=== PATIENT | female | born 1955 | race Caucasian/White ===

== ENCOUNTER → 2018-02-18 15:24 | Outpatient (CLI) | payer OTHER, SELFPAY ==
--- NOTE | 2018-02-18 15:30 | DI.RAD.S_ITS ---
PROCEDURE: XR HIP W PEL IF DONE LT MIN 4V INDICATIONS: Sprain of ligaments of lumbar spine, initial encounter TECHNIQUE: AP pelvis with lateral view(s) of both hip(s). COMPARISON: [facility], CR, XR LUMBAR SPINE 2-3V, 09/22/2017, 9:48. [facility], CR, XR HIP W PEL IF DONE LT MIN 4V, 09/22/2017, 9:57. FINDINGS: Bones: No fractures or dislocations. Pelvic ring appears intact. No suspicious bony lesions. There is mild superior joint space narrowing seen of both hips, with associated remodeling changes with subchondral sclerosis and osteophyte formation. Age-appropriate lower lumbar spine degenerative changes are noted. Soft tissues: The visualized bowel gas pattern is normal. No suspicious soft tissue calcifications. IMPRESSION: Mild degenerative change is seen of both hips by plain film. Dictated by: Marshall Blunt M.D. on 02/18/2018 at 15:50 Approved by: Marshall Blunt M.D. on 02/18/2018 at 15:51
== END ==
PROVIDERS: PCP Physical Medicine & Rehabilitation; Visit Provider Physical Medicine & Rehabilitation
DX: S33.5XXA Sprain of ligaments of lumbar spine, initial encounter (principal); M16.0 Bilateral primary osteoarthritis of hip
CPT/HCPCS: 73522

== ENCOUNTER → 2018-03-03 19:35 | Outpatient (CLI) | payer OTHER, SELFPAY ==
--- NOTE | 2018-03-03 19:36 | DI.MRI.S_ITS ---
PROCEDURE: MR PELVIS WO CON INDICATIONS: PELVIS PAIN POST GROUND LEVEL FALL TECHNIQUE: Noncontrast coronal and axial T1 spin echo and STIR through the bony pelvis. COMPARISON: [facility], CR, XR HIP W PEL IF DONE FLORA 3TO4V, 02/18/2018, 15:10. FINDINGS: Image quality: Excellent. Bones: Bone marrow of the pelvic ring, sacrum, and proximal femurs demonstrate normal overall signal. No definite bone contusions or fractures. There is mild periarticular bone marrow edema along the pubic symphysis, with a slight predominance inferiorly on the left. No discrete fracture line identified. No joint effusions. The visualized lower lumbar spine demonstrates mild degenerative disc disease at the lumbosacral junction. Tendons: The gluteus medius and minimus tendons appear intact, without associated muscle atrophy. The nearby proximal iliotibial band also appears intact. The iliopsoas tendon appears intact, without adjacent bursal fluid collections or evidence for impingement syndrome. The origin of the hamstring tendon is intact at the ischial tuberosity, as well as the associated sacrotuberous ligament. The straight and reflected heads of the rectus femoris muscle origin appear intact, as well as the conjoint tendon. Soft tissues: Visualized muscles demonstrate normal bulk and internal signal. No joint effusions. No free pelvic fluid. Bladder wall thickness is normal. There are 3 or 4 small fibroids within the left aspect of the uterus noted with incomplete evaluation. Visualized bowel loops are normal in caliber. IMPRESSION: 1. No fractures or bone contusions. 2. Mild periarticular bone marrow edema along the pubic symphysis is nonspecific and may reflect sequelae of a mild symphyseal sprain or pubic symphysitis. No discrete fracture identified. 3. Small uterine fibroids noted. Dictated by: Henok Caldwell M.D. on 03/04/2018 at 9:14 Approved by: Henok Caldwell M.D. on 03/04/2018 at 9:21
== END ==
PROVIDERS: PCP Physical Medicine & Rehabilitation; Visit Provider Physical Medicine & Rehabilitation
DX: R10.2 Pelvic and perineal pain (principal); D25.9 Leiomyoma of uterus, unspecified
CPT/HCPCS: 72195

== ENCOUNTER 2018-07-27 15:15 | Outpatient (RCR) | payer OTHER, SELFPAY ==
--- NOTE | 2017-09-30 10:50 | PT.OIE ---
Current Diagnoses Strain of muscle, fascia and tendon at neck level, initial encounter (09/29/17) Sprain of ligaments of lumbar spine, initial encounter (09/29/17) Provider Visit Care Team Role Provider Type Mee Licona MD Attending Provider Physician Primary Care Provider Specialty: Physical Medicine and Rehab Address: [address] [place] [address], [id number] Email: Physical Therapy Initial Evaluation PT-OP-A Visit Information Start: 09/30/17 09:57 Freq: Status: Active Protocol: Document 09/30/17 09:57 [facility] (Rec: 09/30/17 10:00 [facility] [email or web address]) Out-Patient Physical Therapy Visit Information Visit Information Visit Type Initial Evaluation Visit Start Time 04:00 Visit Stop Time 05:00 Total Visit Minutes 60 Visit Number 1 Number of DISABILITY AIDE Visits 0 Evaluation Information Evaluation Date 09/29/17 PT-OP-B Current Condition Start: 09/30/17 10:00 Freq: Status: Active Protocol: Document 09/30/17 10:00 [facility] (Rec: 09/30/17 10:13 [facility] [email or web address]) Current Condition History of Current Condition Onset Date 07/06/17 Current Complaints c/o sharp left sided pubic pain that occurs with sit- stand activities History of Current Condition Per patient report 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 She began having neck and back discomfort and she sought out care for these issues. The pubic bone pain came on slowly and was not addressed in PT or chiropractic. With PT, massage and child adolescent care her neck and back pain have diminished however her pubic bone symptoms are worsening and now she notes her left side of the pubic bone region aches all the time when sitting and is a sharp pain when she goes to stand. She also notes pain in the left buttock region. Breanne initially thought she had a bladder infection because of the pain in the pubic region but tests for this are negative. Prior Treatments and Tests Xrays are negative for any fractures Treatment Goals Patient/Caregiver Goals Serge's goals include eliminating her pain in the left buttock and pubic bone and that she is able to sit and perform sit to stand activities without pain. Prior Functional Status Baseline Function- ADL's Independent Baseline Function- Mobility Independent Current Functional Impairments (Reported) Functional Limitations- Other pain with sitting and pain with sit-stand activities PT-OP-C Subjective Start: 09/30/17 10:00 Freq: Status: Active Protocol: Document 09/30/17 10:00 [facility] (Rec: 09/30/17 10:13 [facility] [id number]) OP-PT Subjective Patient Comments Patient Comments Breanne describes pain in the left pubic bone as 6-8/10. It is brought on by sitting and sit-stand activities. Patient Reported Progress Worse OP-PT Pain Assessment Pain Assessment Grid Paper Pain Assessment Grid Completed Yes Location Left Groin Pain Location Details left pubic bone Intensity 8 Scale Used Numeric (1 - 10) Description Aching Sharp With Movement Frequency Intermittent Other Pain Aggravating Factors sitting and sit-stand PT-OP-J Posture/Palpation/Skin Start: 09/30/17 10:13 Freq: Status: Active Protocol: Document 09/30/17 10:14 [facility] (Rec: 09/30/17 10:48 [facility] [id number]) Posture Evaluation Position Standing Evaluation View Posterior Pelvis Posture (L) Iliac Crest Superior (R) PSIS Posterior (L) PSIS Inferior Weight Distribution Decreased Wt.Bear on (R) Comments Posture Comments Breanne is standing with weight on the left leg, if she shifts all her weight to the right pain is reproduced. Palpation Assessment Location Four Palpation Location left gluteals and piriformis Palpation Findings Soft Tissue Tightness Muscle Guarding Tenderness Three Palpation Location left sacral AWILDA and Left PSIS, right sacral base Palpation Findings Tenderness Palpation Details with palption there is a visable left torsion of the sacrum with greatest tenderness at the left AWILDA , left PSIS, and right sacral base. The right sacral base is more prominent than the left Two Palpation Location left adductos Palpation Findings Soft Tissue Tightness Spasm Muscle Guarding Tenderness Palpation Details tenderness of the left adductor at the attachment to the pubic bone and along the muscle belly. There is guarding along the muscle. No pain with AROM left hip or passive stretching of the left adductors in supine One Palpation Location pubic bone left side Palpation Findings Tenderness PT-OP-K Range of Motion Start: 09/30/17 10:13 Freq: Status: Active Protocol: Document 09/30/17 10:14 [facility] (Rec: 09/30/17 10:48 [facility] [id number]) Lumbar Spine Range of Motion Lumbar Spine Active Comments lumbar spine ROM is WFL in standing PT-OP-L Special Tests Start: 09/30/17 10:13 Freq: Status: Active Protocol: Document 09/30/17 10:14 [facility] (Rec: 09/30/17 10:48 [facility] [id number]) Special Tests Other Special Tests Special Tests standing march test is + for the left standing hip IR/ER test is + for left iliac outflare prone press up test is + for sacral torsion PT-OP-Q Treatments Start: 09/30/17 10:13 Freq: Status: Active Protocol: Document 09/30/17 10:14 [facility] (Rec: 09/30/17 10:48 [facility] [id number]) Therapeutic Exercises Supine Exercises 2 Supine Exercise Name piriformis stretch Reps/Minutes 1-2 reps each side holding 1-2 minutes each 1 Supine Exercise Name isometric ball squeeze Reps/Minutes 10 reps holding 5 seconds each Manual Therapy Treatment Soft Tissue Mobilization 1 Body Location left adductors Mobilization Type Myofascial Release Body Position Supine Comments MFR to the proximal attachment of the left adductors to the pubic ramus Joint Mobilizations 3 Joint SI joint Body Position right side Comments MET for sacral torsion 1 Joint SI joint Body Position Supine Comments MET for left iliac outflare Self-Care/Home Management Treatment Activities Self-Care/Home Management Activities the patient was educated on avoiding crossing her legs in sitting at this time. She was educated on SI alignment and to avoid single leg stance activities including dressing until her symptoms are resolved. PT-OP-T Assessment and Plan Start: 09/30/17 10:13 Freq: Status: Active Protocol: Document 09/30/17 10:14 [facility] (Rec: 09/30/17 10:48 [facility] [id number]) Physical Therapy Assessment Rehab Potential Rehabilitation Potential Excellent Evaluation Complexity Number of Personal Factors/Comorbidities 0 Number of Body Systems Impaired 1-2 Clinical Presentation at Evaluation Stable Impairments Impairments Activity Tolerance Pain Soft Tissue Mobility Other Impairments SI dysfunction Goals Four Impairment The patient lacks a home program for SI and pubic bone stabilization Short Term Goal (STG) Breanne will be given a home program for SI and pubic bone stabilization including pelvic floor training for the pubic bone and transverse abdominal training for the Si joint STG Duration 6 weeks Three Impairment Sacral torsion and out flare of the left innominant Short Term Goal (STG) correct sacral and SI alignment with manual therapy techniques and there is no tenderness to palpation at bony landmarks of the SI joint or along the sacrum STG Duration 6 weeks Two Impairment muscle guarding and spasm of the left adductor Short Term Goal (STG) With manual therapy techniques there is no longer spasm and tenderness to palpation of the left adductor STG Duration 4 weeks One Impairment pain at the left pubic bone with sitting and sit-stand Fdc Goal (LTG) Breanne reports no pain in sitting and is able to transfer from sit-stand without pain LTG Duration 8 weeks Assessment Summary Assessment Breanne presents to physical therapy with ongoing pain in the left pubic bone that has been worsening since her fall in June on her left hip and buttock. With examination today her it was found that her sacrum is in a left torsion and the ilium is outflared. This may be placing strain into the left pubic bone. She was tender to palpation at the left pubic bone but the joint did appear to be in alignment and her leg length was equal in supine. The adductor is very tight and guarded on the left but there was no pain reporduced with hip abduction. She has difficutly with hip ER in standing actively but all other movements are WFL. I worked on MFR for the left adductors as well as MET today for SI and sacral alignment and Breanne was educated on a bracing technique for the pubic bone to help with self alignment of her SI joint. Home education was given on avoiding single leg stance activities as well as crossing her legs until pain subsides. Physical Therapy Plan Frequency and Duration Frequency of Treatment 2x/Week Duration of Treatment 8 weeks Plan of Care Start Date 09/29/17 Plan of Care End Date 11/24/17 Therapeutic Interventions Therapeutic Interventions Home Exercise Program Joint Mobilizations Manual Therapy Neuromuscular Re-education Patient/Caregiver Education Self-Care/Home Management Soft Tissue Mobilization Therapeutic Exercises Modalities Cold Pack/Ice Massage Ultrasound Next Visit Focus/Plan Next Visit Plan recheck pelvic alignment next visit and progress SI and pubic bone stabilization exercises Provider Signature Date
--- NOTE | 2017-09-30 10:52 | PT.OPPOC ---
Current Diagnoses Strain of muscle, fascia and tendon at neck level, initial encounter (09/29/17) Sprain of ligaments of lumbar spine, initial encounter (09/29/17) Provider Visit Care Team Role Provider Type Mee Licona MD Attending Provider Physician Primary Care Provider Specialty: Physical Medicine and Rehab Address: [address] [place] [address], [id number] Email: Plan Of Care PT-OP-T Assessment and Plan Start: 09/30/17 10:13 Freq: Status: Active Protocol: Document 09/30/17 10:14 [facility] (Rec: 09/30/17 10:48 [facility] [email or web address]) Physical Therapy Assessment Rehab Potential Rehabilitation Potential Excellent Evaluation Complexity Number of Personal Factors/Comorbidities 0 Number of Body Systems Impaired 1-2 Clinical Presentation at Evaluation Stable Impairments Impairments Activity Tolerance Pain Soft Tissue Mobility Other Impairments SI dysfunction Goals Four Impairment The patient lacks a home program for SI and pubic bone stabilization Short Term Goal (STG) Breanne will be given a home program for SI and pubic bone stabilization including pelvic floor training for the pubic bone and transverse abdominal training for the Si joint STG Duration 6 weeks Three Impairment Sacral torsion and out flare of the left innominant Short Term Goal (STG) correct sacral and SI alignment with manual therapy techniques and there is no tenderness to palpation at bony landmarks of the SI joint or along the sacrum STG Duration 6 weeks Two Impairment muscle guarding and spasm of the left adductor Short Term Goal (STG) With manual therapy techniques there is no longer spasm and tenderness to palpation of the left adductor STG Duration 4 weeks One Impairment pain at the left pubic bone with sitting and sit-stand Manager [employer] Goal (LTG) Breanne reports no pain in sitting and is able to transfer from sit-stand without pain LTG Duration 8 weeks Assessment Summary Assessment Breanne presents to physical therapy with ongoing pain in the left pubic bone that has been worsening since her fall in June on her left hip and buttock. With examination today her it was found that her sacrum is in a left torsion and the ilium is outflared. This may be placing strain into the left pubic bone. She was tender to palpation at the left pubic bone but the joint did appear to be in alignment and her leg length was equal in supine. The adductor is very tight and guarded on the left but there was no pain reporduced with hip abduction. She has difficutly with hip ER in standing actively but all other movements are WFL. I worked on MFR for the left adductors as well as MET today for SI and sacral alignment and Breanne was educated on a bracing technique for the pubic bone to help with self alignment of her SI joint. Home education was given on avoiding single leg stance activities as well as crossing her legs until pain subsides. Physical Therapy Plan Frequency and Duration Frequency of Treatment 2x/Week Duration of Treatment 8 weeks Plan of Care Start Date 09/29/17 Plan of Care End Date 11/24/17 Therapeutic Interventions Therapeutic Interventions Home Exercise Program Joint Mobilizations Manual Therapy Neuromuscular Re-education Patient/Caregiver Education Self-Care/Home Management Soft Tissue Mobilization Therapeutic Exercises Modalities Cold Pack/Ice Massage Ultrasound Next Visit Focus/Plan Next Visit Plan recheck pelvic alignment next visit and progress SI and pubic bone stabilization exercises Plan of Care Dates Plan of Care Start Date 09/29/17 Plan of Care End Date 11/24/17 Please Sign and Return: I have reviewed this Plan of Care and certify that the skilled therapy services above are required to meet the patient???s needs. Physician Signature Date Printed Name and Credentials
--- NOTE | 2017-10-01 16:57 | PT.OTN ---
Current Diagnoses Strain of muscle, fascia and tendon at neck level, initial encounter (10/01/17) Sprain of ligaments of lumbar spine, initial encounter (10/01/17) Physical Therapy Treatment Note PT-OP-A Visit Information Start: 09/30/17 09:57 Freq: Status: Active Protocol: Document 09/30/17 09:57 [facility] (Rec: 09/30/17 10:00 [facility] [id number]) Out-Patient Physical Therapy Visit Information Visit Information Visit Type Initial Evaluation Visit Start Time 04:00 Visit Stop Time 05:00 Total Visit Minutes 60 Visit Number 1 Number of MANUFACTURED BUILDINGS SUPERVISOR Visits 0 Evaluation Information Evaluation Date 09/29/17 PT-OP-B Current Condition Start: 09/30/17 10:00 Freq: Status: Active Protocol: Document 09/30/17 10:00 [facility] (Rec: 09/30/17 10:13 [facility] [id number]) Current Condition History of Current Condition Onset Date 07/06/17 Current Complaints c/o sharp left sided pubic pain that occurs with sit- stand activities History of Current Condition Per patient report 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 She began having neck and back discomfort and she sought out care for these issues. The pubic bone pain came on slowly and was not addressed in PT or chiropractic. With PT, massage and child care teacher her neck and back pain have diminished however her pubic bone symptoms are worsening and now she notes her left side of the pubic bone region aches all the time when sitting and is a sharp pain when she goes to stand. She also notes pain in the left buttock region. Beranne initially thought she had a bladder infection because of the pain in the pubic region but tests for this are negative. Prior Treatments and Tests Xrays are negative for any fractures Treatment Goals Patient/Caregiver Goals Serge's goals include eliminating her pain in the left buttock and pubic bone and that she is able to sit and perform sit to stand activities without pain. Prior Functional Status Baseline Function- ADL's Independent Baseline Function- Mobility Independent Current Functional Impairments (Reported) Functional Limitations- Other pain with sitting and pain with sit-stand activities PT-OP-C Subjective Start: 09/30/17 10:00 Freq: Status: Active Protocol: Document 10/01/17 16:43 [facility] (Rec: 10/01/17 16:56 [facility] [id number]) OP-PT Subjective Patient Comments Patient Comments Breanne reports that her symptoms are much improved and she hasn't had the sharp pain with transitions or sit-stand as bad Patient Reported Progress Improving PT-OP-J Posture/Palpation/Skin Start: 09/30/17 10:13 Freq: Status: Active Protocol: Document 09/30/17 10:14 [facility] (Rec: 09/30/17 10:48 [facility] [email or web address]) Posture Evaluation Position Standing Evaluation View Posterior Pelvis Posture (L) Iliac Crest Superior (R) PSIS Posterior (L) PSIS Inferior Weight Distribution Decreased Wt.Bear on (R) Comments Posture Comments Breanne is standing with weight on the left leg, if she shifts all her weight to the right pain is reproduced. Palpation Assessment Location Four Palpation Location left gluteals and piriformis Palpation Findings Soft Tissue Tightness Muscle Guarding Tenderness Three Palpation Location left sacral AWILDA and Left PSIS, right sacral base Palpation Findings Tenderness Palpation Details with palption there is a visable left torsion of the sacrum with greatest tenderness at the left AWILDA , left PSIS, and right sacral base. The right sacral base is more prominent than the left Two Palpation Location left adductos Palpation Findings Soft Tissue Tightness Spasm Muscle Guarding Tenderness Palpation Details tenderness of the left adductor at the attachment to the pubic bone and along the muscle belly. There is guarding along the muscle. No pain with AROM left hip or passive stretching of the left adductors in supine One Palpation Location pubic bone left side Palpation Findings Tenderness PT-OP-K Range of Motion Start: 09/30/17 10:13 Freq: Status: Active Protocol: Document 09/30/17 10:14 [facility] (Rec: 09/30/17 10:48 [facility] [id number]) Lumbar Spine Range of Motion Lumbar Spine Active Comments lumbar spine ROM is WFL in standing PT-OP-L Special Tests Start: 09/30/17 10:13 Freq: Status: Active Protocol: Document 09/30/17 10:14 [facility] (Rec: 09/30/17 10:48 [facility] [email or web address]) Special Tests Other Special Tests Special Tests standing march test is + for the left standing hip IR/ER test is + for left iliac outflare prone press up test is + for sacral torsion PT-OP-Q Treatments Start: 09/30/17 10:13 Freq: Status: Active Protocol: Document 10/01/17 16:43 [facility] (Rec: 10/01/17 16:56 [facility] [id number]) Therapeutic Exercises Supine Exercises 2 Supine Exercise Name piriformis stretch Reps/Minutes 1-2 reps each side holding 1-2 minutes each 1 Supine Exercise Name isometric ball squeeze Reps/Minutes 10 reps holding 5 seconds each Other Exercises 1 Other Exercise Name quadraped cat cow and sidebends Reps/Minutes 10 reps each Comments for home exercise program Manual Therapy Treatment Soft Tissue Mobilization 2 Body Location left piriformis Mobilization Type Myofascial Release Intensity/Depth Moderate Body Position Prone Comments MFR along the sacral border and into the muscle belly of the piriformis 1 Body Location left adductors Mobilization Type Myofascial Release Body Position Supine Comments MFR to the proximal attachment of the left adductors to the pubic ramus Joint Mobilizations 1 Joint SI joint Body Position Supine Comments MET for left iliac outflare PT-OP-T Assessment and Plan Start: 09/30/17 10:13 Freq: Status: Active Protocol: Document 10/01/17 16:43 [facility] (Rec: 10/01/17 16:56 [facility] [email or web address]) Physical Therapy Assessment Assessment Summary Assessment Breanne is doing better from last visit. There is still tightness at the adductors but this is reduced overall and she noted that MFR over the adductors was not as tender today. In prone she is slightly rotated to the right still but her basia landmarks on the sacral base are equal. She is spin tank tender to palpation at the L PSIS Physical Therapy Plan Next Visit Focus/Plan Next Visit Plan add in pelvic floor stabilization next visit and prone opp leg extension
--- NOTE | 2017-10-07 09:52 | PT.OTN ---
Current Diagnoses Strain of muscle, fascia and tendon at neck level, initial encounter (10/06/17) Sprain of ligaments of lumbar spine, initial encounter (10/06/17) Physical Therapy Treatment Note PT-OP-A Visit Information Start: 09/30/17 09:57 Freq: Status: Active Protocol: Document 10/06/17 16:45 [facility] (Rec: 10/07/17 09:52 [facility] [email or web address]) Out-Patient Physical Therapy Visit Information Visit Information Visit Type Treatment Note Visit Start Time 14:30 Visit Stop Time 15:15 Total Visit Minutes 45 Visit Number 3 Number of INSURANCE RATER Visits 0 PT-OP-B Current Condition Start: 09/30/17 10:00 Freq: Status: Active Protocol: Document 09/30/17 10:00 [facility] (Rec: 09/30/17 10:13 [facility] [email or web address]) Current Condition History of Current Condition Onset Date 07/06/17 Current Complaints c/o sharp left sided pubic pain that occurs with sit- stand activities History of Current Condition Per patient report 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 She began having neck and back discomfort and she sought out care for these issues. The pubic bone pain came on slowly and was not addressed in PT or chiropractic. With PT, massage and director medicare sales her neck and back pain have diminished however her pubic bone symptoms are worsening and now she notes her left side of the pubic bone region aches all the time when sitting and is a sharp pain when she goes to stand. She also notes pain in the left buttock region. Breanne initially thought she had a bladder infection because of the pain in the pubic region but tests for this are negative. Prior Treatments and Tests Xrays are negative for any fractures Treatment Goals Patient/Caregiver Goals Serge's goals include eliminating her pain in the left buttock and pubic bone and that she is able to sit and perform sit to stand activities without pain. Prior Functional Status Baseline Function- ADL's Independent Baseline Function- Mobility Independent Current Functional Impairments (Reported) Functional Limitations- Other pain with sitting and pain with sit-stand activities PT-OP-C Subjective Start: 09/30/17 10:00 Freq: Status: Active Protocol: Document 10/06/17 17:38 [facility] (Rec: 10/06/17 17:42 [facility] [email or web address]) OP-PT Subjective Patient Comments Patient Comments breanne notes her pain isn't as sharp but within a few days of treatment she was experiencing symptoms again Patient Reported Progress Improving PT-OP-J Posture/Palpation/Skin Start: 09/30/17 10:13 Freq: Status: Active Protocol: Document 09/30/17 10:14 [facility] (Rec: 09/30/17 10:48 [facility] [email or web address]) Posture Evaluation Position Standing Evaluation View Posterior Pelvis Posture (L) Iliac Crest Superior (R) PSIS Posterior (L) PSIS Inferior Weight Distribution Decreased Wt.Bear on (R) Comments Posture Comments Breanne is standing with weight on the left leg, if she shifts all her weight to the right pain is reproduced. Palpation Assessment Location Four Palpation Location left gluteals and piriformis Palpation Findings Soft Tissue Tightness Muscle Guarding Tenderness Three Palpation Location left sacral AWILDA and Left PSIS, right sacral base Palpation Findings Tenderness Palpation Details with palption there is a visable left torsion of the sacrum with greatest tenderness at the left AWILDA , left PSIS, and right sacral base. The right sacral base is more prominent than the left Two Palpation Location left adductos Palpation Findings Soft Tissue Tightness Spasm Muscle Guarding Tenderness Palpation Details tenderness of the left adductor at the attachment to the pubic bone and along the muscle belly. There is guarding along the muscle. No pain with AROM left hip or passive stretching of the left adductors in supine One Palpation Location pubic bone left side Palpation Findings Tenderness PT-OP-K Range of Motion Start: 09/30/17 10:13 Freq: Status: Active Protocol: Document 09/30/17 10:14 [facility] (Rec: 09/30/17 10:48 [facility] [email or web address]) Lumbar Spine Range of Motion Lumbar Spine Active Comments lumbar spine ROM is WFL in standing PT-OP-L Special Tests Start: 09/30/17 10:13 Freq: Status: Active Protocol: Document 09/30/17 10:14 [facility] (Rec: 09/30/17 10:48 [facility] [email or web address]) Special Tests Other Special Tests Special Tests standing july test is + for the left standing hip IR/ER test is + for left iliac outflare prone press up test is + for sacral torsion PT-OP-Q Treatments Start: 09/30/17 10:13 Freq: Status: Active Protocol: Document 10/06/17 17:38 [facility] (Rec: 10/06/17 17:42 [facility] [email or web address]) Therapeutic Exercises Supine Exercises 5 Supine Exercise Name pelvic floor isolation 10 seconds on 10 seconds off Reps/Minutes 10 reps 4 Supine Exercise Name Sit-stand with TA and pelvic floor engagement Comments no pain if she engages her pelvic floor and TA 3 Supine Exercise Name TA stabilization with marches Reps/Minutes 10-20 2 Supine Exercise Name piriformis stretch Reps/Minutes 1-2 reps each side holding 1-2 minutes each 1 Supine Exercise Name isometric ball squeeze Reps/Minutes 10 reps holding 5 seconds each Manual Therapy Treatment Soft Tissue Mobilization 2 Body Location left piriformis Mobilization Type Myofascial Release Intensity/Depth Moderate Body Position Prone Comments MFR along the sacral border and into the muscle belly of the piriformis Joint Mobilizations 3 Joint SI joint Body Position right side Comments MET for sacral torsion PT-OP-T Assessment and Plan Start: 09/30/17 10:13 Freq: Status: Active Protocol: Document 10/06/17 16:45 [facility] (Rec: 10/07/17 09:52 [facility] [email or web address]) Physical Therapy Assessment Assessment Summary Assessment Decreased sharp pain in the pubic bone. L ASLR test is positive with unlocking of the Si joint. Treatment today included TA stabilization and education on pelvic floor and TA activation prior to standing. With TA and pelvic floor activation prior to standing Breanne did not experience any pain with sit to stand. She was also given a temporaty SI belt and this also helped with sit to stand Physical Therapy Plan Frequency and Duration Frequency of Treatment 2x/Week Duration of Treatment 8 weeks Plan of Care Start Date 09/29/17 Plan of Care End Date 11/24/17 Therapeutic Interventions Therapeutic Interventions Home Exercise Program Joint Mobilizations Manual Therapy Neuromuscular Re-education Patient/Caregiver Education Self-Care/Home Management Soft Tissue Mobilization Therapeutic Exercises Next Visit Focus/Plan Next Visit Plan review special tests and look at TA and pelvic floor activation
--- NOTE | 2017-10-13 18:08 | PT.OTN ---
Current Diagnoses Strain of muscle, fascia and tendon at neck level, initial encounter (10/13/17) Sprain of ligaments of lumbar spine, initial encounter (10/13/17) Physical Therapy Treatment Note PT-OP-A Visit Information Start: 09/30/17 09:57 Freq: Status: Active Protocol: Document 10/13/17 15:34 [facility] (Rec: 10/13/17 15:36 [facility] [email or web address]) Out-Patient Physical Therapy Visit Information Visit Information Visit Type Treatment Note Visit Start Time 14:30 Visit Stop Time 15:15 Total Visit Minutes 45 Visit Number 4 Evaluation Information Evaluation Date 09/29/17 PT-OP-B Current Condition Start: 09/30/17 10:00 Freq: Status: Active Protocol: Document 09/30/17 10:00 [facility] (Rec: 09/30/17 10:13 [facility] [email or web address]) Current Condition History of Current Condition Onset Date 07/06/17 Current Complaints c/o sharp left sided pubic pain that occurs with sit- stand activities History of Current Condition Per patient report 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 She began having neck and back discomfort and she sought out care for these issues. The pubic bone pain came on slowly and was not addressed in PT or chiropractic. With PT, massage and patient care secretary her neck and back pain have diminished however her pubic bone symptoms are worsening and now she notes her left side of the pubic bone region aches all the time when sitting and is a sharp pain when she goes to stand. She also notes pain in the left buttock region. Breanne initially thought she had a bladder infection because of the pain in the pubic region but tests for this are negative. Prior Treatments and Tests Xrays are negative for any fractures Treatment Goals Patient/Caregiver Goals Serge's goals include eliminating her pain in the left buttock and pubic bone and that she is able to sit and perform sit to stand activities without pain. Prior Functional Status Baseline Function- ADL's Independent Baseline Function- Mobility Independent Current Functional Impairments (Reported) Functional Limitations- Other pain with sitting and pain with sit-stand activities PT-OP-C Subjective Start: 09/30/17 10:00 Freq: Status: Active Protocol: Document 10/13/17 15:34 [facility] (Rec: 10/13/17 15:36 [facility] [email or web address]) OP-PT Subjective Patient Comments Patient Comments Breanne reports she has no sharp pain now but a dull ache in the pelvic floor region on the left. PT-OP-J Posture/Palpation/Skin Start: 09/30/17 10:13 Freq: Status: Active Protocol: Document 09/30/17 10:14 [facility] (Rec: 09/30/17 10:48 [facility] [email or web address]) Posture Evaluation Position Standing Evaluation View Posterior Pelvis Posture (L) Iliac Crest Superior (R) PSIS Posterior (L) PSIS Inferior Weight Distribution Decreased Wt.Bear on (R) Comments Posture Comments Breanne is standing with weight on the left leg, if she shifts all her weight to the right pain is reproduced. Palpation Assessment Location Four Palpation Location left gluteals and piriformis Palpation Findings Soft Tissue Tightness Muscle Guarding Tenderness Three Palpation Location left sacral AWILDA and Left PSIS, right sacral base Palpation Findings Tenderness Palpation Details with palption there is a visable left torsion of the sacrum with greatest tenderness at the left AWILDA , left PSIS, and right sacral base. The right sacral base is more prominent than the left Two Palpation Location left adductos Palpation Findings Soft Tissue Tightness Spasm Muscle Guarding Tenderness Palpation Details tenderness of the left adductor at the attachment to the pubic bone and along the muscle belly. There is guarding along the muscle. No pain with AROM left hip or passive stretching of the left adductors in supine One Palpation Location pubic bone left side Palpation Findings Tenderness PT-OP-K Range of Motion Start: 09/30/17 10:13 Freq: Status: Active Protocol: Document 09/30/17 10:14 [facility] (Rec: 09/30/17 10:48 [facility] [email or web address]) Lumbar Spine Range of Motion Lumbar Spine Active Comments lumbar spine ROM is WFL in standing PT-OP-L Special Tests Start: 09/30/17 10:13 Freq: Status: Active Protocol: Document 09/30/17 10:14 [facility] (Rec: 09/30/17 10:48 [facility] [email or web address]) Special Tests Other Special Tests Special Tests standing july test is + for the left standing hip IR/ER test is + for left iliac outflare prone press up test is + for sacral torsion PT-OP-Q Treatments Start: 09/30/17 10:13 Freq: Status: Active Protocol: Document 10/13/17 16:01 [facility] (Rec: 10/13/17 18:06 [facility] [email or web address]) Therapeutic Exercises Supine Exercises 6 Supine Exercise Name happy baby Reps/Minutes hold 1-2 min 3 Supine Exercise Name TA stabilization with marches Reps/Minutes 10-20 2 Supine Exercise Name piriformis stretch Reps/Minutes 1-2 reps each side holding 1-2 minutes each 1 Supine Exercise Name isometric ball squeeze Reps/Minutes 10 reps holding 5 seconds each Manual Therapy Treatment Soft Tissue Mobilization 2 Body Location left obturator internus Mobilization Type Myofascial Release Intensity/Depth Moderate Body Position Supine PT-OP-R Modalities Start: 10/13/17 18:06 Freq: Status: Active Protocol: Document 10/13/17 18:06 [facility] (Rec: 10/13/17 18:07 [facility] [email or web address]) Ultrasound Therapy Treatment Left Patient Position Supine Coupling Medium Ultrasound Gel Frequency Setting (mHz) 1 Mode Setting Continuous Intensity Setting (w/cm2) 1.5 Patient Tolerance Good Comment Treatment Comment left obuturator internus in supine PT-OP-T Assessment and Plan Start: 09/30/17 10:13 Freq: Status: Active Protocol: Document 10/13/17 16:01 [facility] (Rec: 10/13/17 18:06 [facility] [email or web address]) Physical Therapy Assessment Assessment Summary Assessment no complaints of sharp pain now and instead a dull ache in the left pelvic floor region Physical Therapy Plan Frequency and Duration Frequency of Treatment 2x/Week Duration of Treatment 8 weeks Plan of Care Start Date 09/29/17 Plan of Care End Date 11/24/17 Therapeutic Interventions Therapeutic Interventions Home Exercise Program Joint Mobilizations Manual Therapy Neuromuscular Re-education Patient/Caregiver Education Self-Care/Home Management Soft Tissue Mobilization Therapeutic Exercises Next Visit Focus/Plan Next Visit Plan reassess muscle guarding of the pelvic floor Please Sign and Return: I have reviewed this Plan of Care and certify that the skilled therapy services above are required to meet the patient???s needs. Physician Signature Date Printed Name and Credentials Clinical Instructor Signature Printed Name and Credentials
--- NOTE | 2017-11-01 22:10 | PT.OTN ---
Current Diagnoses Strain of muscle, fascia and tendon at neck level, initial encounter (10/29/17) Sprain of ligaments of lumbar spine, initial encounter (10/29/17) Physical Therapy Treatment Note PT-OP-A Visit Information Start: 09/30/17 09:57 Freq: Status: Active Protocol: Document 10/29/17 02:30 [facility] (Rec: 11/01/17 21:56 [facility] [email or web address]) Out-Patient Physical Therapy Visit Information Visit Information Visit Type Treatment Note Visit Start Time 14:30 Visit Stop Time 15:15 Total Visit Minutes 45 Visit Number 5 PT-OP-B Current Condition Start: 09/30/17 10:00 Freq: Status: Active Protocol: Document 09/30/17 10:00 [facility] (Rec: 09/30/17 10:13 [facility] [email or web address]) Current Condition History of Current Condition Onset Date 07/06/17 Current Complaints c/o sharp left sided pubic pain that occurs with sit- stand activities History of Current Condition Per patient report 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 She began having neck and back discomfort and she sought out care for these issues. The pubic bone pain came on slowly and was not addressed in PT or chiropractic. With PT, massage and foster care worker her neck and back pain have diminished however her pubic bone symptoms are worsening and now she notes her left side of the pubic bone region aches all the time when sitting and is a sharp pain when she goes to stand. She also notes pain in the left buttock region. Breanne initially thought she had a bladder infection because of the pain in the pubic region but tests for this are negative. Prior Treatments and Tests Xrays are negative for any fractures Treatment Goals Patient/Caregiver Goals Serge's goals include eliminating her pain in the left buttock and pubic bone and that she is able to sit and perform sit to stand activities without pain. Prior Functional Status Baseline Function- ADL's Independent Baseline Function- Mobility Independent Current Functional Impairments (Reported) Functional Limitations- Other pain with sitting and pain with sit-stand activities PT-OP-C Subjective Start: 09/30/17 10:00 Freq: Status: Active Protocol: Document 10/29/17 02:30 [facility] (Rec: 11/01/17 21:56 [facility] [email or web address]) OP-PT Subjective Patient Comments Patient Comments Breanne reports she can tell she didn't do PT for 2 weeks and is sore again in her adductors. The sharp pain is gone but she still has achey pain. She has been doing testing this past week so she has been sitting more PT-OP-J Posture/Palpation/Skin Start: 09/30/17 10:13 Freq: Status: Active Protocol: Document 09/30/17 10:14 [facility] (Rec: 09/30/17 10:48 [facility] [email or web address]) Posture Evaluation Position Standing Evaluation View Posterior Pelvis Posture (L) Iliac Crest Superior (R) PSIS Posterior (L) PSIS Inferior Weight Distribution Decreased Wt.Bear on (R) Comments Posture Comments Breanne is standing with weight on the left leg, if she shifts all her weight to the right pain is reproduced. Palpation Assessment Location Four Palpation Location left gluteals and piriformis Palpation Findings Soft Tissue Tightness Muscle Guarding Tenderness Three Palpation Location left sacral AWILDA and Left PSIS, right sacral base Palpation Findings Tenderness Palpation Details with palption there is a visable left torsion of the sacrum with greatest tenderness at the left AWILDA , left PSIS, and right sacral base. The right sacral base is more prominent than the left Two Palpation Location left adductos Palpation Findings Soft Tissue Tightness Spasm Muscle Guarding Tenderness Palpation Details tenderness of the left adductor at the attachment to the pubic bone and along the muscle belly. There is guarding along the muscle. No pain with AROM left hip or passive stretching of the left adductors in supine One Palpation Location pubic bone left side Palpation Findings Tenderness PT-OP-K Range of Motion Start: 09/30/17 10:13 Freq: Status: Active Protocol: Document 09/30/17 10:14 [facility] (Rec: 09/30/17 10:48 [facility] [email or web address]) Lumbar Spine Range of Motion Lumbar Spine Active Comments lumbar spine ROM is WFL in standing PT-OP-L Special Tests Start: 09/30/17 10:13 Freq: Status: Active Protocol: Document 09/30/17 10:14 [facility] (Rec: 09/30/17 10:48 [facility] [email or web address]) Special Tests Other Special Tests Special Tests standing march test is + for the left standing hip IR/ER test is + for left iliac outflare prone press up test is + for sacral torsion PT-OP-Q Treatments Start: 09/30/17 10:13 Freq: Status: Active Protocol: Document 10/29/17 02:30 [facility] (Rec: 11/01/17 21:56 [facility] [email or web address]) Therapeutic Exercises Supine Exercises 6 Supine Exercise Name happy baby Reps/Minutes hold 1-2 min 5 Supine Exercise Name pelvic floor isolation 10 seconds on 10 seconds off Reps/Minutes 10 reps 3 Supine Exercise Name TA stabilization with marches Reps/Minutes 10-20 2 Supine Exercise Name piriformis stretch Reps/Minutes 1-2 reps each side holding 1-2 minutes each Manual Therapy Treatment Soft Tissue Mobilization 3 Body Location external pelvic floor release Body Position Hooklying 1 Body Location left adductor release Body Position Supine Joint Mobilizations 2 Joint left pubic upslip 3 Joint SI joint Body Position right side Comments MET for sacral torsion PT-OP-R Modalities Start: 10/13/17 18:06 Freq: Status: Active Protocol: Document 10/29/17 02:30 [facility] (Rec: 11/01/17 21:56 [facility] [email or web address]) Ultrasound Therapy Treatment Left Patient Position Supine Coupling Medium Ultrasound Gel Frequency Setting (mHz) 1 Mode Setting Continuous Intensity Setting (w/cm2) 1.5 Comments left adductor proximal attachment PT-OP-T Assessment and Plan Start: 09/30/17 10:13 Freq: Status: Active Protocol: Document 10/29/17 02:30 [facility] (Rec: 11/01/17 21:56 [facility] [email or web address]) Physical Therapy Assessment Assessment Summary Assessment tenderness in the posterior pelvic floor noted today and wondering if pelvic floor spasm could be the lingering pain Markay is experiencing. Decreased adductor tightness following treatment. Physical Therapy Plan Frequency and Duration Frequency of Treatment 2x/Week Duration of Treatment 8 weeks Plan of Care Start Date 09/29/17 Plan of Care End Date 11/24/17 Therapeutic Interventions Therapeutic Interventions Home Exercise Program Joint Mobilizations Manual Therapy Neuromuscular Re-education Patient/Caregiver Education Self-Care/Home Management Soft Tissue Mobilization Therapeutic Exercises Modalities Ultrasound Next Visit Focus/Plan Next Visit Plan consider pelvic floor EMG biofeedback for relaxed awareness of the pelvic floor. Add quadraped TA stabilization Please Sign and Return: I have reviewed this Plan of Care and certify that the skilled therapy services above are required to meet the patient?s needs. Physician Signature Date Printed Name and Credentials Clinical Instructor Signature Printed Name and Credentials
--- NOTE | 2017-11-11 09:26 | PT.OTN ---
Current Diagnoses Strain of muscle, fascia and tendon at neck level, initial encounter (11/10/17) Sprain of ligaments of lumbar spine, initial encounter (11/10/17) Physical Therapy Treatment Note PT-OP-A Visit Information Start: 09/30/17 09:57 Freq: Status: Active Protocol: Document 11/10/17 13:45 [facility] (Rec: 11/11/17 09:26 [facility] [email or web address]) Out-Patient Physical Therapy Visit Information Visit Information Visit Type Treatment Note Visit Start Time 13:45 Visit Stop Time 14:30 Total Visit Minutes 45 Visit Number 6 Number of COST ESTIMATING MANAGER Visits 0 PT-OP-B Current Condition Start: 09/30/17 10:00 Freq: Status: Active Protocol: Document 09/30/17 10:00 [facility] (Rec: 09/30/17 10:13 [facility] [email or web address]) Current Condition History of Current Condition Onset Date 07/06/17 Current Complaints c/o sharp left sided pubic pain that occurs with sit- stand activities History of Current Condition Per patient report 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 She began having neck and back discomfort and she sought out care for these issues. The pubic bone pain came on slowly and was not addressed in PT or chiropractic. With PT, massage and health care facilities inspector her neck and back pain have diminished however her pubic bone symptoms are worsening and now she notes her left side of the pubic bone region aches all the time when sitting and is a sharp pain when she goes to stand. She also notes pain in the left buttock region. Breanne initially thought she had a bladder infection because of the pain in the pubic region but tests for this are negative. Prior Treatments and Tests Xrays are negative for any fractures Treatment Goals Patient/Caregiver Goals Serge's goals include eliminating her pain in the left buttock and pubic bone and that she is able to sit and perform sit to stand activities without pain. Prior Functional Status Baseline Function- ADL's Independent Baseline Function- Mobility Independent Current Functional Impairments (Reported) Functional Limitations- Other pain with sitting and pain with sit-stand activities PT-OP-C Subjective Start: 09/30/17 10:00 Freq: Status: Active Protocol: Document 11/10/17 13:45 [facility] (Rec: 11/11/17 09:26 [facility] [email or web address]) OP-PT Subjective Patient Comments Patient Comments Breanne reports she does well after PT for a few days but with two weeks inbetween treatments she becomes sore again. Not the sharp pain but dull and achey. PT-OP-J Posture/Palpation/Skin Start: 09/30/17 10:13 Freq: Status: Active Protocol: Document 09/30/17 10:14 [facility] (Rec: 09/30/17 10:48 [facility] [email or web address]) Posture Evaluation Position Standing Evaluation View Posterior Pelvis Posture (L) Iliac Crest Superior (R) PSIS Posterior (L) PSIS Inferior Weight Distribution Decreased Wt.Bear on (R) Comments Posture Comments Breanne is standing with weight on the left leg, if she shifts all her weight to the right pain is reproduced. Palpation Assessment Location Four Palpation Location left gluteals and piriformis Palpation Findings Soft Tissue Tightness Muscle Guarding Tenderness Three Palpation Location left sacral AWILDA and Left PSIS, right sacral base Palpation Findings Tenderness Palpation Details with palption there is a visable left torsion of the sacrum with greatest tenderness at the left AWILDA , left PSIS, and right sacral base. The right sacral base is more prominent than the left Two Palpation Location left adductos Palpation Findings Soft Tissue Tightness Spasm Muscle Guarding Tenderness Palpation Details tenderness of the left adductor at the attachment to the pubic bone and along the muscle belly. There is guarding along the muscle. No pain with AROM left hip or passive stretching of the left adductors in supine One Palpation Location pubic bone left side Palpation Findings Tenderness PT-OP-K Range of Motion Start: 09/30/17 10:13 Freq: Status: Active Protocol: Document 09/30/17 10:14 [facility] (Rec: 09/30/17 10:48 [facility] [email or web address]) Lumbar Spine Range of Motion Lumbar Spine Active Comments lumbar spine ROM is WFL in standing PT-OP-L Special Tests Start: 09/30/17 10:13 Freq: Status: Active Protocol: Document 09/30/17 10:14 [facility] (Rec: 09/30/17 10:48 [facility] [email or web address]) Special Tests Other Special Tests Special Tests standing march test is + for the left standing hip IR/ER test is + for left iliac outflare prone press up test is + for sacral torsion PT-OP-Q Treatments Start: 09/30/17 10:13 Freq: Status: Active Protocol: Document 11/10/17 13:45 [facility] (Rec: 11/11/17 09:26 [facility] [email or web address]) Manual Therapy Treatment Soft Tissue Mobilization 3 Body Location external pelvic floor release Body Position Hooklying 2 Body Location left obturator internus Mobilization Type Myofascial Release Intensity/Depth Moderate Body Position Supine Comments prone, supine and sidelying 1 Body Location left adductor release Body Position Supine PT-OP-R Modalities Start: 10/13/17 18:06 Freq: Status: Active Protocol: Document 11/10/17 13:45 [facility] (Rec: 11/11/17 09:26 [facility] [email or web address]) Ultrasound Therapy Treatment Left Patient Position Supine Coupling Medium Ultrasound Gel Frequency Setting (mHz) 1 Mode Setting Continuous Intensity Setting (w/cm2) 1.5 Comments left adductor proximal attachment PT-OP-T Assessment and Plan Start: 09/30/17 10:13 Freq: Status: Active Protocol: Document 11/10/17 13:45 [facility] (Rec: 11/11/17 09:26 [facility] [email or web address]) Physical Therapy Assessment Assessment Summary Assessment symptoms seem to be more pelvic floor related now than adductor related. Worked on obturator internus release, pelvic floor contract relax and stretches for the pelvic floor. Breanne may benefit from EMG biofeedback for relaxed awareness of the pelvic floor Physical Therapy Plan Frequency and Duration Frequency of Treatment 2x/Week Duration of Treatment 8 weeks Plan of Care Start Date 09/29/17 Plan of Care End Date 11/24/17 Therapeutic Interventions Therapeutic Interventions Home Exercise Program Joint Mobilizations Manual Therapy Neuromuscular Re-education Patient/Caregiver Education Self-Care/Home Management Soft Tissue Mobilization Therapeutic Exercises Modalities Ultrasound Next Visit Focus/Plan Next Visit Plan reassess leg length next visit and continue to progress strength of the inner core
--- NOTE | 2017-12-01 18:20 | PT.OTN ---
Current Diagnoses Strain of muscle, fascia and tendon at neck level, initial encounter (12/01/17) Sprain of ligaments of lumbar spine, initial encounter (12/01/17) Physical Therapy Treatment Note PT-OP-A Visit Information Start: 09/30/17 09:57 Freq: Status: Active Protocol: Document 12/01/17 18:16 [facility] (Rec: 12/01/17 18:20 [facility] [email or web address]) Out-Patient Physical Therapy Visit Information Visit Information Visit Type Treatment Note Visit Start Time 15:25 Visit Stop Time 16:00 Total Visit Minutes 35 Visit Number 7 Number of POLICY SERVICES REPRESENTATIVE Visits 0 PT-OP-B Current Condition Start: 09/30/17 10:00 Freq: Status: Active Protocol: Document 09/30/17 10:00 [facility] (Rec: 09/30/17 10:13 [facility] [email or web address]) Current Condition History of Current Condition Onset Date 07/06/17 Current Complaints c/o sharp left sided pubic pain that occurs with sit- stand activities History of Current Condition Per patient report 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 She began having neck and back discomfort and she sought out care for these issues. The pubic bone pain came on slowly and was not addressed in PT or chiropractic. With PT, massage and post acute care nurse practitioner her neck and back pain have diminished however her pubic bone symptoms are worsening and now she notes her left side of the pubic bone region aches all the time when sitting and is a sharp pain when she goes to stand. She also notes pain in the left buttock region. Breanne initially thought she had a bladder infection because of the pain in the pubic region but tests for this are negative. Prior Treatments and Tests Xrays are negative for any fractures Treatment Goals Patient/Caregiver Goals Serge's goals include eliminating her pain in the left buttock and pubic bone and that she is able to sit and perform sit to stand activities without pain. Prior Functional Status Baseline Function- ADL's Independent Baseline Function- Mobility Independent Current Functional Impairments (Reported) Functional Limitations- Other pain with sitting and pain with sit-stand activities PT-OP-C Subjective Start: 09/30/17 10:00 Freq: Status: Active Protocol: Document 12/01/17 18:16 [facility] (Rec: 12/01/17 18:20 [facility] [email or web address]) OP-PT Subjective Patient Comments Patient Comments overall good improvement and Breanne notes she doesn't feel she needs the SI belt any more PT-OP-J Posture/Palpation/Skin Start: 09/30/17 10:13 Freq: Status: Active Protocol: Document 09/30/17 10:14 [facility] (Rec: 09/30/17 10:48 [facility] [email or web address]) Posture Evaluation Position Standing Evaluation View Posterior Pelvis Posture (L) Iliac Crest Superior (R) PSIS Posterior (L) PSIS Inferior Weight Distribution Decreased Wt.Bear on (R) Comments Posture Comments Breanne is standing with weight on the left leg, if she shifts all her weight to the right pain is reproduced. Palpation Assessment Location Four Palpation Location left gluteals and piriformis Palpation Findings Soft Tissue Tightness Muscle Guarding Tenderness Three Palpation Location left sacral AWILDA and Left PSIS, right sacral base Palpation Findings Tenderness Palpation Details with palption there is a visable left torsion of the sacrum with greatest tenderness at the left AWILDA , left PSIS, and right sacral base. The right sacral base is more prominent than the left Two Palpation Location left adductos Palpation Findings Soft Tissue Tightness Spasm Muscle Guarding Tenderness Palpation Details tenderness of the left adductor at the attachment to the pubic bone and along the muscle belly. There is guarding along the muscle. No pain with AROM left hip or passive stretching of the left adductors in supine One Palpation Location pubic bone left side Palpation Findings Tenderness PT-OP-K Range of Motion Start: 09/30/17 10:13 Freq: Status: Active Protocol: Document 09/30/17 10:14 [facility] (Rec: 09/30/17 10:48 [facility] [email or web address]) Lumbar Spine Range of Motion Lumbar Spine Active Comments lumbar spine ROM is WFL in standing PT-OP-L Special Tests Start: 09/30/17 10:13 Freq: Status: Active Protocol: Document 09/30/17 10:14 [facility] (Rec: 09/30/17 10:48 [facility] [email or web address]) Special Tests Other Special Tests Special Tests standing march test is + for the left standing hip IR/ER test is + for left iliac outflare prone press up test is + for sacral torsion PT-OP-Q Treatments Start: 09/30/17 10:13 Freq: Status: Active Protocol: Document 12/01/17 18:16 [facility] (Rec: 12/01/17 18:20 [facility] [email or web address]) Manual Therapy Treatment Soft Tissue Mobilization 3 Body Location external pelvic floor release Body Position Hooklying 1 Body Location left adductor release Body Position Supine PT-OP-R Modalities Start: 10/13/17 18:06 Freq: Status: Active Protocol: Document 11/10/17 13:45 [facility] (Rec: 11/11/17 09:26 [facility] [email or web address]) Ultrasound Therapy Treatment Left Patient Position Supine Coupling Medium Ultrasound Gel Frequency Setting (mHz) 1 Mode Setting Continuous Intensity Setting (w/cm2) 1.5 Comments left adductor proximal attachment PT-OP-T Assessment and Plan Start: 09/30/17 10:13 Freq: Status: Active Protocol: Document 12/01/17 18:16 [facility] (Rec: 12/01/17 18:20 [facility] [email or web address]) Physical Therapy Assessment Assessment Summary Assessment overall good progress, pain is pretty much gone but there is some residual tenderness at the pubic bone to palpation and left adductor residual guarding. Physical Therapy Plan Frequency and Duration Frequency of Treatment 2x/Week Duration of Treatment 8 weeks Plan of Care Start Date 10/13/17 Plan of Care End Date 12/24/17 Therapeutic Interventions Therapeutic Interventions Home Exercise Program Joint Mobilizations Manual Therapy Neuromuscular Re-education Patient/Caregiver Education Self-Care/Home Management Soft Tissue Mobilization Therapeutic Exercises Modalities Ultrasound Next Visit Focus/Plan Next Visit Plan adductor release next few visits prior to DC, emphasize home exercise program and stretching
--- NOTE | 2017-12-03 18:48 | PT.OTN ---
Current Diagnoses Strain of muscle, fascia and tendon at neck level, initial encounter (12/03/17) Sprain of ligaments of lumbar spine, initial encounter (12/03/17) Physical Therapy Treatment Note PT-OP-A Visit Information Start: 09/30/17 09:57 Freq: Status: Active Protocol: Document 12/03/17 15:15 [facility] (Rec: 12/03/17 18:47 [facility] [email or web address]) Out-Patient Physical Therapy Visit Information Visit Information Visit Type Treatment Note Visit Start Time 15:20 Visit Stop Time 16:05 Total Visit Minutes 45 Visit Number 8 Number of SKIVER UPPERS OR LININGS Visits 0 PT-OP-B Current Condition Start: 09/30/17 10:00 Freq: Status: Active Protocol: Document 09/30/17 10:00 [facility] (Rec: 09/30/17 10:13 [facility] [email or web address]) Current Condition History of Current Condition Onset Date 07/06/17 Current Complaints c/o sharp left sided pubic pain that occurs with sit- stand activities History of Current Condition Per patient report 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 She began having neck and back discomfort and she sought out care for these issues. The pubic bone pain came on slowly and was not addressed in PT or chiropractic. With PT, massage and pet care worker her neck and back pain have diminished however her pubic bone symptoms are worsening and now she notes her left side of the pubic bone region aches all the time when sitting and is a sharp pain when she goes to stand. She also notes pain in the left buttock region. Breanne initially thought she had a bladder infection because of the pain in the pubic region but tests for this are negative. Prior Treatments and Tests Xrays are negative for any fractures Treatment Goals Patient/Caregiver Goals Serge's goals include eliminating her pain in the left buttock and pubic bone and that she is able to sit and perform sit to stand activities without pain. Prior Functional Status Baseline Function- ADL's Independent Baseline Function- Mobility Independent Current Functional Impairments (Reported) Functional Limitations- Other pain with sitting and pain with sit-stand activities PT-OP-C Subjective Start: 09/30/17 10:00 Freq: Status: Active Protocol: Document 12/03/17 15:15 [facility] (Rec: 12/03/17 18:47 [facility] [email or web address]) OP-PT Subjective Patient Comments Patient Comments only complaints of adductor tightness but was sore following STM last visit PT-OP-J Posture/Palpation/Skin Start: 09/30/17 10:13 Freq: Status: Active Protocol: Document 09/30/17 10:14 [facility] (Rec: 09/30/17 10:48 [facility] [email or web address]) Posture Evaluation Position Standing Evaluation View Posterior Pelvis Posture (L) Iliac Crest Superior (R) PSIS Posterior (L) PSIS Inferior Weight Distribution Decreased Wt.Bear on (R) Comments Posture Comments Markay is standing with weight on the left leg, if she shifts all her weight to the right pain is reproduced. Palpation Assessment Location Four Palpation Location left gluteals and piriformis Palpation Findings Soft Tissue Tightness Muscle Guarding Tenderness Three Palpation Location left sacral AWILDA and Left PSIS, right sacral base Palpation Findings Tenderness Palpation Details with palption there is a visable left torsion of the sacrum with greatest tenderness at the left AWILDA , left PSIS, and right sacral base. The right sacral base is more prominent than the left Two Palpation Location left adductos Palpation Findings Soft Tissue Tightness Spasm Muscle Guarding Tenderness Palpation Details tenderness of the left adductor at the attachment to the pubic bone and along the muscle belly. There is guarding along the muscle. No pain with AROM left hip or passive stretching of the left adductors in supine One Palpation Location pubic bone left side Palpation Findings Tenderness PT-OP-K Range of Motion Start: 09/30/17 10:13 Freq: Status: Active Protocol: Document 09/30/17 10:14 [facility] (Rec: 09/30/17 10:48 [facility] [email or web address]) Lumbar Spine Range of Motion Lumbar Spine Active Comments lumbar spine ROM is WFL in standing PT-OP-L Special Tests Start: 09/30/17 10:13 Freq: Status: Active Protocol: Document 09/30/17 10:14 [facility] (Rec: 09/30/17 10:48 [facility] [email or web address]) Special Tests Other Special Tests Special Tests standing march test is + for the left standing hip IR/ER test is + for left iliac outflare prone press up test is + for sacral torsion PT-OP-Q Treatments Start: 09/30/17 10:13 Freq: Status: Active Protocol: Document 12/03/17 15:15 [facility] (Rec: 12/03/17 18:47 [facility] [email or web address]) Manual Therapy Treatment Soft Tissue Mobilization 1 Body Location left adductor release Body Position Supine Comments manual adductor stretching PT-OP-R Modalities Start: 10/13/17 18:06 Freq: Status: Active Protocol: Document 12/03/17 13:45 [facility] (Rec: 12/03/17 18:48 [facility] [email or web address]) Ultrasound Therapy Treatment Left Patient Position Supine Coupling Medium Ultrasound Gel Frequency Setting (mHz) 1 Mode Setting Continuous Intensity Setting (w/cm2) 1.5 Comments left adductor proximal attachment PT-OP-T Assessment and Plan Start: 09/30/17 10:13 Freq: Status: Active Protocol: Document 12/03/17 15:15 [facility] (Rec: 12/03/17 18:47 [facility] [email or web address]) Physical Therapy Assessment Progress Towards Goals Progress Towards Goals Progressing Toward Goals Assessment Summary Assessment overall good progress, pain is pretty much gone but there is some residual tenderness at the pubic bone to palpation and left adductor residual guarding. Physical Therapy Plan Frequency and Duration Frequency of Treatment 2x/Week Duration of Treatment 8 weeks Plan of Care Start Date 10/13/17 Plan of Care End Date 12/24/17 Therapeutic Interventions Therapeutic Interventions Home Exercise Program Joint Mobilizations Manual Therapy Neuromuscular Re-education Patient/Caregiver Education Self-Care/Home Management Soft Tissue Mobilization Therapeutic Exercises Modalities Ultrasound Next Visit Focus/Plan Next Visit Plan adductor release next few visits prior to DC, emphasize home exercise program and stretching
--- NOTE | 2017-12-08 15:42 | PT.OTN ---
Current Diagnoses Strain of muscle, fascia and tendon at neck level, initial encounter (12/08/17) Sprain of ligaments of lumbar spine, initial encounter (12/08/17) Physical Therapy Treatment Note PT-OP-A Visit Information Start: 09/30/17 09:57 Freq: Status: Active Protocol: Document 12/08/17 15:35 [facility] (Rec: 12/08/17 15:42 [facility] [email or web address]) Out-Patient Physical Therapy Visit Information Visit Information Visit Type Treatment Note Visit Start Time 09:45 Visit Stop Time 10:30 Total Visit Minutes 45 Visit Number 9 Number of MINING TECHNICIAN Visits 0 PT-OP-B Current Condition Start: 09/30/17 10:00 Freq: Status: Active Protocol: Document 09/30/17 10:00 [facility] (Rec: 09/30/17 10:13 [facility] [email or web address]) Current Condition History of Current Condition Onset Date 07/06/17 Current Complaints c/o sharp left sided pubic pain that occurs with sit- stand activities History of Current Condition Per patient report 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 She began having neck and back discomfort and she sought out care for these issues. The pubic bone pain came on slowly and was not addressed in PT or chiropractic. With PT, massage and behavioral health care manager her neck and back pain have diminished however her pubic bone symptoms are worsening and now she notes her left side of the pubic bone region aches all the time when sitting and is a sharp pain when she goes to stand. She also notes pain in the left buttock region. Breanne initially thought she had a bladder infection because of the pain in the pubic region but tests for this are negative. Prior Treatments and Tests Xrays are negative for any fractures Treatment Goals Patient/Caregiver Goals Serge's goals include eliminating her pain in the left buttock and pubic bone and that she is able to sit and perform sit to stand activities without pain. Prior Functional Status Baseline Function- ADL's Independent Baseline Function- Mobility Independent Current Functional Impairments (Reported) Functional Limitations- Other pain with sitting and pain with sit-stand activities PT-OP-C Subjective Start: 09/30/17 10:00 Freq: Status: Active Protocol: Document 12/08/17 15:35 [facility] (Rec: 12/08/17 15:42 [facility] [email or web address]) OP-PT Subjective Patient Comments Patient Comments Breanne notes that she is very sore in both her adductor today as well as achey in her pelvic floor. She reports feeling like she took a step backward. PT-OP-J Posture/Palpation/Skin Start: 09/30/17 10:13 Freq: Status: Active Protocol: Document 09/30/17 10:14 [facility] (Rec: 09/30/17 10:48 [facility] [email or web address]) Posture Evaluation Position Standing Evaluation View Posterior Pelvis Posture (L) Iliac Crest Superior (R) PSIS Posterior (L) PSIS Inferior Weight Distribution Decreased Wt.Bear on (R) Comments Posture Comments Breanne is standing with weight on the left leg, if she shifts all her weight to the right pain is reproduced. Palpation Assessment Location Four Palpation Location left gluteals and piriformis Palpation Findings Soft Tissue Tightness Muscle Guarding Tenderness Three Palpation Location left sacral AWILDA and Left PSIS, right sacral base Palpation Findings Tenderness Palpation Details with palption there is a visable left torsion of the sacrum with greatest tenderness at the left AWILDA , left PSIS, and right sacral base. The right sacral base is more prominent than the left Two Palpation Location left adductos Palpation Findings Soft Tissue Tightness Spasm Muscle Guarding Tenderness Palpation Details tenderness of the left adductor at the attachment to the pubic bone and along the muscle belly. There is guarding along the muscle. No pain with AROM left hip or passive stretching of the left adductors in supine One Palpation Location pubic bone left side Palpation Findings Tenderness PT-OP-K Range of Motion Start: 09/30/17 10:13 Freq: Status: Active Protocol: Document 09/30/17 10:14 [facility] (Rec: 09/30/17 10:48 [facility] [email or web address]) Lumbar Spine Range of Motion Lumbar Spine Active Comments lumbar spine ROM is WFL in standing PT-OP-L Special Tests Start: 09/30/17 10:13 Freq: Status: Active Protocol: Document 09/30/17 10:14 [facility] (Rec: 09/30/17 10:48 [facility] [email or web address]) Special Tests Other Special Tests Special Tests standing march test is + for the left standing hip IR/ER test is + for left iliac outflare prone press up test is + for sacral torsion PT-OP-Q Treatments Start: 09/30/17 10:13 Freq: Status: Active Protocol: Document 12/08/17 15:35 [facility] (Rec: 12/08/17 15:42 [facility] [email or web address]) Therapeutic Exercises Supine Exercises 6 Supine Exercise Name happy baby Reps/Minutes hold 1-2 min Manual Therapy Treatment Soft Tissue Mobilization 3 Body Location external pelvic floor release Body Position Hooklying 2 Body Location left obturator internus Mobilization Type Myofascial Release Intensity/Depth Moderate Body Position Supine Comments prone, supine and sidelying PT-OP-R Modalities Start: 10/13/17 18:06 Freq: Status: Active Protocol: Document 12/08/17 15:35 [facility] (Rec: 12/08/17 15:42 [facility] [email or web address]) Ultrasound Therapy Treatment left external medial border ischial tuberoisty Treatment Duration (minutes) 8 Patient Position Supine Coupling Medium Ultrasound Gel Applicator Size (cm2) 5 Frequency Setting (mHz) 1 Mode Setting Continuous Duty Cycle 100% Intensity Setting (w/cm2) 1.5 PT-OP-T Assessment and Plan Start: 09/30/17 10:13 Freq: Status: Active Protocol: Document 12/08/17 15:35 [facility] (Rec: 12/08/17 15:42 [facility] [email or web address]) Physical Therapy Assessment Assessment Summary Assessment I advised Ronda to go back to using her SI belt. Alignment was good today but unlocking still occurs with ASLR. We reviewed her stabilization exercises, happy baby for relaxation of the pelvic floor as she is tight here and sore. Physical Therapy Plan Frequency and Duration Frequency of Treatment 2x/Week Duration of Treatment 8 weeks Plan of Care Start Date 10/13/17 Plan of Care End Date 12/24/17 Therapeutic Interventions Therapeutic Interventions Home Exercise Program Joint Mobilizations Manual Therapy Neuromuscular Re-education Patient/Caregiver Education Self-Care/Home Management Soft Tissue Mobilization Therapeutic Exercises Modalities Ultrasound Next Visit Focus/Plan Next Note Type Treatment Note Next Visit Plan adductor release next few visits prior to DC, emphasize home exercise program and stretching
--- NOTE | 2017-12-16 11:23 | PT.OTN ---
Current Diagnoses Strain of muscle, fascia and tendon at neck level, initial encounter (12/15/17) Sprain of ligaments of lumbar spine, initial encounter (12/15/17) Physical Therapy Treatment Note PT-OP-A Visit Information Start: 09/30/17 09:57 Freq: Status: Active Protocol: Document 12/15/17 14:30 [facility] (Rec: 12/16/17 11:23 [facility] [email or web address]) Out-Patient Physical Therapy Visit Information Visit Information Visit Type Treatment Note Visit Start Time 14:30 Visit Stop Time 15:15 Total Visit Minutes 45 Visit Number 10 Number of CLEAT MAKER Visits 0 PT-OP-B Current Condition Start: 09/30/17 10:00 Freq: Status: Active Protocol: Document 09/30/17 10:00 [facility] (Rec: 09/30/17 10:13 [facility] [email or web address]) Current Condition History of Current Condition Onset Date 07/06/17 Current Complaints c/o sharp left sided pubic pain that occurs with sit- stand activities History of Current Condition Per patient report 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 She began having neck and back discomfort and she sought out care for these issues. The pubic bone pain came on slowly and was not addressed in PT or chiropractic. With PT, massage and personal carer her neck and back pain have diminished however her pubic bone symptoms are worsening and now she notes her left side of the pubic bone region aches all the time when sitting and is a sharp pain when she goes to stand. She also notes pain in the left buttock region. Breanne initially thought she had a bladder infection because of the pain in the pubic region but tests for this are negative. Prior Treatments and Tests Xrays are negative for any fractures Treatment Goals Patient/Caregiver Goals Serge's goals include eliminating her pain in the left buttock and pubic bone and that she is able to sit and perform sit to stand activities without pain. Prior Functional Status Baseline Function- ADL's Independent Baseline Function- Mobility Independent Current Functional Impairments (Reported) Functional Limitations- Other pain with sitting and pain with sit-stand activities PT-OP-C Subjective Start: 09/30/17 10:00 Freq: Status: Active Protocol: Document 12/15/17 14:30 [facility] (Rec: 12/16/17 11:23 [facility] [email or web address]) OP-PT Subjective Patient Comments Patient Comments no complaints of sharp pain at the pubic bone but c/o acheyness in the pelvic floor that was present with her all week on the boat trip PT-OP-J Posture/Palpation/Skin Start: 09/30/17 10:13 Freq: Status: Active Protocol: Document 09/30/17 10:14 [facility] (Rec: 09/30/17 10:48 [facility] [email or web address]) Posture Evaluation Position Standing Evaluation View Posterior Pelvis Posture (L) Iliac Crest Superior (R) PSIS Posterior (L) PSIS Inferior Weight Distribution Decreased Wt.Bear on (R) Comments Posture Comments Markay is standing with weight on the left leg, if she shifts all her weight to the right pain is reproduced. Palpation Assessment Location Four Palpation Location left gluteals and piriformis Palpation Findings Soft Tissue Tightness Muscle Guarding Tenderness Three Palpation Location left sacral AWILDA and Left PSIS, right sacral base Palpation Findings Tenderness Palpation Details with palption there is a visable left torsion of the sacrum with greatest tenderness at the left AWILDA , left PSIS, and right sacral base. The right sacral base is more prominent than the left Two Palpation Location left adductos Palpation Findings Soft Tissue Tightness Spasm Muscle Guarding Tenderness Palpation Details tenderness of the left adductor at the attachment to the pubic bone and along the muscle belly. There is guarding along the muscle. No pain with AROM left hip or passive stretching of the left adductors in supine One Palpation Location pubic bone left side Palpation Findings Tenderness PT-OP-K Range of Motion Start: 09/30/17 10:13 Freq: Status: Active Protocol: Document 09/30/17 10:14 [facility] (Rec: 09/30/17 10:48 [facility] [email or web address]) Lumbar Spine Range of Motion Lumbar Spine Active Comments lumbar spine ROM is WFL in standing PT-OP-L Special Tests Start: 09/30/17 10:13 Freq: Status: Active Protocol: Document 09/30/17 10:14 [facility] (Rec: 09/30/17 10:48 [facility] [email or web address]) Special Tests Other Special Tests Special Tests standing march test is + for the left standing hip IR/ER test is + for left iliac outflare prone press up test is + for sacral torsion PT-OP-Q Treatments Start: 09/30/17 10:13 Freq: Status: Active Protocol: Document 12/15/17 14:30 [facility] (Rec: 12/16/17 11:23 [facility] [email or web address]) Therapeutic Exercises Supine Exercises 6 Supine Exercise Name happy baby Reps/Minutes hold 1-2 min 3 Supine Exercise Name TA stabilization with marches Reps/Minutes 10-20 2 Supine Exercise Name piriformis stretch Reps/Minutes 1-2 reps each side holding 1-2 minutes each 1 Supine Exercise Name alannah pose with pelvic floor relaxation Manual Therapy Treatment Soft Tissue Mobilization 3 Body Location posterior gluteal realease Body Position Sidelying 2 Body Location left obturator internus Mobilization Type Myofascial Release Intensity/Depth Moderate Body Position Supine Comments prone, supine and sidelying PT-OP-R Modalities Start: 10/13/17 18:06 Freq: Status: Active Protocol: Document 12/08/17 15:35 [facility] (Rec: 12/08/17 15:42 [facility] [email or web address]) Ultrasound Therapy Treatment left external medial border ischial tuberoisty Treatment Duration (minutes) 8 Patient Position Supine Coupling Medium Ultrasound Gel Applicator Size (cm2) 5 Frequency Setting (mHz) 1 Mode Setting Continuous Duty Cycle 100% Intensity Setting (w/cm2) 1.5 PT-OP-T Assessment and Plan Start: 09/30/17 10:13 Freq: Status: Active Protocol: Document 12/15/17 14:30 [facility] (Rec: 12/16/17 11:23 [facility] [email or web address]) Physical Therapy Assessment Assessment Summary Assessment improving TA stability with marches and ASLR test was improved today as well. Physical Therapy Plan Frequency and Duration Frequency of Treatment 2x/Week Duration of Treatment 8 weeks Plan of Care Start Date 10/13/17 Plan of Care End Date 12/24/17 Therapeutic Interventions Therapeutic Interventions Home Exercise Program Joint Mobilizations Manual Therapy Neuromuscular Re-education Patient/Caregiver Education Self-Care/Home Management Soft Tissue Mobilization Therapeutic Exercises Modalities Ultrasound Next Visit Focus/Plan Next Note Type Treatment Note Next Visit Plan Breanne will work on her stretches for a week and then check back in next week. She will go back to wearing her SI belt
--- NOTE | 2017-12-17 16:47 | PT.OTRE ---
Current Diagnoses Strain of muscle, fascia and tendon at neck level, initial encounter (12/17/17) Sprain of ligaments of lumbar spine, initial encounter (12/17/17) Provider Visit Care Team Role Provider Type Mee Licona MD Attending Provider Physician Primary Care Provider Specialty: Physical Medicine and Rehab Address: [address] [place] [address], [id number] Email: Physical Therapy Re-Evaluation PT-OP-A Visit Information Start: 09/30/17 09:57 Freq: Status: Active Protocol: Document 12/17/17 16:35 [facility] (Rec: 12/17/17 16:42 [facility] [email or web address]) Out-Patient Physical Therapy Visit Information Visit Information Visit Type Treatment Note Visit Start Time 09:45 Visit Stop Time 10:30 Total Visit Minutes 45 Visit Number 11 Number of KINESIOTHERAPIST Visits 0 PT-OP-B Current Condition Start: 09/30/17 10:00 Freq: Status: Active Protocol: Document 09/30/17 10:00 [facility] (Rec: 09/30/17 10:13 [facility] [email or web address]) Current Condition History of Current Condition Onset Date 07/06/17 Current Complaints c/o sharp left sided pubic pain that occurs with sit- stand activities History of Current Condition Per patient report 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 She began having neck and back discomfort and she sought out care for these issues. The pubic bone pain came on slowly and was not addressed in PT or chiropractic. With PT, massage and progressive care nurse her neck and back pain have diminished however her pubic bone symptoms are worsening and now she notes her left side of the pubic bone region aches all the time when sitting and is a sharp pain when she goes to stand. She also notes pain in the left buttock region. Breanne initially thought she had a bladder infection because of the pain in the pubic region but tests for this are negative. Prior Treatments and Tests Xrays are negative for any fractures Treatment Goals Patient/Caregiver Goals Serge's goals include eliminating her pain in the left buttock and pubic bone and that she is able to sit and perform sit to stand activities without pain. Prior Functional Status Baseline Function- ADL's Independent Baseline Function- Mobility Independent Current Functional Impairments (Reported) Functional Limitations- Other pain with sitting and pain with sit-stand activities PT-OP-C Subjective Start: 09/30/17 10:00 Freq: Status: Active Protocol: Document 12/17/17 16:35 [facility] (Rec: 12/17/17 16:42 [facility] [email or web address]) OP-PT Subjective Patient Comments Patient Comments Breanne reports she is doing better but still feeling the pelvic floor achyness. She denies the sharp pain in the pubic bone region. Her stretches are better overall now. PT-OP-J Posture/Palpation/Skin Start: 09/30/17 10:13 Freq: Status: Active Protocol: Document 09/30/17 10:14 [facility] (Rec: 09/30/17 10:48 [facility] [email or web address]) Posture Evaluation Position Standing Evaluation View Posterior Pelvis Posture (L) Iliac Crest Superior (R) PSIS Posterior (L) PSIS Inferior Weight Distribution Decreased Wt.Bear on (R) Comments Posture Comments Breanne is standing with weight on the left leg, if she shifts all her weight to the right pain is reproduced. Palpation Assessment Location Four Palpation Location left gluteals and piriformis Palpation Findings Soft Tissue Tightness Muscle Guarding Tenderness Three Palpation Location left sacral AWILDA and Left PSIS, right sacral base Palpation Findings Tenderness Palpation Details with palption there is a visable left torsion of the sacrum with greatest tenderness at the left AWILDA , left PSIS, and right sacral base. The right sacral base is more prominent than the left Two Palpation Location left adductos Palpation Findings Soft Tissue Tightness Spasm Muscle Guarding Tenderness Palpation Details tenderness of the left adductor at the attachment to the pubic bone and along the muscle belly. There is guarding along the muscle. No pain with AROM left hip or passive stretching of the left adductors in supine One Palpation Location pubic bone left side Palpation Findings Tenderness PT-OP-K Range of Motion Start: 09/30/17 10:13 Freq: Status: Active Protocol: Document 09/30/17 10:14 [facility] (Rec: 09/30/17 10:48 [facility] [email or web address]) Lumbar Spine Range of Motion Lumbar Spine Active Comments lumbar spine ROM is WFL in standing PT-OP-L Special Tests Start: 09/30/17 10:13 Freq: Status: Active Protocol: Document 12/17/17 16:42 [facility] (Rec: 12/17/17 16:46 [facility] [email or web address]) Special Tests Other Special Tests Special Tests standing march test is negative standing hip IR/ER test is negative prone press up is negative PT-OP-Q Treatments Start: 09/30/17 10:13 Freq: Status: Active Protocol: Document 12/17/17 16:35 [facility] (Rec: 12/17/17 16:42 [facility] [email or web address]) Manual Therapy Treatment Soft Tissue Mobilization 3 Body Location posterior gluteal realease Body Position Sidelying 2 Body Location left obturator internus Mobilization Type Myofascial Release Intensity/Depth Moderate Body Position Supine Comments prone, supine and sidelying 1 Body Location left adductor release Body Position Supine Comments manual adductor stretching PT-OP-R Modalities Start: 10/13/17 18:06 Freq: Status: Active Protocol: Document 12/08/17 15:35 [facility] (Rec: 12/08/17 15:42 [facility] [email or web address]) Ultrasound Therapy Treatment left external medial border ischial tuberoisty Treatment Duration (minutes) 8 Patient Position Supine Coupling Medium Ultrasound Gel Applicator Size (cm2) 5 Frequency Setting (mHz) 1 Mode Setting Continuous Duty Cycle 100% Intensity Setting (w/cm2) 1.5 PT-OP-T Assessment and Plan Start: 09/30/17 10:13 Freq: Status: Active Protocol: Document 12/17/17 16:35 [facility] (Rec: 12/17/17 16:42 [facility] [email or web address]) Physical Therapy Assessment Progress Towards Goals Progress Towards Goals Progressing Toward Goals Progress Comments sharp pubic pain is no longer present. Breanne does c/o pelvic floor tightness, acheyness. We have been addressing this with MFR and pelvic floor stretches. Assessment Summary Assessment Breanne has made good overall progress with physical therapy . Her sharp pain in the pubic bone is no longer a issue for her but she is left with residual acheyness in the pelvic floor musculature. Her force closure of the SI joint has improved. At this point Dano will work independently over the next few weeks and see how she does. My plan is to discharge her to a independent home program if she continues to progress on her own. Physical Therapy Plan Frequency and Duration Frequency of Treatment 2x/Week Duration of Treatment 8 weeks Plan of Care Start Date 10/13/17 Plan of Care End Date 12/24/17 Therapeutic Interventions Therapeutic Interventions Home Exercise Program Joint Mobilizations Manual Therapy Neuromuscular Re-education Patient/Caregiver Education Self-Care/Home Management Soft Tissue Mobilization Therapeutic Exercises Modalities Ultrasound Next Visit Focus/Plan Next Visit Plan hold PT at this time as pt works on her own over the next few weeks. Reschedule only if needed.
--- NOTE | 2017-12-24 12:47 | PT.OTN ---
Current Diagnoses Strain of muscle, fascia and tendon at neck level, initial encounter (12/24/17) Sprain of ligaments of lumbar spine, initial encounter (12/24/17) Physical Therapy Treatment Note PT-OP-A Visit Information Start: 09/30/17 09:57 Freq: Status: Active Protocol: Document 12/24/17 12:35 [facility] (Rec: 12/24/17 12:47 [facility] [email or web address]) Out-Patient Physical Therapy Visit Information Visit Information Visit Type Treatment Note Visit Start Time 09:45 Visit Stop Time 10:30 Total Visit Minutes 45 Visit Number 12 Number of BLOCKER POLISHING Visits 0 PT-OP-B Current Condition Start: 09/30/17 10:00 Freq: Status: Active Protocol: Document 09/30/17 10:00 [facility] (Rec: 09/30/17 10:13 [facility] [email or web address]) Current Condition History of Current Condition Onset Date 07/06/17 Current Complaints c/o sharp left sided pubic pain that occurs with sit- stand activities History of Current Condition Per patient report 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 She began having neck and back discomfort and she sought out care for these issues. The pubic bone pain came on slowly and was not addressed in PT or chiropractic. With PT, massage and healthcare or medical her neck and back pain have diminished however her pubic bone symptoms are worsening and now she notes her left side of the pubic bone region aches all the time when sitting and is a sharp pain when she goes to stand. She also notes pain in the left buttock region. Breanne initially thought she had a bladder infection because of the pain in the pubic region but tests for this are negative. Prior Treatments and Tests Xrays are negative for any fractures Treatment Goals Patient/Caregiver Goals Serge's goals include eliminating her pain in the left buttock and pubic bone and that she is able to sit and perform sit to stand activities without pain. Prior Functional Status Baseline Function- ADL's Independent Baseline Function- Mobility Independent Current Functional Impairments (Reported) Functional Limitations- Other pain with sitting and pain with sit-stand activities PT-OP-C Subjective Start: 09/30/17 10:00 Freq: Status: Active Protocol: Document 12/24/17 12:35 [facility] (Rec: 12/24/17 12:47 [facility] [email or web address]) OP-PT Subjective Patient Comments Patient Comments Breanne reports she has had the sharp pain again the past few days in the pubic bone with sit-stand activities. She has had her grandchildren this past month and she is wondering if the extra activity may have aggravated her symptoms. PT-OP-J Posture/Palpation/Skin Start: 09/30/17 10:13 Freq: Status: Active Protocol: Document 09/30/17 10:14 [facility] (Rec: 09/30/17 10:48 [facility] [email or web address]) Posture Evaluation Position Standing Evaluation View Posterior Pelvis Posture (L) Iliac Crest Superior (R) PSIS Posterior (L) PSIS Inferior Weight Distribution Decreased Wt.Bear on (R) Comments Posture Comments Breanne is standing with weight on the left leg, if she shifts all her weight to the right pain is reproduced. Palpation Assessment Location Four Palpation Location left gluteals and piriformis Palpation Findings Soft Tissue Tightness Muscle Guarding Tenderness Three Palpation Location left sacral AWILDA and Left PSIS, right sacral base Palpation Findings Tenderness Palpation Details with palption there is a visable left torsion of the sacrum with greatest tenderness at the left AWILDA , left PSIS, and right sacral base. The right sacral base is more prominent than the left Two Palpation Location left adductos Palpation Findings Soft Tissue Tightness Spasm Muscle Guarding Tenderness Palpation Details tenderness of the left adductor at the attachment to the pubic bone and along the muscle belly. There is guarding along the muscle. No pain with AROM left hip or passive stretching of the left adductors in supine One Palpation Location pubic bone left side Palpation Findings Tenderness PT-OP-K Range of Motion Start: 09/30/17 10:13 Freq: Status: Active Protocol: Document 09/30/17 10:14 [facility] (Rec: 09/30/17 10:48 [facility] [email or web address]) Lumbar Spine Range of Motion Lumbar Spine Active Comments lumbar spine ROM is WFL in standing PT-OP-L Special Tests Start: 09/30/17 10:13 Freq: Status: Active Protocol: Document 12/17/17 16:42 [facility] (Rec: 12/17/17 16:46 [facility] [email or web address]) Special Tests Other Special Tests Special Tests standing march test is negative standing hip IR/ER test is negative prone press up is negative PT-OP-Q Treatments Start: 09/30/17 10:13 Freq: Status: Active Protocol: Document 12/24/17 12:35 [facility] (Rec: 12/24/17 12:47 [facility] [email or web address]) Manual Therapy Treatment Soft Tissue Mobilization 3 Body Location posterior gluteal realease Body Position Sidelying 2 Body Location left obturator internus Mobilization Type Myofascial Release Intensity/Depth Moderate Body Position Supine Comments prone, supine and sidelying Joint Mobilizations 2 Joint right pubic upslip MET Body Position Supine Self-Care/Home Management Treatment Education Patient Education Home Exercise Program Joint Protection PT-OP-R Modalities Start: 10/13/17 18:06 Freq: Status: Active Protocol: Document 12/08/17 15:35 [facility] (Rec: 12/08/17 15:42 [facility] [email or web address]) Ultrasound Therapy Treatment left external medial border ischial tuberoisty Treatment Duration (minutes) 8 Patient Position Supine Coupling Medium Ultrasound Gel Applicator Size (cm2) 5 Frequency Setting (mHz) 1 Mode Setting Continuous Duty Cycle 100% Intensity Setting (w/cm2) 1.5 PT-OP-T Assessment and Plan Start: 09/30/17 10:13 Freq: Status: Active Protocol: Document 12/24/17 12:35 [facility] (Rec: 12/24/17 12:47 [facility] [email or web address]) Physical Therapy Assessment Assessment Summary Assessment Breanne presented with a pubic upshift again today. She did correct with manual therapy techniques. I encouraged continued work on TA stabilization for home as well as stretches for the pelvic floor. Breanne was also given a dilator today to self stretch her pelvic floor. I also encouraged her to wear her SI belt Physical Therapy Plan Frequency and Duration Frequency of Treatment 2x/Week Duration of Treatment 8 weeks Plan of Care Start Date 10/13/17 Plan of Care End Date 12/24/17 Therapeutic Interventions Therapeutic Interventions Home Exercise Program Joint Mobilizations Manual Therapy Neuromuscular Re-education Patient/Caregiver Education Self-Care/Home Management Soft Tissue Mobilization Therapeutic Exercises Modalities Ultrasound Next Visit Focus/Plan Next Visit Plan continue treating Breanne as needed
--- NOTE | 2017-12-29 17:52 | PT.OTN ---
Current Diagnoses Strain of muscle, fascia and tendon at neck level, initial encounter (12/29/17) Sprain of ligaments of lumbar spine, initial encounter (12/29/17) Physical Therapy Treatment Note PT-OP-A Visit Information Start: 09/30/17 09:57 Freq: Status: Active Protocol: Document 12/24/17 12:35 [facility] (Rec: 12/24/17 12:47 [facility] [email or web address]) Out-Patient Physical Therapy Visit Information Visit Information Visit Type Treatment Note Visit Start Time 09:45 Visit Stop Time 10:30 Total Visit Minutes 45 Visit Number 12 Number of SILVER BRAZER Visits 0 PT-OP-B Current Condition Start: 09/30/17 10:00 Freq: Status: Active Protocol: Document 09/30/17 10:00 [facility] (Rec: 09/30/17 10:13 [facility] [email or web address]) Current Condition History of Current Condition Onset Date 07/06/17 Current Complaints c/o sharp left sided pubic pain that occurs with sit- stand activities History of Current Condition Per patient report 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 She began having neck and back discomfort and she sought out care for these issues. The pubic bone pain came on slowly and was not addressed in PT or chiropractic. With PT, massage and manager career her neck and back pain have diminished however her pubic bone symptoms are worsening and now she notes her left side of the pubic bone region aches all the time when sitting and is a sharp pain when she goes to stand. She also notes pain in the left buttock region. Breanne initially thought she had a bladder infection because of the pain in the pubic region but tests for this are negative. Prior Treatments and Tests Xrays are negative for any fractures Treatment Goals Patient/Caregiver Goals Serge's goals include eliminating her pain in the left buttock and pubic bone and that she is able to sit and perform sit to stand activities without pain. Prior Functional Status Baseline Function- ADL's Independent Baseline Function- Mobility Independent Current Functional Impairments (Reported) Functional Limitations- Other pain with sitting and pain with sit-stand activities PT-OP-C Subjective Start: 09/30/17 10:00 Freq: Status: Active Protocol: Document 12/29/17 17:35 [facility] (Rec: 12/29/17 17:52 [facility] [email or web address]) OP-PT Subjective Patient Comments Patient Comments Breanne states she tried to go without her SI belt on thursday and gardened and her pubic bone pain increased. She does feel that manual release of the pelvic floor may have helped her when she used the dilator, she also notes it was the right side of her pelvic floor that was tight PT-OP-J Posture/Palpation/Skin Start: 09/30/17 10:13 Freq: Status: Active Protocol: Document 09/30/17 10:14 [facility] (Rec: 09/30/17 10:48 [facility] [email or web address]) Posture Evaluation Position Standing Evaluation View Posterior Pelvis Posture (L) Iliac Crest Superior (R) PSIS Posterior (L) PSIS Inferior Weight Distribution Decreased Wt.Bear on (R) Comments Posture Comments Breanne is standing with weight on the left leg, if she shifts all her weight to the right pain is reproduced. Palpation Assessment Location Four Palpation Location left gluteals and piriformis Palpation Findings Soft Tissue Tightness Muscle Guarding Tenderness Three Palpation Location left sacral AWILDA and Left PSIS, right sacral base Palpation Findings Tenderness Palpation Details with palption there is a visable left torsion of the sacrum with greatest tenderness at the left AWILDA , left PSIS, and right sacral base. The right sacral base is more prominent than the left Two Palpation Location left adductos Palpation Findings Soft Tissue Tightness Spasm Muscle Guarding Tenderness Palpation Details tenderness of the left adductor at the attachment to the pubic bone and along the muscle belly. There is guarding along the muscle. No pain with AROM left hip or passive stretching of the left adductors in supine One Palpation Location pubic bone left side Palpation Findings Tenderness PT-OP-K Range of Motion Start: 09/30/17 10:13 Freq: Status: Active Protocol: Document 09/30/17 10:14 [facility] (Rec: 09/30/17 10:48 [facility] [email or web address]) Lumbar Spine Range of Motion Lumbar Spine Active Comments lumbar spine ROM is WFL in standing PT-OP-L Special Tests Start: 09/30/17 10:13 Freq: Status: Active Protocol: Document 12/17/17 16:42 [facility] (Rec: 12/17/17 16:46 [facility] [email or web address]) Special Tests Other Special Tests Special Tests standing march test is negative standing hip IR/ER test is negative prone press up is negative PT-OP-Q Treatments Start: 09/30/17 10:13 Freq: Status: Active Protocol: Document 12/29/17 17:35 [facility] (Rec: 12/29/17 17:52 [facility] [email or web address]) Manual Therapy Treatment Soft Tissue Mobilization 4 Body Location pelvic diaphragm MFR technique 3 Body Location posterior gluteal release Body Position Prone Joint Mobilizations 3 Joint sacral mobilizations into counter nutation PT-OP-R Modalities Start: 10/13/17 18:06 Freq: Status: Active Protocol: Document 12/08/17 15:35 [facility] (Rec: 12/08/17 15:42 [facility] [email or web address]) Ultrasound Therapy Treatment left external medial border ischial tuberoisty Treatment Duration (minutes) 8 Patient Position Supine Coupling Medium Ultrasound Gel Applicator Size (cm2) 5 Frequency Setting (mHz) 1 Mode Setting Continuous Duty Cycle 100% Intensity Setting (w/cm2) 1.5 PT-OP-T Assessment and Plan Start: 09/30/17 10:13 Freq: Status: Active Protocol: Document 12/29/17 17:35 [facility] (Rec: 12/29/17 17:52 [facility] [email or web address]) Physical Therapy Assessment Assessment Summary Assessment head still operator at the left SI joint and sacrospinous ligament. Breanne may benefit from prolotherapy for improved stabilization of the SI joint Physical Therapy Plan Frequency and Duration Frequency of Treatment 2x/Week Duration of Treatment 8 weeks Plan of Care Start Date 10/13/17 Plan of Care End Date 12/24/17 Next Visit Focus/Plan Next Visit Plan continue treating Breanne as needed
--- NOTE | 2018-03-09 17:27 | PT.OTRE ---
Current Diagnoses Strain of muscle, fascia and tendon at neck level, initial encounter (03/04/18) Sprain of ligaments of lumbar spine, initial encounter (03/04/18) Provider Visit Care Team Role Provider Type Mee Licona MD Attending Provider Physician Primary Care Provider Specialty: Physical Medicine and Rehab Address: [address] [place] [address], [id number] Email: Physical Therapy Re-Evaluation PT-OP-A Visit Information Start: 09/30/17 09:57 Freq: Status: Active Protocol: Document 03/04/18 15:15 [facility] (Rec: 03/09/18 14:29 [facility] [email or web address]) Out-Patient Physical Therapy Visit Information Visit Information Visit Type Re-Evaluation Visit Start Time 15:15 Visit Stop Time 16:00 Total Visit Minutes 45 Visit Number 13 Number of SSIS ARCHITECT Visits 0 Evaluation Information Evaluation Date 09/29/17 PT-OP-B Current Condition Start: 09/30/17 10:00 Freq: Status: Active Protocol: Document 09/30/17 10:00 [facility] (Rec: 09/30/17 10:13 [facility] [email or web address]) Current Condition History of Current Condition Onset Date 07/06/17 Current Complaints c/o sharp left sided pubic pain that occurs with sit- stand activities History of Current Condition Per patient report 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 She began having neck and back discomfort and she sought out care for these issues. The pubic bone pain came on slowly and was not addressed in PT or chiropractic. 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 She also notes pain in the left buttock region. Breanne initially thought she had a bladder infection because of the pain in the pubic region but tests for this are negative. Prior Treatments and Tests Xrays are negative for any fractures Treatment Goals Patient/Caregiver Goals Serge's goals include eliminating her pain in the left buttock and pubic bone and that she is able to sit and perform sit to stand activities without pain. Prior Functional Status Baseline Function- ADL's Independent Baseline Function- Mobility Independent Current Functional Impairments (Reported) Functional Limitations- Other pain with sitting and pain with sit-stand activities PT-OP-C Subjective Start: 09/30/17 10:00 Freq: Status: Active Protocol: Document 03/04/18 15:15 [facility] (Rec: 03/09/18 14:29 [facility] [email or web address]) OP-PT Subjective Patient Comments Patient Comments Breanne reports that symptoms have worsened and that now when she stands up and turns to the right she expereinces sharp pubic pain symptoms. Sit to stand is still often pain ful as well PT-OP-J Posture/Palpation/Skin Start: 09/30/17 10:13 Freq: Status: Active Protocol: Document 03/04/18 15:15 [facility] (Rec: 03/09/18 14:29 [facility] [email or web address]) Palpation Assessment Location Two Palpation Location left adductos Palpation Findings Soft Tissue Tightness Spasm Muscle Guarding Tenderness Palpation Details tenderness of the left adductor at the attachment to the pubic bone and along the muscle belly. There is guarding along the muscle. No pain with AROM left hip or passive stretching of the left adductors in supine One Palpation Location pubic bone left side Palpation Findings Tenderness PT-OP-K Range of Motion Start: 09/30/17 10:13 Freq: Status: Active Protocol: Document 09/30/17 10:14 [facility] (Rec: 09/30/17 10:48 [facility] [email or web address]) Lumbar Spine Range of Motion Lumbar Spine Active Comments lumbar spine ROM is WFL in standing PT-OP-L Special Tests Start: 09/30/17 10:13 Freq: Status: Active Protocol: Document 03/09/18 14:29 [facility] (Rec: 03/09/18 14:30 [facility] [email or web address]) Special Tests Other Special Tests Special Tests + ASLR left for the left side, left pubic upslip, left out flare PT-OP-Q Treatments Start: 09/30/17 10:13 Freq: Status: Active Protocol: Document 12/29/17 17:35 [facility] (Rec: 12/29/17 17:52 [facility] [email or web address]) Manual Therapy Treatment Soft Tissue Mobilization 4 Body Location pelvic diaphragm MFR technique 3 Body Location posterior gluteal release Body Position Prone Joint Mobilizations 3 Joint sacral mobilizations into counter nutation PT-OP-R Modalities Start: 10/13/17 18:06 Freq: Status: Active Protocol: Document 12/08/17 15:35 [facility] (Rec: 12/08/17 15:42 [facility] [email or web address]) Ultrasound Therapy Treatment left external medial border ischial tuberoisty Treatment Duration (minutes) 8 Patient Position Supine Coupling Medium Ultrasound Gel Applicator Size (cm2) 5 Frequency Setting (mHz) 1 Mode Setting Continuous Duty Cycle 100% Intensity Setting (w/cm2) 1.5 PT-OP-T Assessment and Plan Start: 09/30/17 10:13 Freq: Status: Active Protocol: Document 03/04/18 15:15 [facility] (Rec: 03/09/18 14:29 [facility] [email or web address]) Physical Therapy Assessment Assessment Summary Assessment Breanne returns to PT today after not being seen since December. She reports continued symptoms and at times symptoms are worse. She reports when she stands up and turns to the right she will often get a sharp pain through her pubic bone. She also reports feeling as if her pubic bone shifts out of place causing pain and once it shifts back in again her pain is gone. With reevaluation today she is tender to palpation over the pubic symphysis and has a + ASLR test demonstrating instability at the SI joint. I am wondering if when she fell on her left sacral region she strained her sacrotuberous ligament causing instability of the left illium and into the pubic bone. It is when she is standing on her left left and shifting to the right she gets pain or with sit- stand. She is also guarded in her pelvic floor muscles and becomes sore in the pelvic floor if I have her work on pelvic floor exercises to stabilize the pubic bone. I did a trial with a Boa SI belt today as I feel she needs additional stabilization at this time. She may also be a good candidate for Prolotherapy to help improve stabilization of the SI joint and pubic symphysis. Continued PT for SI stabilization would be beneficial. Physical Therapy Plan Frequency and Duration Frequency of Treatment 1x/Week Duration of Treatment 8 weeks Plan of Care Start Date 03/04/18 Plan of Care End Date 04/29/18 Therapeutic Interventions Therapeutic Interventions Home Exercise Program Joint Mobilizations Manual Therapy Neuromuscular Re-education Patient/Caregiver Education Self-Care/Home Management Soft Tissue Mobilization Therapeutic Exercises Modalities Ultrasound Next Visit Focus/Plan Next Visit Plan work on SI joint stabilization and pelvic floor contract relax
--- NOTE | 2018-03-16 17:14 | PT.OTN ---
Current Diagnoses Strain of muscle, fascia and tendon at neck level, initial encounter (03/11/18) Sprain of ligaments of lumbar spine, initial encounter (03/11/18) Physical Therapy Treatment Note PT-OP-A Visit Information Start: 09/30/17 09:57 Freq: Status: Active Protocol: Document 03/11/18 16:00 [facility] (Rec: 03/16/18 17:14 [facility] [email or web address]) Out-Patient Physical Therapy Visit Information Visit Information Visit Type Treatment Note Visit Start Time 16:00 Visit Stop Time 16:45 Total Visit Minutes 45 Visit Number 14 Number of RESEARCH AND DEVELOPMENT SPECIALIST Visits 0 PT-OP-B Current Condition Start: 09/30/17 10:00 Freq: Status: Active Protocol: Document 09/30/17 10:00 [facility] (Rec: 09/30/17 10:13 [facility] [email or web address]) Current Condition History of Current Condition Onset Date 07/06/17 Current Complaints c/o sharp left sided pubic pain that occurs with sit- stand activities History of Current Condition Per patient report 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 She began having neck and back discomfort and she sought out care for these issues. The pubic bone pain came on slowly and was not addressed in PT or chiropractic. With PT, massage and acute care certified nursing assistant her neck and back pain have diminished however her pubic bone symptoms are worsening and now she notes her left side of the pubic bone region aches all the time when sitting and is a sharp pain when she goes to stand. She also notes pain in the left buttock region. Breanne initially thought she had a bladder infection because of the pain in the pubic region but tests for this are negative. Prior Treatments and Tests Xrays are negative for any fractures Treatment Goals Patient/Caregiver Goals Serge's goals include eliminating her pain in the left buttock and pubic bone and that she is able to sit and perform sit to stand activities without pain. Prior Functional Status Baseline Function- ADL's Independent Baseline Function- Mobility Independent Current Functional Impairments (Reported) Functional Limitations- Other pain with sitting and pain with sit-stand activities PT-OP-C Subjective Start: 09/30/17 10:00 Freq: Status: Active Protocol: Document 03/11/18 16:00 [facility] (Rec: 03/16/18 17:14 [facility] [email or web address]) OP-PT Subjective Patient Comments Patient Comments Breanne reports she tried the SI belt but it made her feel worse. She has been trying to keep symmetrical with standing and tighten her pelvic floor and abdominal wall when changing positions. Her pelvic floor gets sore after a contraction though PT-OP-J Posture/Palpation/Skin Start: 09/30/17 10:13 Freq: Status: Active Protocol: Document 03/04/18 15:15 [facility] (Rec: 03/09/18 14:29 [facility] [email or web address]) Palpation Assessment Location Two Palpation Location left adductos Palpation Findings Soft Tissue Tightness Spasm Muscle Guarding Tenderness Palpation Details tenderness of the left adductor at the attachment to the pubic bone and along the muscle belly. There is guarding along the muscle. No pain with AROM left hip or passive stretching of the left adductors in supine One Palpation Location pubic bone left side Palpation Findings Tenderness PT-OP-K Range of Motion Start: 09/30/17 10:13 Freq: Status: Active Protocol: Document 09/30/17 10:14 [facility] (Rec: 09/30/17 10:48 [facility] [email or web address]) Lumbar Spine Range of Motion Lumbar Spine Active Comments lumbar spine ROM is WFL in standing PT-OP-L Special Tests Start: 09/30/17 10:13 Freq: Status: Active Protocol: Document 03/09/18 14:29 [facility] (Rec: 03/09/18 14:30 [facility] [email or web address]) Special Tests Other Special Tests Special Tests + ASLR left for the left side, left pubic upslip, left out flare PT-OP-Q Treatments Start: 09/30/17 10:13 Freq: Status: Active Protocol: Document 03/11/18 16:00 [facility] (Rec: 03/16/18 17:14 [facility] [email or web address]) Therapeutic Exercises Supine Exercises 5 Supine Exercise Name adductor squeeze with ball Manual Therapy Treatment Soft Tissue Mobilization 4 Body Location pelvic diaphragm MFR technique 3 Body Location posterior gluteal release Body Position Prone 1 Body Location left adductor release Body Position Supine Comments manual adductor stretching PT-OP-R Modalities Start: 10/13/17 18:06 Freq: Status: Active Protocol: Document 12/08/17 15:35 [facility] (Rec: 12/08/17 15:42 [facility] [email or web address]) Ultrasound Therapy Treatment left external medial border ischial tuberoisty Treatment Duration (minutes) 8 Patient Position Supine Coupling Medium Ultrasound Gel Applicator Size (cm2) 5 Frequency Setting (mHz) 1 Mode Setting Continuous Duty Cycle 100% Intensity Setting (w/cm2) 1.5 PT-OP-T Assessment and Plan Start: 09/30/17 10:13 Freq: Status: Active Protocol: Document 03/11/18 16:00 [facility] (Rec: 03/16/18 17:14 [facility] [email or web address]) Physical Therapy Assessment Assessment Summary Assessment still sore when attempting a pelvic floor contraction, trial of returning to TA stabilization next visit Physical Therapy Plan Frequency and Duration Frequency of Treatment 1x/Week Duration of Treatment 8 weeks Plan of Care Start Date 03/04/18 Plan of Care End Date 04/29/18 Next Visit Focus/Plan Next Note Type Treatment Note Next Visit Plan work on SI joint stabilization and pelvic floor contract relax
--- NOTE | 2018-03-30 15:49 | PT.OTN ---
Current Diagnoses Strain of muscle, fascia and tendon at neck level, initial encounter (03/30/18) Sprain of ligaments of lumbar spine, initial encounter (03/30/18) Physical Therapy Treatment Note PT-OP-A Visit Information Start: 09/30/17 09:57 Freq: Status: Active Protocol: Document 03/30/18 15:37 [facility] (Rec: 03/30/18 15:49 [facility] [email or web address]) Out-Patient Physical Therapy Visit Information Visit Information Visit Type Treatment Note Visit Start Time 14:30 Visit Stop Time 15:15 Total Visit Minutes 45 Visit Number 15 Evaluation Information Evaluation Date 09/29/17 PT-OP-B Current Condition Start: 09/30/17 10:00 Freq: Status: Active Protocol: Document 09/30/17 10:00 [facility] (Rec: 09/30/17 10:13 [facility] [email or web address]) Current Condition History of Current Condition Onset Date 07/06/17 Current Complaints c/o sharp left sided pubic pain that occurs with sit- stand activities History of Current Condition Per patient report 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 She began having neck and back discomfort and she sought out care for these issues. The pubic bone pain came on slowly and was not addressed in PT or chiropractic. With PT, massage and insurance healthcare consultant her neck and back pain have diminished however her pubic bone symptoms are worsening and now she notes her left side of the pubic bone region aches all the time when sitting and is a sharp pain when she goes to stand. She also notes pain in the left buttock region. Breanne initially thought she had a bladder infection because of the pain in the pubic region but tests for this are negative. Prior Treatments and Tests Xrays are negative for any fractures Treatment Goals Patient/Caregiver Goals Serge's goals include eliminating her pain in the left buttock and pubic bone and that she is able to sit and perform sit to stand activities without pain. Prior Functional Status Baseline Function- ADL's Independent Baseline Function- Mobility Independent Current Functional Impairments (Reported) Functional Limitations- Other pain with sitting and pain with sit-stand activities PT-OP-C Subjective Start: 09/30/17 10:00 Freq: Status: Active Protocol: Document 03/30/18 15:37 [facility] (Rec: 03/30/18 15:49 [facility] [email or web address]) OP-PT Subjective Patient Comments Patient Comments Breanne reports her sharp pain has been reduced as she has been very intentional about not doing any single leg stance activities. She does feel a global wide spread pain at times with weightbearing but it is not as sharp. PT-OP-J Posture/Palpation/Skin Start: 09/30/17 10:13 Freq: Status: Active Protocol: Document 03/04/18 15:15 [facility] (Rec: 03/09/18 14:29 [facility] [email or web address]) Palpation Assessment Location Two Palpation Location left adductos Palpation Findings Soft Tissue Tightness Spasm Muscle Guarding Tenderness Palpation Details tenderness of the left adductor at the attachment to the pubic bone and along the muscle belly. There is guarding along the muscle. No pain with AROM left hip or passive stretching of the left adductors in supine One Palpation Location pubic bone left side Palpation Findings Tenderness PT-OP-K Range of Motion Start: 09/30/17 10:13 Freq: Status: Active Protocol: Document 09/30/17 10:14 [facility] (Rec: 09/30/17 10:48 [facility] [email or web address]) Lumbar Spine Range of Motion Lumbar Spine Active Comments lumbar spine ROM is WFL in standing PT-OP-L Special Tests Start: 09/30/17 10:13 Freq: Status: Active Protocol: Document 03/09/18 14:29 [facility] (Rec: 03/09/18 14:30 [facility] [email or web address]) Special Tests Other Special Tests Special Tests + ASLR left for the left side, left pubic upslip, left out flare PT-OP-Q Treatments Start: 09/30/17 10:13 Freq: Status: Active Protocol: Document 03/30/18 15:37 [facility] (Rec: 03/30/18 15:49 [facility] [email or web address]) Therapeutic Exercises Supine Exercises 5 Supine Exercise Name adductor squeeze with ball Sitting Exercises 1 Sitting Exercise Name seated sidebend stretching for QL Manual Therapy Treatment Soft Tissue Mobilization 5 Body Location right quadratus lumborum release 3 Body Location posterior gluteal release Body Position Prone 2 Body Location left obturator internus Mobilization Type Myofascial Release Intensity/Depth Moderate Body Position Supine Comments prone, supine and sidelying 1 Body Location left adductor release Body Position Supine Comments manual adductor stretching Joint Mobilizations 2 Joint right pubic upslip MET Body Position Supine PT-OP-R Modalities Start: 10/13/17 18:06 Freq: Status: Active Protocol: Document 12/08/17 15:35 [facility] (Rec: 12/08/17 15:42 [facility] [email or web address]) Ultrasound Therapy Treatment left external medial border ischial tuberoisty Treatment Duration (minutes) 8 Patient Position Supine Coupling Medium Ultrasound Gel Applicator Size (cm2) 5 Frequency Setting (mHz) 1 Mode Setting Continuous Duty Cycle 100% Intensity Setting (w/cm2) 1.5 PT-OP-T Assessment and Plan Start: 09/30/17 10:13 Freq: Status: Active Protocol: Document 03/30/18 15:37 [facility] (Rec: 03/30/18 15:49 [facility] [email or web address]) Physical Therapy Assessment Assessment Summary Assessment Still very tender to palpation at the pubic bone. breanne is able to facilitate her pelvic floor now, it can still be painful but the pain goes away following a contraction. I did talk to her about trying core compression shorts to see if this would help her pelvic stability Physical Therapy Plan Frequency and Duration Frequency of Treatment 1x/Week Duration of Treatment 8 weeks Plan of Care Start Date 03/04/18 Plan of Care End Date 04/29/18 Therapeutic Interventions Therapeutic Interventions Home Exercise Program Joint Mobilizations Manual Therapy Neuromuscular Re-education Patient/Caregiver Education Self-Care/Home Management Soft Tissue Mobilization Therapeutic Exercises Modalities Ultrasound Next Visit Focus/Plan Next Note Type Treatment Note Next Visit Plan continue to work on muscular release and aligning the pelvis, focusing more on stabilization as Breanne can tolerate
--- NOTE | 2018-04-06 17:49 | PT.OTN ---
Current Diagnoses Strain of muscle, fascia and tendon at neck level, initial encounter (04/06/18) Sprain of ligaments of lumbar spine, initial encounter (04/06/18) Physical Therapy Treatment Note PT-OP-A Visit Information Start: 09/30/17 09:57 Freq: Status: Active Protocol: Document 04/06/18 17:44 [facility] (Rec: 04/06/18 17:49 [facility] [email or web address]) Out-Patient Physical Therapy Visit Information Visit Information Visit Type Treatment Note Visit Start Time 15:15 Visit Stop Time 16:00 Total Visit Minutes 45 Visit Number 16 PT-OP-B Current Condition Start: 09/30/17 10:00 Freq: Status: Active Protocol: Document 09/30/17 10:00 [facility] (Rec: 09/30/17 10:13 [facility] [email or web address]) Current Condition History of Current Condition Onset Date 07/06/17 Current Complaints c/o sharp left sided pubic pain that occurs with sit- stand activities History of Current Condition Per patient report 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 She began having neck and back discomfort and she sought out care for these issues. The pubic bone pain came on slowly and was not addressed in PT or chiropractic. With PT, massage and inspector health care facilities her neck and back pain have diminished however her pubic bone symptoms are worsening and now she notes her left side of the pubic bone region aches all the time when sitting and is a sharp pain when she goes to stand. She also notes pain in the left buttock region. Breanne initially thought she had a bladder infection because of the pain in the pubic region but tests for this are negative. Prior Treatments and Tests Xrays are negative for any fractures Treatment Goals Patient/Caregiver Goals Serge's goals include eliminating her pain in the left buttock and pubic bone and that she is able to sit and perform sit to stand activities without pain. Prior Functional Status Baseline Function- ADL's Independent Baseline Function- Mobility Independent Current Functional Impairments (Reported) Functional Limitations- Other pain with sitting and pain with sit-stand activities PT-OP-C Subjective Start: 09/30/17 10:00 Freq: Status: Active Protocol: Document 04/06/18 17:44 [facility] (Rec: 04/06/18 17:49 [facility] [email or web address]) OP-PT Subjective Patient Comments Patient Comments Breanne reports she is better in some ways with decreased sharp joint pain but then she has diffuse pain in her pelvic floor area with sitting. She is awaiting her MD visit with the specialist 05/05/18 PT-OP-J Posture/Palpation/Skin Start: 09/30/17 10:13 Freq: Status: Active Protocol: Document 03/04/18 15:15 [facility] (Rec: 03/09/18 14:29 [facility] [email or web address]) Palpation Assessment Location Two Palpation Location left adductos Palpation Findings Soft Tissue Tightness Spasm Muscle Guarding Tenderness Palpation Details tenderness of the left adductor at the attachment to the pubic bone and along the muscle belly. There is guarding along the muscle. No pain with AROM left hip or passive stretching of the left adductors in supine One Palpation Location pubic bone left side Palpation Findings Tenderness PT-OP-K Range of Motion Start: 09/30/17 10:13 Freq: Status: Active Protocol: Document 09/30/17 10:14 [facility] (Rec: 09/30/17 10:48 [facility] [email or web address]) Lumbar Spine Range of Motion Lumbar Spine Active Comments lumbar spine ROM is WFL in standing PT-OP-L Special Tests Start: 09/30/17 10:13 Freq: Status: Active Protocol: Document 03/09/18 14:29 [facility] (Rec: 03/09/18 14:30 [facility] [email or web address]) Special Tests Other Special Tests Special Tests + ASLR left for the left side, left pubic upslip, left out flare PT-OP-Q Treatments Start: 09/30/17 10:13 Freq: Status: Active Protocol: Document 04/06/18 17:44 [facility] (Rec: 04/06/18 17:49 [facility] [email or web address]) Manual Therapy Treatment Soft Tissue Mobilization 4 Body Location pelvic diaphragm MFR technique 3 Body Location posterior gluteal release Body Position Prone 2 Body Location left obturator internus Mobilization Type Myofascial Release Intensity/Depth Moderate Body Position Supine Comments prone, supine and sidelying 1 Body Location left adductor release Body Position Supine Comments manual adductor stretching Joint Mobilizations 2 Joint right pubic upslip MET Body Position Supine PT-OP-R Modalities Start: 10/13/17 18:06 Freq: Status: Active Protocol: Document 12/08/17 15:35 [facility] (Rec: 12/08/17 15:42 [facility] [email or web address]) Ultrasound Therapy Treatment left external medial border ischial tuberoisty Treatment Duration (minutes) 8 Patient Position Supine Coupling Medium Ultrasound Gel Applicator Size (cm2) 5 Frequency Setting (mHz) 1 Mode Setting Continuous Duty Cycle 100% Intensity Setting (w/cm2) 1.5 PT-OP-T Assessment and Plan Start: 09/30/17 10:13 Freq: Status: Active Protocol: Document 04/06/18 17:44 [facility] (Rec: 04/06/18 17:49 [facility] [email or web address]) Physical Therapy Assessment Assessment Summary Assessment It is difficult to work on pelvic floor stabilization as Breanne tends to get guarding pain from this area after a few contractions. I am working on releasing the pelvic floor to enable Breanne to stabilize here. I did recommend compression shorts as these may give her some increased stabilty and I still feel prolotherapy may be very helpful for her. Physical Therapy Plan Frequency and Duration Frequency of Treatment 2x/Week Duration of Treatment 8 Plan of Care Start Date 03/04/18 Plan of Care End Date 04/29/18 Therapeutic Interventions Therapeutic Interventions Home Exercise Program Joint Mobilizations Manual Therapy Neuromuscular Re-education Patient/Caregiver Education Self-Care/Home Management Soft Tissue Mobilization Therapeutic Exercises Modalities Ultrasound Next Visit Focus/Plan Next Note Type Treatment Note Next Visit Plan continue to work on muscular release and aligning the pelvis, focusing more on stabilization as Breanne can tolerate
--- NOTE | 2018-04-08 16:42 | PT.OTN ---
Current Diagnoses Strain of muscle, fascia and tendon at neck level, initial encounter (04/08/18) Sprain of ligaments of lumbar spine, initial encounter (04/08/18) Physical Therapy Treatment Note PT-OP-A Visit Information Start: 09/30/17 09:57 Freq: Status: Active Protocol: Document 04/08/18 16:31 [facility] (Rec: 04/08/18 16:42 [facility] [email or web address]) Out-Patient Physical Therapy Visit Information Visit Information Visit Type Treatment Note Visit Start Time 15:15 Visit Stop Time 16:00 Total Visit Minutes 45 Visit Number 17 Number of EXPORT COORDINATOR Visits 0 PT-OP-B Current Condition Start: 09/30/17 10:00 Freq: Status: Active Protocol: Document 09/30/17 10:00 [facility] (Rec: 09/30/17 10:13 [facility] [email or web address]) Current Condition History of Current Condition Onset Date 07/06/17 Current Complaints c/o sharp left sided pubic pain that occurs with sit- stand activities History of Current Condition Per patient report 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 She began having neck and back discomfort and she sought out care for these issues. The pubic bone pain came on slowly and was not addressed in PT or chiropractic. With PT, massage and child care development specialist her neck and back pain have diminished however her pubic bone symptoms are worsening and now she notes her left side of the pubic bone region aches all the time when sitting and is a sharp pain when she goes to stand. She also notes pain in the left buttock region. Breanne initially thought she had a bladder infection because of the pain in the pubic region but tests for this are negative. Prior Treatments and Tests Xrays are negative for any fractures Treatment Goals Patient/Caregiver Goals Serge's goals include eliminating her pain in the left buttock and pubic bone and that she is able to sit and perform sit to stand activities without pain. Prior Functional Status Baseline Function- ADL's Independent Baseline Function- Mobility Independent Current Functional Impairments (Reported) Functional Limitations- Other pain with sitting and pain with sit-stand activities PT-OP-C Subjective Start: 09/30/17 10:00 Freq: Status: Active Protocol: Document 04/08/18 16:31 [facility] (Rec: 04/08/18 16:42 [facility] [email or web address]) OP-PT Subjective Patient Comments Patient Comments Breanne reports sharp pain is reduced and she has acheyness in her pelvic floor muscles. She was sore there following last visit. She did purchase core shorts and she feels this is really helping stabilize her. PT-OP-J Posture/Palpation/Skin Start: 09/30/17 10:13 Freq: Status: Active Protocol: Document 03/04/18 15:15 [facility] (Rec: 03/09/18 14:29 [facility] [email or web address]) Palpation Assessment Location Two Palpation Location left adductos Palpation Findings Soft Tissue Tightness Spasm Muscle Guarding Tenderness Palpation Details tenderness of the left adductor at the attachment to the pubic bone and along the muscle belly. There is guarding along the muscle. No pain with AROM left hip or passive stretching of the left adductors in supine One Palpation Location pubic bone left side Palpation Findings Tenderness PT-OP-K Range of Motion Start: 09/30/17 10:13 Freq: Status: Active Protocol: Document 09/30/17 10:14 [facility] (Rec: 09/30/17 10:48 [facility] [email or web address]) Lumbar Spine Range of Motion Lumbar Spine Active Comments lumbar spine ROM is WFL in standing PT-OP-L Special Tests Start: 09/30/17 10:13 Freq: Status: Active Protocol: Document 03/09/18 14:29 [facility] (Rec: 03/09/18 14:30 [facility] [email or web address]) Special Tests Other Special Tests Special Tests + ASLR left for the left side, left pubic upslip, left out flare PT-OP-Q Treatments Start: 09/30/17 10:13 Freq: Status: Active Protocol: Document 04/08/18 16:31 [facility] (Rec: 04/08/18 16:42 [facility] [email or web address]) Therapeutic Exercises Supine Exercises 3 Supine Exercise Name TA isolation 2 Supine Exercise Name TA with heel slides 1 Supine Exercise Name TA with marches Other Exercises 3 Other Exercise Name iliopsoas stretch with leg off ball and in half kneeling position 2 Other Exercise Name TA with opp arm and opp leg lifts 1 Other Exercise Name quadraped TA facilitation with breath work PT-OP-R Modalities Start: 10/13/17 18:06 Freq: Status: Active Protocol: Document 12/08/17 15:35 [facility] (Rec: 12/08/17 15:42 [facility] [email or web address]) Ultrasound Therapy Treatment left external medial border ischial tuberoisty Treatment Duration (minutes) 8 Patient Position Supine Coupling Medium Ultrasound Gel Applicator Size (cm2) 5 Frequency Setting (mHz) 1 Mode Setting Continuous Duty Cycle 100% Intensity Setting (w/cm2) 1.5 PT-OP-T Assessment and Plan Start: 09/30/17 10:13 Freq: Status: Active Protocol: Document 04/08/18 16:31 [facility] (Rec: 04/08/18 16:42 [facility] [email or web address]) Physical Therapy Assessment Assessment Summary Assessment We worked today on stretching the pelvic floor in between stabilization exercise and this really helped Breanne with the spasm she was getting in her pelvic floor. She will try doing this at home too. Physical Therapy Plan Frequency and Duration Frequency of Treatment 2x/Week Duration of Treatment 8 Plan of Care Start Date 03/04/18 Plan of Care End Date 04/29/18 Therapeutic Interventions Therapeutic Interventions Home Exercise Program Joint Mobilizations Manual Therapy Neuromuscular Re-education Patient/Caregiver Education Self-Care/Home Management Soft Tissue Mobilization Therapeutic Exercises Modalities Ultrasound Next Visit Focus/Plan Next Note Type Treatment Note Next Visit Plan Check in with how Breanne did with increasing her stabilization exercises and continue to progress stabilization of the SI joint as she can tolerate
--- NOTE | 2018-04-20 17:32 | PT.OTN ---
Current Diagnoses Strain of muscle, fascia and tendon at neck level, initial encounter (04/20/18) Sprain of ligaments of lumbar spine, initial encounter (04/20/18) Physical Therapy Treatment Note PT-OP-A Visit Information Start: 09/30/17 09:57 Freq: Status: Active Protocol: Document 04/20/18 17:27 [facility] (Rec: 04/20/18 17:32 [facility] [email or web address]) Out-Patient Physical Therapy Visit Information Visit Information Visit Type Treatment Note Visit Start Time 14:00 Visit Stop Time 14:45 Total Visit Minutes 45 Visit Number 18 Number of PRODUCTION RECOVERY OPERATOR Visits 0 PT-OP-B Current Condition Start: 09/30/17 10:00 Freq: Status: Active Protocol: Document 09/30/17 10:00 [facility] (Rec: 09/30/17 10:13 [facility] [email or web address]) Current Condition History of Current Condition Onset Date 07/06/17 Current Complaints c/o sharp left sided pubic pain that occurs with sit- stand activities History of Current Condition Per patient report 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 She began having neck and back discomfort and she sought out care for these issues. The pubic bone pain came on slowly and was not addressed in PT or chiropractic. With PT, massage and day care provider her neck and back pain have diminished however her pubic bone symptoms are worsening and now she notes her left side of the pubic bone region aches all the time when sitting and is a sharp pain when she goes to stand. She also notes pain in the left buttock region. Breanne initially thought she had a bladder infection because of the pain in the pubic region but tests for this are negative. Prior Treatments and Tests Xrays are negative for any fractures Treatment Goals Patient/Caregiver Goals Serge's goals include eliminating her pain in the left buttock and pubic bone and that she is able to sit and perform sit to stand activities without pain. Prior Functional Status Baseline Function- ADL's Independent Baseline Function- Mobility Independent Current Functional Impairments (Reported) Functional Limitations- Other pain with sitting and pain with sit-stand activities PT-OP-C Subjective Start: 09/30/17 10:00 Freq: Status: Active Protocol: Document 04/20/18 17:27 [facility] (Rec: 04/20/18 17:32 [facility] [email or web address]) OP-PT Subjective Patient Comments Patient Comments Breanne notes she has been experiencing a great deal of popping of her back. She did start with a new chiropractor and notes he was able to adjust her pelvis. PT-OP-J Posture/Palpation/Skin Start: 09/30/17 10:13 Freq: Status: Active Protocol: Document 03/04/18 15:15 [facility] (Rec: 03/09/18 14:29 [facility] [email or web address]) Palpation Assessment Location Two Palpation Location left adductos Palpation Findings Soft Tissue Tightness Spasm Muscle Guarding Tenderness Palpation Details tenderness of the left adductor at the attachment to the pubic bone and along the muscle belly. There is guarding along the muscle. No pain with AROM left hip or passive stretching of the left adductors in supine One Palpation Location pubic bone left side Palpation Findings Tenderness PT-OP-K Range of Motion Start: 09/30/17 10:13 Freq: Status: Active Protocol: Document 09/30/17 10:14 [facility] (Rec: 09/30/17 10:48 [facility] [email or web address]) Lumbar Spine Range of Motion Lumbar Spine Active Comments lumbar spine ROM is WFL in standing PT-OP-L Special Tests Start: 09/30/17 10:13 Freq: Status: Active Protocol: Document 03/09/18 14:29 [facility] (Rec: 03/09/18 14:30 [facility] [email or web address]) Special Tests Other Special Tests Special Tests + ASLR left for the left side, left pubic upslip, left out flare PT-OP-Q Treatments Start: 09/30/17 10:13 Freq: Status: Active Protocol: Document 04/20/18 17:27 [facility] (Rec: 04/20/18 17:32 [facility] [email or web address]) Therapeutic Exercises Supine Exercises 2 Supine Exercise Name TA with heel slides 1 Supine Exercise Name TA with marches Other Exercises 3 Other Exercise Name iliopsoas stretch with leg off ball and in half kneeling position 2 Other Exercise Name TA with opp arm and opp leg lifts 1 Other Exercise Name quadraped TA facilitation with breath work Manual Therapy Treatment Soft Tissue Mobilization 4 Body Location pelvic diaphragm MFR technique 1 Body Location left adductor release Body Position Supine Comments manual adductor stretching PT-OP-R Modalities Start: 10/13/17 18:06 Freq: Status: Active Protocol: Document 12/08/17 15:35 [facility] (Rec: 12/08/17 15:42 [facility] [email or web address]) Ultrasound Therapy Treatment left external medial border ischial tuberoisty Treatment Duration (minutes) 8 Patient Position Supine Coupling Medium Ultrasound Gel Applicator Size (cm2) 5 Frequency Setting (mHz) 1 Mode Setting Continuous Duty Cycle 100% Intensity Setting (w/cm2) 1.5 PT-OP-T Assessment and Plan Start: 09/30/17 10:13 Freq: Status: Active Protocol: Document 04/20/18 17:27 [facility] (Rec: 04/20/18 17:32 [facility] [email or web address]) Physical Therapy Assessment Assessment Summary Assessment again needed to do stretches inbetween abdominal and pelvic floor stabilization as the left side of the pelvic floor goes into spasm with contractions. I think prolotherapy may really help Breanne. SHe has her MD appointment with the specialist on May 06 Physical Therapy Plan Frequency and Duration Frequency of Treatment 2x/Week Duration of Treatment 8 Plan of Care Start Date 03/04/18 Plan of Care End Date 04/29/18 Therapeutic Interventions Therapeutic Interventions Home Exercise Program Joint Mobilizations Manual Therapy Neuromuscular Re-education Patient/Caregiver Education Self-Care/Home Management Soft Tissue Mobilization Therapeutic Exercises Modalities Ultrasound Next Visit Focus/Plan Next Note Type Treatment Note Next Visit Plan continue to progress stabilization exercises as tolerated
--- NOTE | 2018-04-28 12:00 | PT.OTN ---
Current Diagnoses Strain of muscle, fascia and tendon at neck level, initial encounter (04/20/18) Sprain of ligaments of lumbar spine, initial encounter (04/20/18) Physical Therapy Treatment Note PT-OP-A Visit Information Start: 09/30/17 09:57 Freq: Status: Active Protocol: Document 04/27/18 14:30 [facility] (Rec: 04/28/18 10:00 [facility] [email or web address]) Out-Patient Physical Therapy Visit Information Visit Information Visit Type Treatment Note Visit Start Time 14:30 Visit Stop Time 15:15 Total Visit Minutes 45 Visit Number 19 Number of WELL DRILL OPERATOR ROTARY DRILL Visits 0 PT-OP-B Current Condition Start: 09/30/17 10:00 Freq: Status: Active Protocol: Document 09/30/17 10:00 [facility] (Rec: 09/30/17 10:13 [facility] [email or web address]) Current Condition History of Current Condition Onset Date 07/06/17 Current Complaints c/o sharp left sided pubic pain that occurs with sit- stand activities History of Current Condition Per patient report 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 She began having neck and back discomfort and she sought out care for these issues. The pubic bone pain came on slowly and was not addressed in PT or chiropractic. With PT, massage and health and social care teacher her neck and back pain have diminished however her pubic bone symptoms are worsening and now she notes her left side of the pubic bone region aches all the time when sitting and is a sharp pain when she goes to stand. She also notes pain in the left buttock region. Breanne initially thought she had a bladder infection because of the pain in the pubic region but tests for this are negative. Prior Treatments and Tests Xrays are negative for any fractures Treatment Goals Patient/Caregiver Goals Serge's goals include eliminating her pain in the left buttock and pubic bone and that she is able to sit and perform sit to stand activities without pain. Prior Functional Status Baseline Function- ADL's Independent Baseline Function- Mobility Independent Current Functional Impairments (Reported) Functional Limitations- Other pain with sitting and pain with sit-stand activities PT-OP-C Subjective Start: 09/30/17 10:00 Freq: Status: Active Protocol: Document 04/27/18 14:30 [facility] (Rec: 04/28/18 10:00 [facility] [email or web address]) OP-PT Subjective Patient Comments Patient Comments very sore across the right illiac crest. Chiropractor says shei s very guarded here. Still feeling the pubic symphysis pain but duller. PT-OP-J Posture/Palpation/Skin Start: 09/30/17 10:13 Freq: Status: Active Protocol: Document 03/04/18 15:15 [facility] (Rec: 03/09/18 14:29 [facility] [email or web address]) Palpation Assessment Location Two Palpation Location left adductos Palpation Findings Soft Tissue Tightness Spasm Muscle Guarding Tenderness Palpation Details tenderness of the left adductor at the attachment to the pubic bone and along the muscle belly. There is guarding along the muscle. No pain with AROM left hip or passive stretching of the left adductors in supine One Palpation Location pubic bone left side Palpation Findings Tenderness PT-OP-K Range of Motion Start: 09/30/17 10:13 Freq: Status: Active Protocol: Document 09/30/17 10:14 [facility] (Rec: 09/30/17 10:48 [facility] [email or web address]) Lumbar Spine Range of Motion Lumbar Spine Active Comments lumbar spine ROM is WFL in standing PT-OP-L Special Tests Start: 09/30/17 10:13 Freq: Status: Active Protocol: Document 03/09/18 14:29 [facility] (Rec: 03/09/18 14:30 [facility] [email or web address]) Special Tests Other Special Tests Special Tests + ASLR left for the left side, left pubic upslip, left out flare PT-OP-Q Treatments Start: 09/30/17 10:13 Freq: Status: Active Protocol: Document 04/27/18 14:30 [facility] (Rec: 04/28/18 10:00 [facility] [email or web address]) Manual Therapy Treatment Soft Tissue Mobilization 3 Body Location posterior gluteal and QL release Body Position Prone Joint Mobilizations 3 Joint sacral counter nutation Comments prone MET PT-OP-R Modalities Start: 10/13/17 18:06 Freq: Status: Active Protocol: Document 04/27/18 15:15 [facility] (Rec: 04/28/18 12:00 [facility] [email or web address]) Ultrasound Therapy Treatment right quadratus lumborum Treatment Duration (minutes) 8 Patient Position Prone Coupling Medium Ultrasound Gel Applicator Size (cm2) 5 Mode Setting Continuous Duty Cycle 100% PT-OP-T Assessment and Plan Start: 09/30/17 10:13 Freq: Status: Active Protocol: Document 04/27/18 14:30 [facility] (Rec: 04/28/18 10:00 [facility] [email or web address]) Physical Therapy Assessment Assessment Summary Assessment Breanne is still dealing with instability in her SI joint. Therefore she gets muscle guarding and spasm. We are trying to work on stabilization but this gives her pelvic floor acheyness and spasm. I feel she is in need of further work up and a trial of prolotherapy for additional SI joint stabilization. She sees the specialist this week for further evaluation Physical Therapy Plan Frequency and Duration Frequency of Treatment 2x/Week Duration of Treatment 8 Plan of Care Start Date 03/04/18 Plan of Care End Date 04/29/18 Therapeutic Interventions Therapeutic Interventions Home Exercise Program Joint Mobilizations Manual Therapy Neuromuscular Re-education Patient/Caregiver Education Self-Care/Home Management Soft Tissue Mobilization Therapeutic Exercises Modalities Ultrasound Next Visit Focus/Plan Next Note Type Re-Evaluation Next Visit Plan re-evaluate Breanne after she returns from her MD visit. SHe does not have any further visits scheduled at this time.
--- NOTE | 2018-06-23 10:29 | PT.OTRE ---
Current Diagnoses Strain of muscle, fascia and tendon at neck level, initial encounter (06/22/18) Sprain of ligaments of lumbar spine, initial encounter (06/22/18) Provider Visit Care Team Role Provider Type Mee Licona MD Attending Provider Physician Primary Care Provider Specialty: Physical Medicine and Rehab Address: [address] [place] [address], [id number] Email: Physical Therapy Re-Evaluation PT-OP-A Visit Information Start: 09/30/17 09:57 Freq: Status: Active Protocol: Document 06/22/18 14:30 [facility] (Rec: 06/23/18 10:29 [facility] [email or web address]) Out-Patient Physical Therapy Visit Information Visit Information Visit Type Re-Evaluation Visit Start Time 14:30 Visit Stop Time 15:15 Total Visit Minutes 45 Visit Number 1 Evaluation Information Evaluation Date 09/29/17 PT-OP-B Current Condition Start: 09/30/17 10:00 Freq: Status: Active Protocol: Document 09/30/17 10:00 [facility] (Rec: 09/30/17 10:13 [facility] [email or web address]) Current Condition History of Current Condition Onset Date 07/06/17 Current Complaints c/o sharp left sided pubic pain that occurs with sit- stand activities History of Current Condition Per patient report 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 She began having neck and back discomfort and she sought out care for these issues. The pubic bone pain came on slowly and was not addressed in PT or chiropractic. With PT, massage and transitions rn care coordinator her neck and back pain have diminished however her pubic bone symptoms are worsening and now she notes her left side of the pubic bone region aches all the time when sitting and is a sharp pain when she goes to stand. She also notes pain in the left buttock region. Breanne initially thought she had a bladder infection because of the pain in the pubic region but tests for this are negative. Prior Treatments and Tests Xrays are negative for any fractures Treatment Goals Patient/Caregiver Goals Serge's goals include eliminating her pain in the left buttock and pubic bone and that she is able to sit and perform sit to stand activities without pain. Prior Functional Status Baseline Function- ADL's Independent Baseline Function- Mobility Independent Current Functional Impairments (Reported) Functional Limitations- Other pain with sitting and pain with sit-stand activities PT-OP-C Subjective Start: 09/30/17 10:00 Freq: Status: Active Protocol: Document 06/22/18 14:30 [facility] (Rec: 06/23/18 10:29 [facility] [email or web address]) OP-PT Subjective Patient Comments Patient Comments Breanen reports she was the specialist in [place] who recommended prolotherapy for her. She was in [place] the past 3 weeks and swam every day and she is feeling a little bit better. Her pain is intermittent if she moves wrong and she is noticing that she no longer has pain with pelvic floor facilitation. She would like to try PT again and see if she is able to stabilize on her own. OP-PT Pain Assessment Pain Assessment Grid Paper Pain Assessment Grid Completed Yes Location Left Groin Intensity 3 Pain Behaviors Pain Behaviors Guarding PT-OP-J Posture/Palpation/Skin Start: 09/30/17 10:13 Freq: Status: Active Protocol: Document 06/22/18 14:30 [facility] (Rec: 06/23/18 10:29 [facility] [email or web address]) Palpation Assessment Location Five Palpation Location right piriformis and gluteals Palpation Findings Soft Tissue Tightness Tenderness Four Palpation Location left gluteals and piriformis Palpation Findings Soft Tissue Tightness Three Palpation Location left sacral AWILDA and Left PSIS, right sacral base Palpation Findings Tenderness Palpation Details tenderness to palpation is decreased at this time and the sacrum is in good alignement today. Two Palpation Location left adductos Palpation Details some residual guarding still present One Palpation Location pubic bone left side Palpation Details tenderness to palpation PT-OP-K Range of Motion Start: 09/30/17 10:13 Freq: Status: Active Protocol: Document 09/30/17 10:14 [facility] (Rec: 09/30/17 10:48 [facility] [email or web address]) Lumbar Spine Range of Motion Lumbar Spine Active Comments lumbar spine ROM is WFL in standing PT-OP-L Special Tests Start: 09/30/17 10:13 Freq: Status: Active Protocol: Document 03/09/18 14:29 [facility] (Rec: 03/09/18 14:30 [facility] [email or web address]) Special Tests Other Special Tests Special Tests + ASLR left for the left side, left pubic upslip, left out flare PT-OP-Q Treatments Start: 09/30/17 10:13 Freq: Status: Active Protocol: Document 06/22/18 14:30 [facility] (Rec: 06/23/18 10:29 [facility] [email or web address]) Manual Therapy Treatment Soft Tissue Mobilization 5 Body Location right quadratus lumborum release 3 Body Location posterior gluteal and QL release Body Position Prone PT-OP-R Modalities Start: 10/13/17 18:06 Freq: Status: Active Protocol: Document 04/27/18 15:15 [facility] (Rec: 04/28/18 12:00 [facility] [email or web address]) Ultrasound Therapy Treatment right quadratus lumborum Treatment Duration (minutes) 8 Patient Position Prone Coupling Medium Ultrasound Gel Applicator Size (cm2) 5 Mode Setting Continuous Duty Cycle 100% PT-OP-T Assessment and Plan Start: 09/30/17 10:13 Freq: Status: Active Protocol: Document 06/22/18 14:30 [facility] (Rec: 06/23/18 10:29 [facility] [email or web address]) Physical Therapy Assessment Goals Five Impairment lacks higher level dynamic stabilzation program Short Term Goal (STG) Breanne is instructed in and is able to tolerate a higher level dynamic stabilization program for core stability. STG Duration 6 weeks Four Impairment The patient lacks a home program for SI and pubic bone stabilization Short Term Goal (STG) Breanne will be given a home program for SI and pubic bone stabilization including pelvic floor training for the pubic bone and transverse abdominal training for the SI STG Duration 6 weeks [facility] Goal (LTG) Goal MET: Breanne is working on a home program and is able to facilitate her pelvic floor now Three Impairment Sacral torsion and out flare of the left innominant Short Term Goal (STG) correct sacral and SI alignment with manual therapy techniques and there is no tenderness to palpation at bony landmarks of the SI joint or along the sacrum STG Duration 6 weeks Litigation Support Analyst Goal (LTG) GOAL MET Two Impairment muscle guarding and spasm of the left adductor Short Term Goal (STG) With manual therapy techniques there is no longer spasm and tenderness to palpation of the left adductor STG Duration 4 weeks One Impairment pain at the left pubic bone with sitting and sit-stand [facility]ci Goal (LTG) Breanne reports no pain in sitting and is able to transfer from sit-stand without pain LTG Duration 8 weeks Progress Towards Goals Progress Towards Goals Progressing Toward Goals Progress Comments Breanne is doing well with her home program and sacral pain is reduced on the left. She did have right sided gluteal and piriformis tightness today and still has tenderness over the pubic bone. Swimming daily may have been beneficial for her core and hip muscles the last 3 weeks. Assessment Summary Assessment Breanne returns to PT after working on her own for the past 6 weeks. She was in [place] for 3 weeks and swam for a hour every day. She reports her pain levels have been reduced to a 3/10 at this time. She states that she will still have the sharp pain in her pubic bone if she takes a wrong step but this is less frequent. She is also able to contract her pelvic floor at this time without pain. She did see a specialist Camila Shepherd MD at [facility] who talked to her about the possibility of prolotherapy. This may be beneficial for Breanne but at this point because she is doing better she is opting for continued PT and massage therapy. The plan will be to increase her stabilization exercises now that she is tolerating isolating her inner core without pain. She would benefit from continued PT Physical Therapy Plan Frequency and Duration Frequency of Treatment 2x/Week Duration of Treatment 8 Plan of Care Start Date 06/22/18 Plan of Care End Date 08/17/18 Therapeutic Interventions Therapeutic Interventions Home Exercise Program Joint Mobilizations Manual Therapy Neuromuscular Re-education Patient/Caregiver Education Self-Care/Home Management Soft Tissue Mobilization Therapeutic Exercises Modalities Ultrasound Next Visit Focus/Plan Next Note Type Treatment Note Next Visit Plan begin increasing stabilization exercises as tolerated
--- NOTE | 2018-07-13 16:42 | PT.OTN ---
Current Diagnoses Strain of muscle, fascia and tendon at neck level, initial encounter (07/13/18) Sprain of ligaments of lumbar spine, initial encounter (07/13/18) Physical Therapy Treatment Note PT-OP-A Visit Information Start: 09/30/17 09:57 Freq: Status: Active Protocol: Document 07/13/18 16:35 [facility] (Rec: 07/13/18 16:42 [facility] [email or web address]) Out-Patient Physical Therapy Visit Information Visit Information Visit Type Treatment Note Visit Start Time 15:15 Visit Stop Time 16:00 Total Visit Minutes 45 Visit Number 2 Number of [employer] FORCES ENGINEER SERGEANT Visits 0 PT-OP-B Current Condition Start: 09/30/17 10:00 Freq: Status: Active Protocol: Document 09/30/17 10:00 [facility] (Rec: 09/30/17 10:13 [facility] [email or web address]) Current Condition History of Current Condition Onset Date 07/06/17 Current Complaints c/o sharp left sided pubic pain that occurs with sit- stand activities History of Current Condition Per patient report 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 She began having neck and back discomfort and she sought out care for these issues. The pubic bone pain came on slowly and was not addressed in PT or chiropractic. With PT, massage and child care attendant her neck and back pain have diminished however her pubic bone symptoms are worsening and now she notes her left side of the pubic bone region aches all the time when sitting and is a sharp pain when she goes to stand. She also notes pain in the left buttock region. Breanne initially thought she had a bladder infection because of the pain in the pubic region but tests for this are negative. Prior Treatments and Tests Xrays are negative for any fractures Treatment Goals Patient/Caregiver Goals Serge's goals include eliminating her pain in the left buttock and pubic bone and that she is able to sit and perform sit to stand activities without pain. Prior Functional Status Baseline Function- ADL's Independent Baseline Function- Mobility Independent Current Functional Impairments (Reported) Functional Limitations- Other pain with sitting and pain with sit-stand activities PT-OP-C Subjective Start: 09/30/17 10:00 Freq: Status: Active Protocol: Document 07/13/18 16:35 [facility] (Rec: 07/13/18 16:42 [facility] [email or web address]) OP-PT Subjective Patient Comments Patient Comments Breanne reports she is not doing as well as she was in May. She is having some pelvic floor spasms again which make it difficult for her to do her core exercises. She is not getting the sharp pain in the pubic pain very often only intermittently. She is also starting acupunture tx. PT-OP-J Posture/Palpation/Skin Start: 09/30/17 10:13 Freq: Status: Active Protocol: Document 06/22/18 14:30 [facility] (Rec: 06/23/18 10:29 [facility] [email or web address]) Palpation Assessment Location Five Palpation Location right piriformis and gluteals Palpation Findings Soft Tissue Tightness Tenderness Four Palpation Location left gluteals and piriformis Palpation Findings Soft Tissue Tightness Three Palpation Location left sacral AWILDA and Left PSIS, right sacral base Palpation Findings Tenderness Palpation Details tenderness to palpation is decreased at this time and the sacrum is in good alignement today. Two Palpation Location left adductos Palpation Details some residual guarding still present One Palpation Location pubic bone left side Palpation Details tenderness to palpation PT-OP-K Range of Motion Start: 09/30/17 10:13 Freq: Status: Active Protocol: Document 09/30/17 10:14 [facility] (Rec: 09/30/17 10:48 [facility] [email or web address]) Lumbar Spine Range of Motion Lumbar Spine Active Comments lumbar spine ROM is WFL in standing PT-OP-L Special Tests Start: 09/30/17 10:13 Freq: Status: Active Protocol: Document 03/09/18 14:29 [facility] (Rec: 03/09/18 14:30 [facility] [email or web address]) Special Tests Other Special Tests Special Tests + ASLR left for the left side, left pubic upslip, left out flare PT-OP-Q Treatments Start: 09/30/17 10:13 Freq: Status: Active Protocol: Document 07/13/18 16:35 [facility] (Rec: 07/13/18 16:42 [facility] [email or web address]) Therapeutic Exercises Supine Exercises 5 Supine Exercise Name happy baby 4 Supine Exercise Name foam roll stretch 1 Supine Exercise Name TA with marches Comments with pelvic floor pain today so we stopped Prone Exercises 1 Prone Exercise Name opp arm and leg lifts Other Exercises 5 Other Exercise Name seated and supine sidebend stretch for the QL 4 Other Exercise Name quadraped cat cow, sidebends Manual Therapy Treatment Soft Tissue Mobilization 5 Body Location right quadratus lumborum release 3 Body Location posterior gluteal and QL release Body Position Prone 2 Body Location thoracic and lumbar paraspinals PT-OP-R Modalities Start: 10/13/17 18:06 Freq: Status: Active Protocol: Document 04/27/18 15:15 [facility] (Rec: 04/28/18 12:00 [facility] [email or web address]) Ultrasound Therapy Treatment right quadratus lumborum Treatment Duration (minutes) 8 Patient Position Prone Coupling Medium Ultrasound Gel Applicator Size (cm2) 5 Mode Setting Continuous Duty Cycle 100% PT-OP-T Assessment and Plan Start: 09/30/17 10:13 Freq: Status: Active Protocol: Document 07/13/18 16:35 [facility] (Rec: 07/13/18 16:42 [facility] [email or web address]) Physical Therapy Assessment Assessment Summary Assessment Breanne swam every day in [place] and this seemed to really help her. We discussed returning to swimming but also trying opposite arm and leg lift as a stabilization exercise Physical Therapy Plan Frequency and Duration Frequency of Treatment 2x/Week Duration of Treatment 8 Plan of Care Start Date 06/22/18 Plan of Care End Date 08/17/18 Therapeutic Interventions Therapeutic Interventions Home Exercise Program Joint Mobilizations Manual Therapy Neuromuscular Re-education Patient/Caregiver Education Self-Care/Home Management Soft Tissue Mobilization Therapeutic Exercises Modalities Ultrasound Next Visit Focus/Plan Next Note Type Treatment Note Next Visit Plan begin increasing stabilization exercises as tolerated
--- NOTE | 2018-07-18 14:52 | PT.OTN ---
Current Diagnoses Strain of muscle, fascia and tendon at neck level, initial encounter (07/15/18) Sprain of ligaments of lumbar spine, initial encounter (07/15/18) Physical Therapy Treatment Note PT-OP-A Visit Information Start: 09/30/17 09:57 Freq: Status: Active Protocol: Document 07/15/18 15:15 [facility] (Rec: 07/18/18 14:52 [facility] [email or web address]) Out-Patient Physical Therapy Visit Information Visit Information Visit Type Treatment Note Visit Start Time 15:15 Visit Stop Time 16:00 Total Visit Minutes 45 Visit Number 3 Number of DRY PAN CHARGER Visits 0 Evaluation Information Evaluation Date 09/29/17 PT-OP-B Current Condition Start: 09/30/17 10:00 Freq: Status: Active Protocol: Document 09/30/17 10:00 [facility] (Rec: 09/30/17 10:13 [facility] [email or web address]) Current Condition History of Current Condition Onset Date 07/06/17 Current Complaints c/o sharp left sided pubic pain that occurs with sit- stand activities History of Current Condition Per patient report 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 She began having neck and back discomfort and she sought out care for these issues. The pubic bone pain came on slowly and was not addressed in PT or chiropractic. With PT, massage and child care aide her neck and back pain have diminished however her pubic bone symptoms are worsening and now she notes her left side of the pubic bone region aches all the time when sitting and is a sharp pain when she goes to stand. She also notes pain in the left buttock region. Breanne initially thought she had a bladder infection because of the pain in the pubic region but tests for this are negative. Prior Treatments and Tests Xrays are negative for any fractures Treatment Goals Patient/Caregiver Goals Serge's goals include eliminating her pain in the left buttock and pubic bone and that she is able to sit and perform sit to stand activities without pain. Prior Functional Status Baseline Function- ADL's Independent Baseline Function- Mobility Independent Current Functional Impairments (Reported) Functional Limitations- Other pain with sitting and pain with sit-stand activities PT-OP-C Subjective Start: 09/30/17 10:00 Freq: Status: Active Protocol: Document 07/15/18 15:15 [facility] (Rec: 07/18/18 14:52 [facility] [email or web address]) OP-PT Subjective Patient Comments Patient Comments Breanne describes a dull pain in the pubic bone. She has been working on her exercises PT-OP-J Posture/Palpation/Skin Start: 09/30/17 10:13 Freq: Status: Active Protocol: Document 06/22/18 14:30 [facility] (Rec: 06/23/18 10:29 [facility] [email or web address]) Palpation Assessment Location Five Palpation Location right piriformis and gluteals Palpation Findings Soft Tissue Tightness Tenderness Four Palpation Location left gluteals and piriformis Palpation Findings Soft Tissue Tightness Three Palpation Location left sacral AWILDA and Left PSIS, right sacral base Palpation Findings Tenderness Palpation Details tenderness to palpation is decreased at this time and the sacrum is in good alignement today. Two Palpation Location left adductos Palpation Details some residual guarding still present One Palpation Location pubic bone left side Palpation Details tenderness to palpation PT-OP-K Range of Motion Start: 09/30/17 10:13 Freq: Status: Active Protocol: Document 09/30/17 10:14 [facility] (Rec: 09/30/17 10:48 [facility] [email or web address]) Lumbar Spine Range of Motion Lumbar Spine Active Comments lumbar spine ROM is WFL in standing PT-OP-L Special Tests Start: 09/30/17 10:13 Freq: Status: Active Protocol: Document 03/09/18 14:29 [facility] (Rec: 03/09/18 14:30 [facility] [email or web address]) Special Tests Other Special Tests Special Tests + ASLR left for the left side, left pubic upslip, left out flare PT-OP-Q Treatments Start: 09/30/17 10:13 Freq: Status: Active Protocol: Document 07/15/18 15:15 [facility] (Rec: 07/18/18 14:52 [facility] [email or web address]) Therapeutic Exercises Supine Exercises 5 Supine Exercise Name happy baby 3 Supine Exercise Name supine sidebend stretch Prone Exercises 1 Prone Exercise Name opp arm and leg lifts Other Exercises 4 Other Exercise Name quadraped cat cow, sidebends 2 Other Exercise Name TA with opp arm and opp leg lifts 1 Other Exercise Name quadraped TA facilitation with breath work Manual Therapy Treatment Soft Tissue Mobilization 5 Body Location right quadratus lumborum release 3 Body Location posterior gluteal and QL release Body Position Prone 2 Body Location thoracic and lumbar paraspinals PT-OP-R Modalities Start: 10/13/17 18:06 Freq: Status: Active Protocol: Document 04/27/18 15:15 [facility] (Rec: 04/28/18 12:00 [facility] [email or web address]) Ultrasound Therapy Treatment right quadratus lumborum Treatment Duration (minutes) 8 Patient Position Prone Coupling Medium Ultrasound Gel Applicator Size (cm2) 5 Mode Setting Continuous Duty Cycle 100% PT-OP-T Assessment and Plan Start: 09/30/17 10:13 Freq: Status: Active Protocol: Document 07/15/18 15:15 [facility] (Rec: 07/18/18 14:52 [facility] [email or web address]) Physical Therapy Assessment Assessment Summary Assessment Tolerating prone opp arm and legs, still tight in the right QL as compared to the left but equal leg length today Physical Therapy Plan Frequency and Duration Frequency of Treatment 2x/Week Duration of Treatment 8 Plan of Care Start Date 06/22/18 Plan of Care End Date 08/17/18 Therapeutic Interventions Therapeutic Interventions Home Exercise Program Joint Mobilizations Manual Therapy Neuromuscular Re-education Patient/Caregiver Education Self-Care/Home Management Soft Tissue Mobilization Therapeutic Exercises Modalities Ultrasound Next Visit Focus/Plan Next Note Type Treatment Note Next Visit Plan continue to work on increased SI stabilization as Markay can tolerate without pubic pain or pelvic floor spasm
--- NOTE | 2018-07-21 09:44 | PT.OTN ---
Current Diagnoses Strain of muscle, fascia and tendon at neck level, initial encounter (07/20/18) Sprain of ligaments of lumbar spine, initial encounter (07/20/18) Physical Therapy Treatment Note PT-OP-A Visit Information Start: 09/30/17 09:57 Freq: Status: Active Protocol: Document 07/20/18 15:15 [facility] (Rec: 07/21/18 09:44 [facility] [email or web address]) Out-Patient Physical Therapy Visit Information Visit Information Visit Type Treatment Note Visit Start Time 15:15 Visit Stop Time 16:00 Total Visit Minutes 45 Visit Number 4 Number of RETAIL MARKETING MANAGER Visits 0 Evaluation Information Evaluation Date 09/29/17 PT-OP-B Current Condition Start: 09/30/17 10:00 Freq: Status: Active Protocol: Document 09/30/17 10:00 [facility] (Rec: 09/30/17 10:13 [facility] [email or web address]) Current Condition History of Current Condition Onset Date 07/06/17 Current Complaints c/o sharp left sided pubic pain that occurs with sit- stand activities History of Current Condition Per patient report 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 She began having neck and back discomfort and she sought out care for these issues. The pubic bone pain came on slowly and was not addressed in PT or chiropractic. With PT, massage and day care provider her neck and back pain have diminished however her pubic bone symptoms are worsening and now she notes her left side of the pubic bone region aches all the time when sitting and is a sharp pain when she goes to stand. She also notes pain in the left buttock region. Breanne initially thought she had a bladder infection because of the pain in the pubic region but tests for this are negative. Prior Treatments and Tests Xrays are negative for any fractures Treatment Goals Patient/Caregiver Goals Serge's goals include eliminating her pain in the left buttock and pubic bone and that she is able to sit and perform sit to stand activities without pain. Prior Functional Status Baseline Function- ADL's Independent Baseline Function- Mobility Independent Current Functional Impairments (Reported) Functional Limitations- Other pain with sitting and pain with sit-stand activities PT-OP-C Subjective Start: 09/30/17 10:00 Freq: Status: Active Protocol: Document 07/20/18 15:15 [facility] (Rec: 07/21/18 09:44 [facility] [email or web address]) OP-PT Subjective Patient Comments Patient Comments Breanne reports sheh as been working on redoing her kitchen . SHe has been taking out ainsley and was trying hard to use a squat position to keep her pelvis stable. She was fine while squatting but later in the day yesterday started feeling pain in the left side of the pubic bone and describes feeling like she was broken She went to bed and woke up feeling a little better but has muscle spasms and guarding of the pelvic floor and pain when transfering from sit-stand and initially with walking PT-OP-J Posture/Palpation/Skin Start: 09/30/17 10:13 Freq: Status: Active Protocol: Document 06/22/18 14:30 [facility] (Rec: 06/23/18 10:29 [facility] [email or web address]) Palpation Assessment Location Five Palpation Location right piriformis and gluteals Palpation Findings Soft Tissue Tightness Tenderness Four Palpation Location left gluteals and piriformis Palpation Findings Soft Tissue Tightness Three Palpation Location left sacral AWILDA and Left PSIS, right sacral base Palpation Findings Tenderness Palpation Details tenderness to palpation is decreased at this time and the sacrum is in good alignement today. Two Palpation Location left adductos Palpation Details some residual guarding still present One Palpation Location pubic bone left side Palpation Details tenderness to palpation PT-OP-K Range of Motion Start: 09/30/17 10:13 Freq: Status: Active Protocol: Document 09/30/17 10:14 [facility] (Rec: 09/30/17 10:48 [facility] [email or web address]) Lumbar Spine Range of Motion Lumbar Spine Active Comments lumbar spine ROM is WFL in standing PT-OP-L Special Tests Start: 09/30/17 10:13 Freq: Status: Active Protocol: Document 03/09/18 14:29 [facility] (Rec: 03/09/18 14:30 [facility] [email or web address]) Special Tests Other Special Tests Special Tests + ASLR left for the left side, left pubic upslip, left out flare PT-OP-Q Treatments Start: 09/30/17 10:13 Freq: Status: Active Protocol: Document 07/20/18 15:15 [facility] (Rec: 07/21/18 09:44 [facility] [email or web address]) Therapeutic Exercises Supine Exercises 7 Supine Exercise Name bilateral adductor squeeze 5 Supine Exercise Name happy baby Manual Therapy Treatment Soft Tissue Mobilization 4 Body Location pelvic diaphragm MFR technique 3 Body Location posterior gluteal and QL release Body Position Prone 2 Body Location thoracic and lumbar paraspinals 1 Body Location B adductor release Body Position Supine Comments manual adductor stretching PT-OP-R Modalities Start: 10/13/17 18:06 Freq: Status: Active Protocol: Document 04/27/18 15:15 [facility] (Rec: 04/28/18 12:00 [facility] [email or web address]) Ultrasound Therapy Treatment right quadratus lumborum Treatment Duration (minutes) 8 Patient Position Prone Coupling Medium Ultrasound Gel Applicator Size (cm2) 5 Mode Setting Continuous Duty Cycle 100% PT-OP-T Assessment and Plan Start: 09/30/17 10:13 Freq: Status: Active Protocol: Document 07/20/18 15:15 [facility] (Rec: 07/21/18 09:44 [facility] [email or web address]) Physical Therapy Assessment Assessment Summary Assessment Pubic symphysis appears to be slightly seperated. Pain in the middle of the pubic symphysis. Equal leg length. I advised Breanne to wear her SI belt and or compression shorts. I still feel like her SI joint is compromised and she may benefit from prolotherapy. I did work on releasing all the muscle guarding today of adductors, pelvic floor, and QL region. She was still sore in her pubic bone following treatment today Physical Therapy Plan Frequency and Duration Frequency of Treatment 2x/Week Duration of Treatment 8 Plan of Care Start Date 06/22/18 Plan of Care End Date 08/17/18 Next Visit Focus/Plan Next Note Type Treatment Note Next Visit Plan Work on SI stabilization as Breanne is able to tolerate
--- NOTE | 2018-07-27 17:30 | PT.OTN ---
Current Diagnoses Strain of muscle, fascia and tendon at neck level, initial encounter (07/27/18) Sprain of ligaments of lumbar spine, initial encounter (07/27/18) Physical Therapy Treatment Note PT-OP-A Visit Information Start: 09/30/17 09:57 Freq: Status: Active Protocol: Document 07/27/18 17:22 [facility] (Rec: 07/27/18 17:30 [facility] [email or web address]) Out-Patient Physical Therapy Visit Information Visit Information Visit Type Treatment Note Visit Start Time 15:15 Visit Stop Time 16:00 Total Visit Minutes 45 Visit Number 5 Number of FITTING ROOM INSPECTOR Visits 0 Evaluation Information Evaluation Date 09/29/17 PT-OP-B Current Condition Start: 09/30/17 10:00 Freq: Status: Active Protocol: Document 09/30/17 10:00 [facility] (Rec: 09/30/17 10:13 [facility] [email or web address]) Current Condition History of Current Condition Onset Date 07/06/17 Current Complaints c/o sharp left sided pubic pain that occurs with sit- stand activities History of Current Condition Per patient report 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 She began having neck and back discomfort and she sought out care for these issues. The pubic bone pain came on slowly and was not addressed in PT or chiropractic. With PT, massage and coronary care unit nurse her neck and back pain have diminished however her pubic bone symptoms are worsening and now she notes her left side of the pubic bone region aches all the time when sitting and is a sharp pain when she goes to stand. She also notes pain in the left buttock region. Breanne initially thought she had a bladder infection because of the pain in the pubic region but tests for this are negative. Prior Treatments and Tests Xrays are negative for any fractures Treatment Goals Patient/Caregiver Goals Serge's goals include eliminating her pain in the left buttock and pubic bone and that she is able to sit and perform sit to stand activities without pain. Prior Functional Status Baseline Function- ADL's Independent Baseline Function- Mobility Independent Current Functional Impairments (Reported) Functional Limitations- Other pain with sitting and pain with sit-stand activities PT-OP-C Subjective Start: 09/30/17 10:00 Freq: Status: Active Protocol: Document 07/27/18 17:22 [facility] (Rec: 07/27/18 17:30 [facility] [email or web address]) OP-PT Subjective Patient Comments Patient Comments Breanne reports she feels as if her symptoms are not getting any better. She would like to hold on PT and finish out her acupuncture and then make a decision on prolotherapy PT-OP-J Posture/Palpation/Skin Start: 09/30/17 10:13 Freq: Status: Active Protocol: Document 06/22/18 14:30 [facility] (Rec: 06/23/18 10:29 [facility] [email or web address]) Palpation Assessment Location Five Palpation Location right piriformis and gluteals Palpation Findings Soft Tissue Tightness Tenderness Four Palpation Location left gluteals and piriformis Palpation Findings Soft Tissue Tightness Three Palpation Location left sacral AWILDA and Left PSIS, right sacral base Palpation Findings Tenderness Palpation Details tenderness to palpation is decreased at this time and the sacrum is in good alignement today. Two Palpation Location left adductos Palpation Details some residual guarding still present One Palpation Location pubic bone left side Palpation Details tenderness to palpation PT-OP-K Range of Motion Start: 09/30/17 10:13 Freq: Status: Active Protocol: Document 09/30/17 10:14 [facility] (Rec: 09/30/17 10:48 [facility] [email or web address]) Lumbar Spine Range of Motion Lumbar Spine Active Comments lumbar spine ROM is WFL in standing PT-OP-L Special Tests Start: 09/30/17 10:13 Freq: Status: Active Protocol: Document 03/09/18 14:29 [facility] (Rec: 03/09/18 14:30 [facility] [email or web address]) Special Tests Other Special Tests Special Tests + ASLR left for the left side, left pubic upslip, left out flare PT-OP-Q Treatments Start: 09/30/17 10:13 Freq: Status: Active Protocol: Document 07/27/18 17:22 [facility] (Rec: 07/27/18 17:30 [facility] [email or web address]) Therapeutic Exercises Supine Exercises 7 Supine Exercise Name bilateral adductor squeeze Reps/Minutes x 10 reps Sidelying Exercises 1 Sidelying Exercise Name clam shells Reps/Minutes 3 x 10 reps Manual Therapy Treatment Soft Tissue Mobilization 5 Body Location right quadratus lumborum release 3 Body Location posterior gluteal and QL release Body Position Prone 2 Body Location thoracic and lumbar paraspinals Manual Techniques 1 Type right LE distraction PT-OP-R Modalities Start: 10/13/17 18:06 Freq: Status: Active Protocol: Document 04/27/18 15:15 [facility] (Rec: 04/28/18 12:00 [facility] [email or web address]) Ultrasound Therapy Treatment right quadratus lumborum Treatment Duration (minutes) 8 Patient Position Prone Coupling Medium Ultrasound Gel Applicator Size (cm2) 5 Mode Setting Continuous Duty Cycle 100% PT-OP-T Assessment and Plan Start: 09/30/17 10:13 Freq: Status: Active Protocol: Document 07/27/18 17:22 [facility] (Rec: 07/27/18 17:30 [facility] [email or web address]) Physical Therapy Assessment Assessment Summary Assessment At this point Breanne is unable to facilitate her pelvic floor or transverse abdominal muscles without pain and muscle guarding. She remains tight in the Quadratus lumborum and gluteal region. It does seem that the two times she has made progress was when she was doing a lot of swimming for a period of time. I talked with her about trying swimming again to activate the multifid musculature. She will contine with her acupuncture at this time and hold off on PT. I am happy to continue tx following acupuncture if she is able to return to stabilizing execises without muscle guarding and pain Physical Therapy Plan Frequency and Duration Frequency of Treatment 2x/Week Duration of Treatment 8 Plan of Care Start Date 06/22/18 Plan of Care End Date 08/17/18 Therapeutic Interventions Therapeutic Interventions Home Exercise Program Joint Mobilizations Manual Therapy Neuromuscular Re-education Patient/Caregiver Education Self-Care/Home Management Soft Tissue Mobilization Therapeutic Exercises Modalities Ultrasound Hold Physical Therapy Reason For Hold hold PT while Breanne under goes acupuncture due to continued muscle guarding and pain
--- NOTE | 2019-05-26 14:40 | PT.OPDS ---
Current Diagnoses Strain of muscle, fascia and tendon at neck level, initial encounter (07/27/18) Sprain of ligaments of lumbar spine, initial encounter (07/27/18) Visit Care Team Role Provider Type Mee Licona MD Attending Provider Physician Primary Care Provider Specialty: Physical Medicine and Rehab Address: [address] [place] [address], [id number] Email: [email or web address] Visit Number Visit Number 5 Discharge Summary PT-OP-B Current Condition Start: 09/30/17 10:00 Freq: Status: Active Protocol: Document 09/30/17 10:00 [facility] (Rec: 09/30/17 10:13 [facility] [email or web address]) Current Condition History of Current Condition Onset Date 07/06/17 Current Complaints c/o sharp left sided pubic pain that occurs with sit- stand activities History of Current Condition Per patient report 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 She began having neck and back discomfort and she sought out care for these issues. The pubic bone pain came on slowly and was not addressed in PT or chiropractic. With PT, massage and intensive care unit nurse her neck and back pain have diminished however her pubic bone symptoms are worsening and now she notes her left side of the pubic bone region aches all the time when sitting and is a sharp pain when she goes to stand. She also notes pain in the left buttock region. Breanne initially thought she had a bladder infection because of the pain in the pubic region but tests for this are negative. Prior Treatments and Tests Xrays are negative for any fractures Treatment Goals Patient/Caregiver Goals Serge's goals include eliminating her pain in the left buttock and pubic bone and that she is able to sit and perform sit to stand activities without pain. Prior Functional Status Baseline Function- ADL's Independent Baseline Function- Mobility Independent Current Functional Impairments (Reported) Functional Limitations- Other pain with sitting and pain with sit-stand activities PT-OP-C Subjective Start: 09/30/17 10:00 Freq: Status: Active Protocol: Document 07/27/18 17:22 [facility] (Rec: 03/05/19 17:30 [facility] [email or web address]) OP-PT Subjective Patient Comments Patient Comments Breanne reports she feels as if her symptoms are not getting any better. She would like to hold on PT and finish out her acupuncture and then make a decision on prolotherapy PT-OP-J Posture/Palpation/Skin Start: 09/30/17 10:13 Freq: Status: Active Protocol: Document 06/22/18 14:30 [facility] (Rec: 06/23/18 10:29 [facility] [email or web address]) Palpation Assessment Location Five Palpation Location right piriformis and gluteals Palpation Findings Soft Tissue Tightness, Tenderness Four Palpation Location left gluteals and piriformis Palpation Findings Soft Tissue Tightness Three Palpation Location left sacral AWILDA and Left PSIS, right sacral base Palpation Findings Tenderness Palpation Details tenderness to palpation is decreased at this time and the sacrum is in good alignement today. Two Palpation Location left adductos Palpation Details some residual guarding still present One Palpation Location pubic bone left side Palpation Details tenderness to palpation PT-OP-K Range of Motion Start: 09/30/17 10:13 Freq: Status: Active Protocol: Document 09/30/17 10:14 [facility] (Rec: 09/30/17 10:48 [facility] [email or web address]) Lumbar Spine Range of Motion Lumbar Spine Active Comments lumbar spine ROM is WFL in standing PT-OP-L Special Tests Start: 09/30/17 10:13 Freq: Status: Active Protocol: Document 03/09/18 14:29 [facility] (Rec: 03/09/18 14:30 [facility] [email or web address]) Special Tests Other Special Tests Special Tests + ASLR left for the left side, left pubic upslip, left out flare PT-OP-T Assessment and Plan Start: 09/30/17 10:13 Freq: Status: Active Protocol: Document 05/26/19 14:39 [facility] (Rec: 05/26/19 14:40 [facility] [email or web address]) Physical Therapy Plan Discharge Physical Therapy Discharge Reasons Plateau in Progress Discharge Comments Pt was trying other therapys as she was still experiencing pain despite efforts in PT
== END 2018-07-28 12:06 ==
LOC: PHYS 15:15
PROVIDERS: PCP Physical Medicine & Rehabilitation; Visit Provider Physical Medicine & Rehabilitation
DX: S33.5XXA Sprain of ligaments of lumbar spine, initial encounter (principal); S16.1XXA Strain of muscle, fascia and tendon at neck level, initial encounter
CPT/HCPCS: 97035; 97110; 97140; 97161; 97164; 97530

== ENCOUNTER → 2019-06-21 16:44 | Outpatient (CLI) | payer MEDICARE, SELFPAY ==
--- NOTE | 2019-06-21 | DI.MG.S_ITS ---
UNILATERAL RIGHT DIGITAL SCREENING MAMMOGRAM 3D/2D WITH CAD POST MASTECTOMY: 06/21/2019 CLINICAL: Routine screening. Personal history of left breast cancer. Family history of breast cancer. Comparison is made to exams dated: 04/26/2018 mammogram - [facility], 04/22/2017 mammogram, and 04/04/2016 mammogram - [facility]. There are scattered fibroglandular elements in right breast. Current study was also evaluated with a Computer Aided Detection (CAD) system. No significant masses, calcifications, or other findings are seen in the breast. There has been no significant interval change. IMPRESSION: NEGATIVE There is no mammographic evidence of malignancy. A 1 year screening mammogram is recommended. This exam was interpreted at Station ID: [id number]. NOTE: For mammograms, a report in lay terms will be sent to the patient. Approximately 15% of breast malignancies will not be visualized mammographically. In the management of a palpable breast mass, a negative mammogram must not discourage biopsy of a clinically suspicious lesion. Electronically Signed By: Henok valencia/traci:06/21/2019 17:57:33 letter sent: Normal Exam ACR BI-RADS Category 1: Negative [id number]
== END ==
PROVIDERS: Visit Provider Internal Medicine
DX: Z12.31 Encounter for screening mammogram for malignant neoplasm of breast (principal); Z85.3 Personal history of malignant neoplasm of breast; Z80.3 Family history of malignant neoplasm of breast
CPT/HCPCS: 77063; 77067

== ENCOUNTER → 2019-06-24 15:09 | Outpatient (CLI) | payer MEDICARE, OTHER, SELFPAY | PROVIDERS: Visit Provider Internal Medicine | DX: M85.852 Other specified disorders of bone density and structure, left thigh (principal); Z78.0 Asymptomatic menopausal state; Z85.3 Personal history of malignant neoplasm of breast | CPT/HCPCS: 77080 ==

== ENCOUNTER → 2019-07-07 16:53 | Outpatient (CLI) | payer OTHER, SELFPAY ==
--- NOTE | 2019-07-07 | DI.MRI.S_ITS ---
PROCEDURE: MR LUMBAR SPINE WO CON INDICATIONS: LOW BACK PAIN TECHNIQUE: Noncontrast sagittal T1 spin echo and T2 fast echo, sagittal STIR, axial T1 and T2 fast spin echo through the lumbar spine. In cases with scoliosis, additional coronal T2 fast spin echo may be performed. COMPARISON: [facility], CR, XR LUMBAR SPINE 2-3V, 09/22/2017, 9:48. None. FINDINGS: Image quality: Excellent. Alignment and Curvature: Mild dextroconvex scoliotic curvature is seen. Mild grade 1 anterolisthesis is seen at the L4-L5 level. Associated pars defects are not seen on these images. Bone Marrow: Marrow is of normal overall signal. No acute vertebral body compression fractures. Fatty metaplasia can be seen involving the sacrum. Scattered foci are seen, which are hyperintense on T1-weighted and T2-weighted imaging, which are most consistent with benign vertebral body hemangiomas. Spinal Cord: Conus medullaris terminates at the T12-L1 level. Visualized cord demonstrates normal signal and size. Paraspinous Soft Tissues: No paravertebral masses. T12-L1: Normal appearance. L1-L2: Normal appearance. L2-L3: Normal appearance. L3-L4: The disc height and disc signal are relatively well-preserved moderate disc bulge is seen, which is eccentric to the right. Moderate facet joint hypertrophy is seen. There is mild right-sided and moderate left-sided neural foraminal narrowing seen. No significant central canal narrowing is seen. L4-L5: The disc height is well-preserved. Loss of disc signal is seen at this level. Mild to moderate disc bulge is seen. Moderate to prominent facet hypertrophy is seen. There is moderate to severe bilateral neural foraminal narrowing seen. L1 compression can be seen upon the exiting L4 nerve roots. Moderate central canal narrowing is seen. L5-S1: There is at least moderate loss of disc height and disc signal seen. Moderate generalized disc bulge is seen. Moderate facet joint hypertrophy is seen. At least moderate bilateral neural foraminal narrowing can be seen. There is a mild degree of compression seen upon the exiting nerve roots, right worse than left. Mild central canal narrowing is seen. IMPRESSION: Focal lower lumbar spine degenerative changes are seen, which are overall most prominent at the L4-L5 level. Dictated by: Marshall Blunt M.D. on 07/07/2019 at 17:38 Approved by: Marshall Blunt M.D. on 07/07/2019 at 17:42
== END ==
PROVIDERS: PCP Internal Medicine; Referring Provider Physical Medicine & Rehabilitation Pain Medicine; Visit Provider Physical Medicine & Rehabilitation Pain Medicine
DX: M54.5 Low back pain (principal); M47.816 Spondylosis without myelopathy or radiculopathy, lumbar region
CPT/HCPCS: 72148

== ENCOUNTER → 2019-12-05 10:46 | Outpatient (CLI) | payer MEDICARE, OTHER, SELFPAY ==
--- NOTE | 2019-12-05 10:49 | DI.RAD.S_ITS ---
PROCEDURE: XR FOOT LT MIN 3V INDICATIONS: Pain TECHNIQUE: 3 views of the foot were acquired. COMPARISON: None. FINDINGS: Bones: No fractures or dislocations. No suspicious bony lesions. Soft tissues: No tibiotalar joint effusion. Achilles tendon appears normal. IMPRESSION: No osseous trauma found. No sign of stress fracture or stress reaction. Dictated by: Ruperto Phillips M.D. on 12/05/2019 at 11:23 Approved by: Ruperto Phillips M.D. on 12/05/2019 at 11:24
--- NOTE | 2019-12-05 10:49 | DI.RAD.S_ITS ---
PROCEDURE: XR ANKLE LT MIN 3V INDICATIONS: bruising and pain after fall TECHNIQUE: 3 views of the ankle were acquired. COMPARISON: None. FINDINGS: Bones: No fractures or dislocations. Ankle mortise is normally aligned. No suspicious bony lesions. Soft tissues: No tibiotalar joint effusion. Achilles tendon appears normal. IMPRESSION: No osseous trauma found. Dictated by: Ruperto Phillips M.D. on 12/05/2019 at 11:15 Approved by: Ruperto Phillips M.D. on 12/05/2019 at 11:16
== END ==
PROVIDERS: PCP Internal Medicine; Referring Provider Student in an Organized Health Care Education/Training Program; Visit Provider Student in an Organized Health Care Education/Training Program
DX: M25.572 Pain in left ankle and joints of left foot (principal); S90.02XA Contusion of left ankle, initial encounter; W19.XXXA Unspecified fall, initial encounter
CPT/HCPCS: 73610; 73630

== ENCOUNTER 2020-04-05 10:30 | Outpatient (RCR) | payer OTHER, SELFPAY ==
--- NOTE | 2020-01-18 15:24 | PT.OIE ---
Current Diagnoses Osteomyelitis, unspecified (01/18/20) Visit Care Team Role Provider Type Jayleen Crabtree MD Primary Care Provider Non-Staff Specialty: Internal Medicine Address: [address] [place] [address], [id number] Email: [email or web address] Sathish Craig MD Attending Provider Physician Referring Provider Specialty: Orthopedic Surgery Address: [address] [place] [address], [id number] Email: [email or web address] Physical Therapy Initial Evaluation PT-OP-A Visit Information Start: 01/11/20 12:48 Freq: Status: Active Protocol: Document 01/11/20 13:37 [facility] (Rec: 01/12/20 13:40 [facility] [email or web address]) Out-Patient Physical Therapy Visit Information Visit Information Visit Type Initial Evaluation Visit Start Time 12:45 Visit Stop Time 13:30 Total Visit Minutes 45 Visit Number 1 Evaluation Information Evaluation Date 01/11/20 PT-OP-B Current Condition Start: 01/11/20 12:48 Freq: Status: Active Protocol: Document 01/11/20 12:48 [facility] (Rec: 01/11/20 13:01 [facility] [id number]) Current Condition History of Current Condition Current Complaints sharp pain in her pubic bone History of Current Condition has anew bill checker dr. Jonas. Dr. Jonas wanted to treat her back, he sent her to doctor juan david. He did a steriod shot in her pubic bone and it didn' t help, for 2 days it helped but then things got bad again. She feels like pain has gotten worse. Now she has left sided pelvic floor, mostly in the left groin region and at the pubic bone. Under the joint and at the bottem. The pelvic floor pain had gone away but now afer the cortsione injection she has had constant pain midline pubic bone. Now pain wakes her up at night. Still trying to do some of the stabilization exercises but she feels very guarded in her pelvic floor. Past medical history includes history of breast cancer, back pain, osteopenia Treatment Goals Patient/Caregiver Goals Pt's goals are to reduce pain and to be able to continue being active. Prior Functional Status Baseline Function- ADL's Independent Baseline Function- Mobility Independent Current Functional Impairments (Reported) Functional Limitations- ADL's Pain with sitting in the pelvic floor region Functional Limitations- Mobility/Gait pain increased with walking and movements such as sit to stand. Uneven movements such as stepping up a big step cause pain into the pubic region. Functional Limitations- Recreation/ limited with recreational Hobbies activies due to pain in the pubic bone PT-OP-C Subjective Start: 01/11/20 12:48 Freq: Status: Active Protocol: Document 01/18/20 14:56 [facility] (Rec: 01/18/20 14:57 [facility] [id number]) Patient Questionnaires Pelvic Pain and Urgency/Frequency Patient Symptom Scale Pelvic Pain Score 12 OP-PT Pain Assessment Location Left Groin Pain Location Details left pubic bone Intensity 3 Scale Used Numeric (0 - 10) PT-OP-I Pelvic Floor Start: 01/11/20 12:48 Freq: Status: Active Protocol: Document 01/11/20 12:45 [facility] (Rec: 01/18/20 15:03 [facility] [id number]) Pelvic Floor Assessment Pelvic Clock Pelvic Clock 6-9 Guarding,Tenderness Pelvic Clock 9-12 Guarding,Tenderness Pelvic Clock Other pain at the transverse perineal musculatre on the left , this reproduces the pain that Breanne reports stopped her from having intercourse Comments Pelvic Floor Comments pt is able to contract all areas of the pelvic floor and levator ani musculature however she has difficutly with relaxation following contraction. PT-OP-J Posture/Palpation/Skin Start: 01/11/20 12:48 Freq: Status: Active Protocol: Document 01/11/20 12:45 [facility] (Rec: 01/18/20 14:59 [facility] [id number]) Palpation Assessment Location Five Palpation Location right piriformis and gluteals Palpation Findings Soft Tissue Tightness, Tenderness Four Palpation Location left gluteals and piriformis Palpation Findings Soft Tissue Tightness Three Palpation Location left sacral AWILDA and Left PSIS, right sacral base Palpation Findings Tenderness Two Palpation Location left adductos Palpation Findings Muscle Guarding,Tenderness Palpation Details guarding of the adductors One Palpation Location pubic bone left side Palpation Details tenderness to palpation PT-OP-M Strength Start: 01/11/20 12:48 Freq: Status: Active Protocol: Document 01/11/20 12:45 [facility] (Rec: 01/18/20 15:04 [facility] [id number]) Trunk Strength Trunk Manual Muscle Testing Core Stabilization + ASLR test on the right for left side unlocking of the SI joint. The transverse abodominal muscle is contraction however the SI is still not fully supported due to ligamentous instability at the pubic bone PT-OP-Q Treatments Start: 01/11/20 12:48 Freq: Status: Active Protocol: Document 01/11/20 12:45 [facility] (Rec: 01/18/20 15:05 [facility] [id number]) Manual Therapy Treatment Soft Tissue Mobilization 1 Body Location MFR of the deep levator ani musculature 3-6 and 6-9 on the pelvic clock Mobilization Type Manual Lymphatic Drainage Self-Care/Home Management Treatment Education Patient Education Home Exercise Program Other Education pt educated on use of a dilator for trigger point release in the pelvic floor muscles, posterior lateral wall of the levator ani PT-OP-T Assessment and Plan Start: 01/11/20 12:48 Freq: Status: Active Protocol: Document 01/11/20 12:45 [facility] (Rec: 01/18/20 15:22 [facility] [id number]) Physical Therapy Assessment Rehab Potential Rehabilitation Potential Excellent Evaluation Complexity Number of Personal Factors/Comorbidities 0 Number of Body Systems Impaired 1-2 Clinical Presentation at Evaluation Stable Impairments Impairments Activity Tolerance,Pain,Soft Tissue Mobility,Tone Goals Three Impairment Transverse perineal and levator ani guarding and spasm Group Home Goal (LTG) Breanne is able to fully relax her pelvic floor at rest and there is a overall decrease in levator ani guarding in the pelvic clock and transverse perineal muscle Two Impairment muscle guarding and spasm of bilateral adductors Short Term Goal (STG) With manual therapy techniques and stretching there is no longer spasm and tenderness to palpation of the adductor musculature STG Duration 4 weeks One Impairment pain at the pubic bone and pelvic floor with sitting and sit-stand Group Home Goal (LTG) Breanne reports no pain in sitting and is able to transfer from sit-stand without pain LTG Duration 8 weeks Assessment Summary Assessment Breanne returns to PT today with continued pain at her pubic bone. She describes a flare up of her symptoms this past year and underwent a cortisone injection at the pubic symphysis. This really seemed to aggravate her and make her symptoms worse. At this point she is describing pain at the pubic bone as well as spasms in her pelvic floor area making it difficult to sit at times. I had worked with her a few yeas ago after her initial fall and felt that prolotherapy would be beneficial for her as the pubic bone and SI joint still seemed to be unlocking with activity. I had also felt that possibly relaxing her pelvic floor muscles with manual therapy techniques might also be helpful. Breanne is wanting to try pelvic floor release now as she feels her pelvic floor is in spasm. With examination today of her pelvic floor her left Transverse Perineum is very tender and has trigger points throughout it. She is also tight and guarded in her deep levator ani musculature with tightness from 3-6 and 6- 9 on the pelvic clock. She has difficulty relaxing her pelvic floor following a contraction. I did educate Breanne on use of a dilator today to help her with doing trigger point massage work on her own as well as we reviewed stretches for her pelvic floor that would be helpful. I have encouraged her to return to wearing her SI belt while she is flared up. She may also benefit from a prolotherapy consult to help stabilize her pubic joint so her muscles don't have to guard to try and stabilize it. Physical Therapy Plan Frequency and Duration Frequency of Treatment 2x/Week Duration of Treatment 8 Plan of Care Start Date 01/11/20 Plan of Care End Date 03/21/20 Therapeutic Interventions Therapeutic Interventions Home Exercise Program,Manual Therapy,Patient/Caregiver Education,Self-Care/Home Management,Soft Tissue Mobilization,Therapeutic Exercises Modalities Biofeedback Next Visit Focus/Plan Next Note Type Treatment Note Next Visit Plan Begin MFR for the superficial and deep pelvic floor muscles
--- NOTE | 2020-01-18 15:25 | PT.OPPOC ---
Physical, Occupational & Speech Therapy At [facility] Current Diagnoses Osteomyelitis, unspecified (01/18/20) Visit Care Team Role Provider Type Jayleen Crabtree MD Primary Care Provider Non-Staff Specialty: Internal Medicine Address: [address] [place] [address], [id number] Email: [email or web address] Sathish Craig MD Attending Provider Physician Referring Provider Specialty: Orthopedic Surgery Address: [address] [place] [address], [id number] Email: [email or web address] Plan Of Care PT-OP-T Assessment and Plan Start: 01/11/20 12:48 Freq: Status: Active Protocol: Document 01/11/20 12:45 [facility] (Rec: 01/18/20 15:22 [facility] [id number]) Physical Therapy Assessment Rehab Potential Rehabilitation Potential Excellent Evaluation Complexity Number of Personal Factors/Comorbidities 0 Number of Body Systems Impaired 1-2 Clinical Presentation at Evaluation Stable Impairments Impairments Activity Tolerance,Pain,Soft Tissue Mobility,Tone Goals Three Impairment Transverse perineal and levator ani guarding and spasm Industrial Cook Goal (LTG) Breanne is able to fully relax her pelvic floor at rest and there is a overall decrease in levator ani guarding in the pelvic clock and transverse perineal muscle Two Impairment muscle guarding and spasm of bilateral adductors Short Term Goal (STG) With manual therapy techniques and stretching there is no longer spasm and tenderness to palpation of the adductor musculature STG Duration 4 weeks One Impairment pain at the pubic bone and pelvic floor with sitting and sit-stand Industrial Cook Goal (LTG) Breanne reports no pain in sitting and is able to transfer from sit-stand without pain LTG Duration 8 weeks Assessment Summary Assessment Breanne returns to PT today with continued pain at her pubic bone. She describes a flare up of her symptoms this past year and underwent a cortisone injection at the pubic symphysis. This really seemed to aggravate her and make her symptoms worse. At this point she is describing pain at the pubic bone as well as spasms in her pelvic floor area making it difficult to sit at times. I had worked with her a few yeas ago after her initial fall and felt that prolotherapy would be beneficial for her as the pubic bone and SI joint still seemed to be unlocking with activity. I had also felt that possibly relaxing her pelvic floor muscles with manual therapy techniques might also be helpful. Breanne is wanting to try pelvic floor release now as she feels her pelvic floor is in spasm. With examination today of her pelvic floor her left Transverse Perineum is very tender and has trigger points throughout it. She is also tight and guarded in her deep levator ani musculature with tightness from 3-6 and 6- 9 on the pelvic clock. She has difficulty relaxing her pelvic floor following a contraction. I did educate Breanne on use of a dilator today to help her with doing trigger point massage work on her own as well as we reviewed stretches for her pelvic floor that would be helpful. I have encouraged her to return to wearing her SI belt while she is flared up. She may also benefit from a prolotherapy consult to evaluate if this would help stabilize her pubic joint so her muscles don't have to guard to try and stabilize it. Physical Therapy Plan Frequency and Duration Frequency of Treatment 2x/Week Duration of Treatment 8 Plan of Care Start Date 01/11/20 Plan of Care End Date 03/21/20 Therapeutic Interventions Therapeutic Interventions Home Exercise Program,Manual Therapy,Patient/Caregiver Education,Self-Care/Home Management,Soft Tissue Mobilization,Therapeutic Exercises Modalities Biofeedback Next Visit Focus/Plan Next Note Type Treatment Note Next Visit Plan Begin MFR for the superficial and deep pelvic floor muscles Plan of Care Dates Plan of Care Start Date 01/11/20 Plan of Care End Date 03/21/20 Electronically Signed by: Melia Rivera, PT 01/18/20 [id number] Please Sign and Return: I have reviewed this Plan of Care and certify that the skilled therapy services above are required to meet the patient?s needs. Physician Signature Date Printed Name and Credentials Clinical Instructor Signature Printed Name and Credentials
--- NOTE | 2020-01-18 15:32 | PT.OTN ---
Current Diagnoses Osteomyelitis, unspecified (01/18/20) Physical Therapy Treatment Note PT-OP-A Visit Information Start: 01/11/20 12:48 Freq: Status: Active Protocol: Document 01/18/20 15:27 [facility] (Rec: 01/18/20 15:32 [facility] [id number]) Out-Patient Physical Therapy Visit Information Visit Information Visit Type Treatment Note Visit Start Time 09:45 Visit Stop Time 10:30 Total Visit Minutes 45 Visit Number 2 PT-OP-B Current Condition Start: 01/11/20 12:48 Freq: Status: Active Protocol: Document 01/11/20 12:48 [facility] (Rec: 01/11/20 13:01 [facility] [id number]) Current Condition History of Current Condition Current Complaints sharp pain in her pubic bone History of Current Condition 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 Dr. Jonas wanted to treat her back, he sent her to doctor juan david. He did a steriod shot in her pubic bone and it didn' t help, for 2 days it helped but then things got bad again. She feels like pain has gotten worse. Now she has left sided pelvic floor, mostly in the left groin region and at the pubic bone. Under the joint and at the bottem. The pelvic floor pain had gone away but now afer the cortsione injection she has had constant pain midline pubic bone. Now pain wakes her up at night. Still trying to do some of the stabilization exercises but she feels very guarded in her pelvic floor. Past medical history includes history of breast cancer, back pain, osteopenia Treatment Goals Patient/Caregiver Goals Pt's goals are to reduce pain and to be able to continue being active. Prior Functional Status Baseline Function- ADL's Independent Baseline Function- Mobility Independent Current Functional Impairments (Reported) Functional Limitations- ADL's Pain with sitting in the pelvic floor region Functional Limitations- Mobility/Gait pain increased with walking and movements such as sit to stand. Uneven movements such as stepping up a big step cause pain into the pubic region. Functional Limitations- Recreation/ limited with recreational Hobbies activies due to pain in the pubic bone PT-OP-C Subjective Start: 01/11/20 12:48 Freq: Status: Active Protocol: Document 01/18/20 15:27 [facility] (Rec: 01/18/20 15:32 [facility] [id number]) OP-PT Subjective Patient Comments Patient Comments Pt reports she was sore following last visit but she did try to ice at home. She also has been trying to stretch and use the dilator PT-OP-I Pelvic Floor Start: 01/11/20 12:48 Freq: Status: Active Protocol: Document 01/11/20 12:45 [facility] (Rec: 01/18/20 15:03 [facility] [id number]) Pelvic Floor Assessment Pelvic Clock Pelvic Clock 6-9 Guarding,Tenderness Pelvic Clock 9-12 Guarding,Tenderness Pelvic Clock Other pain at the transverse perineal musculatre on the left , this reproduces the pain that Breanne reports stopped her from having intercourse Comments Pelvic Floor Comments pt is able to contract all areas of the pelvic floor and levator ani musculature however she has difficutly with relaxation following contraction. PT-OP-J Posture/Palpation/Skin Start: 01/11/20 12:48 Freq: Status: Active Protocol: Document 01/11/20 12:45 [facility] (Rec: 01/18/20 14:59 [facility] [id number]) Palpation Assessment Location Five Palpation Location right piriformis and gluteals Palpation Findings Soft Tissue Tightness, Tenderness Four Palpation Location left gluteals and piriformis Palpation Findings Soft Tissue Tightness Three Palpation Location left sacral AWILDA and Left PSIS, right sacral base Palpation Findings Tenderness Two Palpation Location left adductos Palpation Findings Muscle Guarding,Tenderness Palpation Details guarding of the adductors One Palpation Location pubic bone left side Palpation Details tenderness to palpation PT-OP-M Strength Start: 01/11/20 12:48 Freq: Status: Active Protocol: Document 01/11/20 12:45 [facility] (Rec: 01/18/20 15:04 [facility] [id number]) Trunk Strength Trunk Manual Muscle Testing Core Stabilization + ASLR test on the right for left side unlocking of the SI joint. The transverse abodominal muscle is contraction however the SI is still not fully supported due to ligamentous instability at the pubic bone PT-OP-Q Treatments Start: 01/11/20 12:48 Freq: Status: Active Protocol: Document 01/18/20 15:27 [facility] (Rec: 01/18/20 15:32 [facility] [id number]) Manual Therapy Treatment Soft Tissue Mobilization 3 Body Location adductor release bilaterally Body Position Supine 2 Body Location MFR in the suprapubic fascia Comments tightness noted superior to the pubic bone B, tenderness to palpation 1 Body Location MFR of the deep levator ani musculature 3-6 and 6-9 on the pelvic clock Mobilization Type Myofascial Release PT-OP-T Assessment and Plan Start: 01/11/20 12:48 Freq: Status: Active Protocol: Document 01/18/20 15:27 [facility] (Rec: 01/18/20 15:32 [facility] [id number]) Physical Therapy Assessment Assessment Summary Assessment trigger points in the transverse perineum, tightness left adductor today. Discussed wearing SI belt for stabilization Physical Therapy Plan Frequency and Duration Frequency of Treatment 2x/Week Duration of Treatment 8 Plan of Care Start Date 01/11/20 Plan of Care End Date 03/21/20 Therapeutic Interventions Therapeutic Interventions Home Exercise Program,Manual Therapy,Patient/Caregiver Education,Self-Care/Home Management,Soft Tissue Mobilization,Therapeutic Exercises Modalities Biofeedback Next Visit Focus/Plan Next Note Type Treatment Note Next Visit Plan continue with MFR for the pelvic floor, adductors and suprapubic fascia.
--- NOTE | 2020-01-25 10:59 | PT.OTN ---
Current Diagnoses Osteomyelitis, unspecified (01/25/20) Physical Therapy Treatment Note PT-OP-A Visit Information Start: 01/11/20 12:48 Freq: Status: Active Protocol: Document 01/25/20 09:42 [facility] (Rec: 01/25/20 09:43 [facility] [id number]) Out-Patient Physical Therapy Visit Information Visit Information Visit Type Treatment Note Visit Start Time 09:45 Visit Stop Time 10:30 Total Visit Minutes 45 Visit Number 3 Evaluation Information Evaluation Date 01/11/20 PT-OP-B Current Condition Start: 01/11/20 12:48 Freq: Status: Active Protocol: Document 01/11/20 12:48 [facility] (Rec: 01/11/20 13:01 [facility] [id number]) Current Condition History of Current Condition Current Complaints sharp pain in her pubic bone History of Current Condition 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 Dr. Jonas wanted to treat her back, he sent her to doctor juan david. He did a steriod shot in her pubic bone and it didn' t help, for 2 days it helped but then things got bad again. She feels like pain has gotten worse. Now she has left sided pelvic floor, mostly in the left groin region and at the pubic bone. Under the joint and at the bottem. The pelvic floor pain had gone away but now afer the cortsione injection she has had constant pain midline pubic bone. Now pain wakes her up at night. Still trying to do some of the stabilization exercises but she feels very guarded in her pelvic floor. Past medical history includes history of breast cancer, back pain, osteopenia Treatment Goals Patient/Caregiver Goals Pt's goals are to reduce pain and to be able to continue being active. Prior Functional Status Baseline Function- ADL's Independent Baseline Function- Mobility Independent Current Functional Impairments (Reported) Functional Limitations- ADL's Pain with sitting in the pelvic floor region Functional Limitations- Mobility/Gait pain increased with walking and movements such as sit to stand. Uneven movements such as stepping up a big step cause pain into the pubic region. Functional Limitations- Recreation/ limited with recreational Hobbies activies due to pain in the pubic bone PT-OP-C Subjective Start: 01/11/20 12:48 Freq: Status: Active Protocol: Document 01/25/20 09:44 [facility] (Rec: 01/25/20 09:49 [facility] [id number]) OP-PT Subjective Patient Comments Patient Comments Breanne reports the last 2 days has been super uncomfortable, lots of pain and tightness at the pubic bone in the center. She is feeling like the cortisone injection made her worse PT-OP-I Pelvic Floor Start: 01/11/20 12:48 Freq: Status: Active Protocol: Document 01/11/20 12:45 [facility] (Rec: 01/18/20 15:03 [facility] [id number]) Pelvic Floor Assessment Pelvic Clock Pelvic Clock 6-9 Guarding,Tenderness Pelvic Clock 9-12 Guarding,Tenderness Pelvic Clock Other pain at the transverse perineal musculatre on the left , this reproduces the pain that Breanne reports stopped her from having intercourse Comments Pelvic Floor Comments pt is able to contract all areas of the pelvic floor and levator ani musculature however she has difficutly with relaxation following contraction. PT-OP-J Posture/Palpation/Skin Start: 01/11/20 12:48 Freq: Status: Active Protocol: Document 01/11/20 12:45 [facility] (Rec: 01/18/20 14:59 [facility] [id number]) Palpation Assessment Location Five Palpation Location right piriformis and gluteals Palpation Findings Soft Tissue Tightness, Tenderness Four Palpation Location left gluteals and piriformis Palpation Findings Soft Tissue Tightness Three Palpation Location left sacral AWILDA and Left PSIS, right sacral base Palpation Findings Tenderness Two Palpation Location left adductos Palpation Findings Muscle Guarding,Tenderness Palpation Details guarding of the adductors One Palpation Location pubic bone left side Palpation Details tenderness to palpation PT-OP-M Strength Start: 01/11/20 12:48 Freq: Status: Active Protocol: Document 01/11/20 12:45 [facility] (Rec: 01/18/20 15:04 [facility] [id number]) Trunk Strength Trunk Manual Muscle Testing Core Stabilization + ASLR test on the right for left side unlocking of the SI joint. The transverse abodominal muscle is contraction however the SI is still not fully supported due to ligamentous instability at the pubic bone PT-OP-Q Treatments Start: 01/11/20 12:48 Freq: Status: Active Protocol: Document 01/25/20 10:52 [facility] (Rec: 01/25/20 10:58 [facility] [id number]) Therapeutic Exercises Supine Exercises adductor squeeze with ball Comments x 10 reps Rollouts witht heraband Side bilateral Comments 3 x 10 reps Other Exercises 1 Other Exercise Name quadraped TA facilitation Side bilateral Reps/Minutes hold x 5 seconds and repeat 10 reps Manual Therapy Treatment Soft Tissue Mobilization adductor release B Body Location adductor release bilaterally 2 Body Location MFR in the suprapubic fascia Comments tightness noted superior to the pubic bone B, tenderness to palpation 1 Body Location MFR of the deep levator ani musculature 3-6 and 6-9 on the pelvic clock Mobilization Type Myofascial Release Manual Techniques 1 Type MET R pubic upslip PT-OP-T Assessment and Plan Start: 01/11/20 12:48 Freq: Status: Active Protocol: Document 01/25/20 10:52 [facility] (Rec: 01/25/20 10:58 [facility] [id number]) Physical Therapy Assessment Assessment Summary Assessment pt very sore pubic symphysis. She was elevated on the right today so a MET was performed to stabilize the joint. I worked on MFR of the pubococcygeus, transverse perineal muscles, and adductors to try and decrease spasm around the pubic bone. She has pain with sit-stand. We added in transverse abdominal stabilization and roll ins/roll outs to stabilize the SI. I am not ready to add in pelvic floor stabilization as the muscles are still guarded. I have advised her to wear her SI belt. Physical Therapy Plan Frequency and Duration Frequency of Treatment 2x/Week Duration of Treatment 8 Plan of Care Start Date 01/11/20 Plan of Care End Date 03/21/20 Therapeutic Interventions Therapeutic Interventions Home Exercise Program,Manual Therapy,Patient/Caregiver Education,Self-Care/Home Management,Soft Tissue Mobilization,Therapeutic Exercises Modalities Biofeedback Next Visit Focus/Plan Next Note Type Treatment Note Next Visit Plan continue with MFR for the pelvic floor, adductors and suprapubic fascia.
--- NOTE | 2020-02-02 17:41 | PT.OTN ---
Current Diagnoses Osteomyelitis, unspecified (02/02/20) Physical Therapy Treatment Note PT-OP-A Visit Information Start: 01/11/20 12:48 Freq: Status: Active Protocol: Document 02/02/20 15:11 [facility] (Rec: 02/02/20 15:11 [facility] [id number]) Out-Patient Physical Therapy Visit Information Visit Information Visit Type Treatment Note Visit Start Time 15:15 Visit Stop Time 16:00 Total Visit Minutes 45 Visit Number 4 PT-OP-B Current Condition Start: 01/11/20 12:48 Freq: Status: Active Protocol: Document 01/11/20 12:48 [facility] (Rec: 01/11/20 13:01 [facility] [id number]) Current Condition History of Current Condition Current Complaints sharp pain in her pubic bone History of Current Condition 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 Dr. Jonas wanted to treat her back, he sent her to doctor juan david. He did a steriod shot in her pubic bone and it didn' t help, for 2 days it helped but then things got bad again. She feels like pain has gotten worse. Now she has left sided pelvic floor, mostly in the left groin region and at the pubic bone. Under the joint and at the bottem. The pelvic floor pain had gone away but now afer the cortsione injection she has had constant pain midline pubic bone. Now pain wakes her up at night. Still trying to do some of the stabilization exercises but she feels very guarded in her pelvic floor. Past medical history includes history of breast cancer, back pain, osteopenia Treatment Goals Patient/Caregiver Goals Pt's goals are to reduce pain and to be able to continue being active. Prior Functional Status Baseline Function- ADL's Independent Baseline Function- Mobility Independent Current Functional Impairments (Reported) Functional Limitations- ADL's Pain with sitting in the pelvic floor region Functional Limitations- Mobility/Gait pain increased with walking and movements such as sit to stand. Uneven movements such as stepping up a big step cause pain into the pubic region. Functional Limitations- Recreation/ limited with recreational Hobbies activies due to pain in the pubic bone PT-OP-C Subjective Start: 01/11/20 12:48 Freq: Status: Active Protocol: Document 02/02/20 15:17 [facility] (Rec: 02/02/20 15:22 [facility] [id number]) OP-PT Subjective Patient Comments Patient Comments Breanne had another pelvic floor spasm that lasted a hour . She did find that using the dilator helped her after about 20 minutes. Breanne also reports that she feels at times that her pubic bone is seperated. Patient Reported Progress Same PT-OP-I Pelvic Floor Start: 01/11/20 12:48 Freq: Status: Active Protocol: Document 01/11/20 12:45 [facility] (Rec: 01/18/20 15:03 [facility] [id number]) Pelvic Floor Assessment Pelvic Clock Pelvic Clock 6-9 Guarding,Tenderness Pelvic Clock 9-12 Guarding,Tenderness Pelvic Clock Other pain at the transverse perineal musculatre on the left , this reproduces the pain that Breanne reports stopped her from having intercourse Comments Pelvic Floor Comments pt is able to contract all areas of the pelvic floor and levator ani musculature however she has difficutly with relaxation following contraction. PT-OP-J Posture/Palpation/Skin Start: 01/11/20 12:48 Freq: Status: Active Protocol: Document 01/11/20 12:45 [facility] (Rec: 01/18/20 14:59 [facility] [id number]) Palpation Assessment Location Five Palpation Location right piriformis and gluteals Palpation Findings Soft Tissue Tightness, Tenderness Four Palpation Location left gluteals and piriformis Palpation Findings Soft Tissue Tightness Three Palpation Location left sacral AWILDA and Left PSIS, right sacral base Palpation Findings Tenderness Two Palpation Location left adductos Palpation Findings Muscle Guarding,Tenderness Palpation Details guarding of the adductors One Palpation Location pubic bone left side Palpation Details tenderness to palpation PT-OP-M Strength Start: 01/11/20 12:48 Freq: Status: Active Protocol: Document 01/11/20 12:45 [facility] (Rec: 01/18/20 15:04 [facility] [id number]) Trunk Strength Trunk Manual Muscle Testing Core Stabilization + ASLR test on the right for left side unlocking of the SI joint. The transverse abodominal muscle is contraction however the SI is still not fully supported due to ligamentous instability at the pubic bone PT-OP-Q Treatments Start: 01/11/20 12:48 Freq: Status: Active Protocol: Document 02/02/20 17:37 [facility] (Rec: 02/02/20 17:41 [facility] [id number]) Therapeutic Exercises Other Exercises 1 Other Exercise Name quadruped TA facilitation Side bilateral Reps/Minutes 10x 10 second hold Manual Therapy Treatment Soft Tissue Mobilization adductor release B Body Location adductor release bilaterally 2 Body Location MFR in the suprapubic fascia Comments tightness noted superior to the pubic bone B, tenderness to palpation 1 Body Location MFR of the deep levator ani musculature 3-6 and 6-9 on the pelvic clock Mobilization Type Myofascial Release PT-OP-T Assessment and Plan Start: 01/11/20 12:48 Freq: Status: Active Protocol: Document 02/02/20 17:37 [facility] (Rec: 02/02/20 17:41 [facility] [id number]) Physical Therapy Assessment Assessment Summary Assessment Pt was not as sore today in her levator ani muscles and transverse perineum. Left side is still tighter than the right and this is where the spasm was that she needed touse the dilator for. There is still tenderness over the pubic bone in the suprapubic fascia. She was able to add in quadruped TA facilitation without increased pain. Physical Therapy Plan Frequency and Duration Frequency of Treatment 2x/Week Duration of Treatment 8 Plan of Care Start Date 01/11/20 Plan of Care End Date 03/21/20 Therapeutic Interventions Therapeutic Interventions Home Exercise Program,Manual Therapy,Patient/Caregiver Education,Self-Care/Home Management,Soft Tissue Mobilization,Therapeutic Exercises Modalities Biofeedback Next Visit Focus/Plan Next Note Type Treatment Note Next Visit Plan continue with MFR for the pelvic floor, adductors and suprapubic fascia. Try to work into more stabilization of the SI joint if pt can tolerate this.
--- NOTE | 2020-02-14 17:42 | PT.OTN ---
Current Diagnoses Osteomyelitis, unspecified (02/14/20) Physical Therapy Treatment Note PT-OP-A Visit Information Start: 01/11/20 12:48 Freq: Status: Active Protocol: Document 02/14/20 17:36 [facility] (Rec: 02/14/20 17:42 [facility] [id number]) Out-Patient Physical Therapy Visit Information Visit Information Visit Type Treatment Note Visit Start Time 15:15 Visit Stop Time 16:00 Total Visit Minutes 45 Visit Number 5 PT-OP-B Current Condition Start: 01/11/20 12:48 Freq: Status: Active Protocol: Document 01/11/20 12:48 [facility] (Rec: 01/11/20 13:01 [facility] [id number]) Current Condition History of Current Condition Current Complaints sharp pain in her pubic bone History of Current Condition 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 Dr. Jonas wanted to treat her back, he sent her to doctor juan david. He did a steriod shot in her pubic bone and it didn' t help, for 2 days it helped but then things got bad again. She feels like pain has gotten worse. Now she has left sided pelvic floor, mostly in the left groin region and at the pubic bone. Under the joint and at the bottem. The pelvic floor pain had gone away but now afer the cortsione injection she has had constant pain midline pubic bone. Now pain wakes her up at night. Still trying to do some of the stabilization exercises but she feels very guarded in her pelvic floor. Past medical history includes history of breast cancer, back pain, osteopenia Treatment Goals Patient/Caregiver Goals Pt's goals are to reduce pain and to be able to continue being active. Prior Functional Status Baseline Function- ADL's Independent Baseline Function- Mobility Independent Current Functional Impairments (Reported) Functional Limitations- ADL's Pain with sitting in the pelvic floor region Functional Limitations- Mobility/Gait pain increased with walking and movements such as sit to stand. Uneven movements such as stepping up a big step cause pain into the pubic region. Functional Limitations- Recreation/ limited with recreational Hobbies activies due to pain in the pubic bone PT-OP-C Subjective Start: 01/11/20 12:48 Freq: Status: Active Protocol: Document 02/14/20 17:36 [facility] (Rec: 02/14/20 17:42 [facility] [id number]) OP-PT Subjective Patient Comments Patient Comments Breanne reports she is doing a little better now. She does report having to wear her SI belt at all times and that at times she will feel like her pubic bone is seperating She is being refered to a orthopedic doctor at . She is able to sit now for 10 minutes at a time without increased pain. PT-OP-I Pelvic Floor Start: 01/11/20 12:48 Freq: Status: Active Protocol: Document 01/11/20 12:45 [facility] (Rec: 01/18/20 15:03 [facility] [id number]) Pelvic Floor Assessment Pelvic Clock Pelvic Clock 6-9 Guarding,Tenderness Pelvic Clock 9-12 Guarding,Tenderness Pelvic Clock Other pain at the transverse perineal musculatre on the left , this reproduces the pain that Breanne reports stopped her from having intercourse Comments Pelvic Floor Comments pt is able to contract all areas of the pelvic floor and levator ani musculature however she has difficutly with relaxation following contraction. PT-OP-J Posture/Palpation/Skin Start: 01/11/20 12:48 Freq: Status: Active Protocol: Document 01/11/20 12:45 [facility] (Rec: 01/18/20 14:59 [facility] [id number]) Palpation Assessment Location Five Palpation Location right piriformis and gluteals Palpation Findings Soft Tissue Tightness, Tenderness Four Palpation Location left gluteals and piriformis Palpation Findings Soft Tissue Tightness Three Palpation Location left sacral AWILDA and Left PSIS, right sacral base Palpation Findings Tenderness Two Palpation Location left adductos Palpation Findings Muscle Guarding,Tenderness Palpation Details guarding of the adductors One Palpation Location pubic bone left side Palpation Details tenderness to palpation PT-OP-M Strength Start: 01/11/20 12:48 Freq: Status: Active Protocol: Document 01/11/20 12:45 [facility] (Rec: 01/18/20 15:04 [facility] [id number]) Trunk Strength Trunk Manual Muscle Testing Core Stabilization + ASLR test on the right for left side unlocking of the SI joint. The transverse abodominal muscle is contraction however the SI is still not fully supported due to ligamentous instability at the pubic bone PT-OP-Q Treatments Start: 01/11/20 12:48 Freq: Status: Active Protocol: Document 02/14/20 17:36 [facility] (Rec: 02/14/20 17:42 [facility] [id number]) Therapeutic Exercises Supine Exercises adductor squeeze with ball Comments x 10 reps Rollouts witht heraband Side bilateral Comments 3 x 10 reps Other Exercises 4 Other Exercise Name quadraped cat cow, sidebends 1 Other Exercise Name quadruped TA facilitation Side bilateral Reps/Minutes 10x 10 second hold Manual Therapy Treatment Soft Tissue Mobilization 4 Body Location pelvic diaphragm MFR technique 3 Body Location adductor release bilaterally Body Position Supine 2 Body Location MFR in the suprapubic fascia Comments tightness noted superior to the pubic bone B, tenderness to palpation 1 Body Location MFR of the deep levator ani musculature 3-6 and 6-9 on the pelvic clock Mobilization Type Myofascial Release PT-OP-T Assessment and Plan Start: 01/11/20 12:48 Freq: Status: Active Protocol: Document 02/14/20 17:36 [facility] (Rec: 02/14/20 17:42 [facility] [id number]) Physical Therapy Assessment Assessment Summary Assessment I tried returning today to Transverse abdominal stabilization with marches in supine however this increased pain and guarding in the pelvic floor. I am not able to progress Markay to any dynamic stabilization yet as this is painful. She is tolerating Transverse abdominal facilitation on hands and knees. Physical Therapy Plan Frequency and Duration Frequency of Treatment 2x/Week Duration of Treatment 8 Plan of Care Start Date 01/11/20 Plan of Care End Date 03/21/20 Therapeutic Interventions Therapeutic Interventions Home Exercise Program,Manual Therapy,Patient/Caregiver Education,Self-Care/Home Management,Soft Tissue Mobilization,Therapeutic Exercises Modalities Biofeedback
--- NOTE | 2020-02-23 17:20 | PT.OTN ---
Current Diagnoses Osteomyelitis, unspecified (02/23/20) Physical Therapy Treatment Note PT-OP-A Visit Information Start: 01/11/20 12:48 Freq: Status: Active Protocol: Document 02/23/20 15:23 [facility] (Rec: 02/23/20 15:24 [facility] [id number]) Out-Patient Physical Therapy Visit Information Visit Information Visit Type Treatment Note Visit Start Time 15:15 Visit Stop Time 16:00 Total Visit Minutes 45 PT-OP-B Current Condition Start: 01/11/20 12:48 Freq: Status: Active Protocol: Document 01/11/20 12:48 [facility] (Rec: 01/11/20 13:01 [facility] [id number]) Current Condition History of Current Condition Current Complaints sharp pain in her pubic bone History of Current Condition 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 Dr. Jonas wanted to treat her back, he sent her to doctor juan david. He did a steriod shot in her pubic bone and it didn' t help, for 2 days it helped but then things got bad again. She feels like pain has gotten worse. Now she has left sided pelvic floor, mostly in the left groin region and at the pubic bone. Under the joint and at the bottem. The pelvic floor pain had gone away but now afer the cortsione injection she has had constant pain midline pubic bone. Now pain wakes her up at night. Still trying to do some of the stabilization exercises but she feels very guarded in her pelvic floor. Past medical history includes history of breast cancer, back pain, osteopenia Treatment Goals Patient/Caregiver Goals Pt's goals are to reduce pain and to be able to continue being active. Prior Functional Status Baseline Function- ADL's Independent Baseline Function- Mobility Independent Current Functional Impairments (Reported) Functional Limitations- ADL's Pain with sitting in the pelvic floor region Functional Limitations- Mobility/Gait pain increased with walking and movements such as sit to stand. Uneven movements such as stepping up a big step cause pain into the pubic region. Functional Limitations- Recreation/ limited with recreational Hobbies activies due to pain in the pubic bone PT-OP-C Subjective Start: 01/11/20 12:48 Freq: Status: Active Protocol: Document 02/23/20 15:23 [facility] (Rec: 02/23/20 15:24 [facility] [id number]) OP-PT Subjective Patient Comments Patient Comments pt reports she wore heels to sikh this last week and this aggravated her symptoms, she also tried to do a self internal release witht he dilator and she was realy sore afterwards, she is having increased tenderness at the sitting bones. PT-OP-I Pelvic Floor Start: 01/11/20 12:48 Freq: Status: Active Protocol: Document 01/11/20 12:45 [facility] (Rec: 01/18/20 15:03 [facility] [id number]) Pelvic Floor Assessment Pelvic Clock Pelvic Clock 6-9 Guarding,Tenderness Pelvic Clock 9-12 Guarding,Tenderness Pelvic Clock Other pain at the transverse perineal musculatre on the left , this reproduces the pain that Markay reports stopped her from having intercourse Comments Pelvic Floor Comments pt is able to contract all areas of the pelvic floor and levator ani musculature however she has difficutly with relaxation following contraction. PT-OP-J Posture/Palpation/Skin Start: 01/11/20 12:48 Freq: Status: Active Protocol: Document 01/11/20 12:45 [facility] (Rec: 01/18/20 14:59 [facility] [id number]) Palpation Assessment Location Five Palpation Location right piriformis and gluteals Palpation Findings Soft Tissue Tightness, Tenderness Four Palpation Location left gluteals and piriformis Palpation Findings Soft Tissue Tightness Three Palpation Location left sacral AWILDA and Left PSIS, right sacral base Palpation Findings Tenderness Two Palpation Location left adductos Palpation Findings Muscle Guarding,Tenderness Palpation Details guarding of the adductors One Palpation Location pubic bone left side Palpation Details tenderness to palpation PT-OP-M Strength Start: 01/11/20 12:48 Freq: Status: Active Protocol: Document 01/11/20 12:45 [facility] (Rec: 01/18/20 15:04 [facility] [id number]) Trunk Strength Trunk Manual Muscle Testing Core Stabilization + ASLR test on the right for left side unlocking of the SI joint. The transverse abodominal muscle is contraction however the SI is still not fully supported due to ligamentous instability at the pubic bone PT-OP-Q Treatments Start: 01/11/20 12:48 Freq: Status: Active Protocol: Document 02/23/20 17:05 [facility] (Rec: 02/23/20 17:20 [facility] [id number]) Manual Therapy Treatment Soft Tissue Mobilization 5 Body Location obturator internus release bilaterally 2 Body Location MFR in the suprapubic fascia Comments tightness noted superior to the pubic bone B, tenderness to palpation 1 Body Location MFR of the deep levator ani musculature 3-6 and 6-9 on the pelvic clock Mobilization Type Myofascial Release PT-OP-T Assessment and Plan Start: 01/11/20 12:48 Freq: Status: Active Protocol: Document 02/23/20 17:05 [facility] (Rec: 02/23/20 17:20 [facility] [id number]) Physical Therapy Assessment Assessment Summary Assessment Breanne was very tight today in the obturator internus B as well as iliococcygeus. I talked to her about avoiding wearing high heeled shoes as this can aggravate the pubic bone. It still appears she is unstable in the pubic bone and her pelvic floor is guarding because of it. Prolotherapy may be very useful for her. She will be scheduled for a ortho consult at Physical Therapy Plan Frequency and Duration Frequency of Treatment 2x/Week Duration of Treatment 8 Plan of Care Start Date 01/11/20 Plan of Care End Date 03/21/20 Therapeutic Interventions Therapeutic Interventions Home Exercise Program,Manual Therapy,Patient/Caregiver Education,Self-Care/Home Management,Soft Tissue Mobilization,Therapeutic Exercises Modalities Biofeedback Next Visit Focus/Plan Next Note Type Treatment Note Next Visit Plan continue with MFR for the pelvic floor, adductors and suprapubic fascia. Continue with stabilization as Breanne can tolerate
--- NOTE | 2020-02-28 17:11 | PT.OTN ---
Current Diagnoses Osteomyelitis, unspecified (02/28/20) Physical Therapy Treatment Note PT-OP-A Visit Information Start: 01/11/20 12:48 Freq: Status: Active Protocol: Document 02/28/20 17:07 [facility] (Rec: 02/28/20 17:10 [facility] [id number]) Out-Patient Physical Therapy Visit Information Visit Information Visit Type Treatment Note Visit Start Time 15:15 Visit Stop Time 16:00 Total Visit Minutes 45 Visit Number 7 PT-OP-B Current Condition Start: 01/11/20 12:48 Freq: Status: Active Protocol: Document 01/11/20 12:48 [facility] (Rec: 01/11/20 13:01 [facility] [id number]) Current Condition History of Current Condition Current Complaints sharp pain in her pubic bone History of Current Condition 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 Dr. Jonas wanted to treat her back, he sent her to doctor juan davdi. He did a steriod shot in her pubic bone and it didn' t help, for 2 days it helped but then things got bad again. She feels like pain has gotten worse. Now she has left sided pelvic floor, mostly in the left groin region and at the pubic bone. Under the joint and at the bottem. The pelvic floor pain had gone away but now afer the cortsione injection she has had constant pain midline pubic bone. Now pain wakes her up at night. Still trying to do some of the stabilization exercises but she feels very guarded in her pelvic floor. Past medical history includes history of breast cancer, back pain, osteopenia Treatment Goals Patient/Caregiver Goals Pt's goals are to reduce pain and to be able to continue being active. Prior Functional Status Baseline Function- ADL's Independent Baseline Function- Mobility Independent Current Functional Impairments (Reported) Functional Limitations- ADL's Pain with sitting in the pelvic floor region Functional Limitations- Mobility/Gait pain increased with walking and movements such as sit to stand. Uneven movements such as stepping up a big step cause pain into the pubic region. 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 She is awaiting a referral to a doctor who does. She notes her inner thighs are very guarded and sore today. She continues to experience pubic bone pain PT-OP-I Pelvic Floor Start: 01/11/20 12:48 Freq: Status: Active Protocol: Document 01/11/20 12:45 [facility] (Rec: 01/18/20 15:03 [facility] [id number]) Pelvic Floor Assessment Pelvic Clock Pelvic Clock 6-9 Guarding,Tenderness Pelvic Clock 9-12 Guarding,Tenderness Pelvic Clock Other pain at the transverse perineal musculatre on the left , this reproduces the pain that Breanne reports stopped her from having intercourse Comments Pelvic Floor Comments pt is able to contract all areas of the pelvic floor and levator ani musculature however she has difficutly with relaxation following contraction. PT-OP-J Posture/Palpation/Skin Start: 01/11/20 12:48 Freq: Status: Active Protocol: Document 01/11/20 12:45 [facility] (Rec: 01/18/20 14:59 [facility] [id number]) Palpation Assessment Location Five Palpation Location right piriformis and gluteals Palpation Findings Soft Tissue Tightness, Tenderness Four Palpation Location left gluteals and piriformis Palpation Findings Soft Tissue Tightness Three Palpation Location left sacral AWILDA and Left PSIS, right sacral base Palpation Findings Tenderness Two Palpation Location left adductos Palpation Findings Muscle Guarding,Tenderness Palpation Details guarding of the adductors One Palpation Location pubic bone left side Palpation Details tenderness to palpation PT-OP-M Strength Start: 01/11/20 12:48 Freq: Status: Active Protocol: Document 01/11/20 12:45 [facility] (Rec: 01/18/20 15:04 [facility] [id number]) Trunk Strength Trunk Manual Muscle Testing Core Stabilization + ASLR test on the right for left side unlocking of the SI joint. The transverse abodominal muscle is contraction however the SI is still not fully supported due to ligamentous instability at the pubic bone PT-OP-Q Treatments Start: 01/11/20 12:48 Freq: Status: Active Protocol: Document 02/28/20 17:07 [facility] (Rec: 02/28/20 17:10 [facility] [id number]) Manual Therapy Treatment Soft Tissue Mobilization adductor release B Body Location adductor release bilaterally 5 Body Location obturator internus release bilaterally 4 Body Location pelvic diaphragm MFR technique 2 Body Location MFR in the suprapubic fascia Comments tightness noted superior to the pubic bone B, tenderness to palpation PT-OP-T Assessment and Plan Start: 01/11/20 12:48 Freq: Status: Active Protocol: Document 02/28/20 17:07 [facility] (Rec: 02/28/20 17:10 [facility] [id number]) Physical Therapy Assessment Assessment Summary Assessment Breanne still very guarded and tight in the adductors and pelvic floor. I feel this is due to the instability of her pubic bone that seemed to worsen following her cortisone injection. Prolotherapy may be very beneficial to her. She does get some relief with manual therapy techniques to address the guarding however this is temporary only. Physical Therapy Plan Frequency and Duration Frequency of Treatment 2x/Week Duration of Treatment 8 Plan of Care Start Date 01/11/20 Plan of Care End Date 03/21/20 Next Visit Focus/Plan Next Note Type Treatment Note Next Visit Plan continue with MFR for the pelvic floor, adductors and suprapubic fascia. Continue with stabilization as Breanne can tolerate
--- NOTE | 2020-03-01 16:35 | PT.OTN ---
Current Diagnoses Osteomyelitis, unspecified (03/01/20) Physical Therapy Treatment Note PT-OP-A Visit Information Start: 01/11/20 12:48 Freq: Status: Active Protocol: Document 03/01/20 15:21 [facility] (Rec: 03/01/20 15:22 [facility] [id number]) Out-Patient Physical Therapy Visit Information Visit Information Visit Type Treatment Note Visit Start Time 15:15 Visit Stop Time 16:00 Total Visit Minutes 45 Visit Number 8 PT-OP-B Current Condition Start: 01/11/20 12:48 Freq: Status: Active Protocol: Document 01/11/20 12:48 [facility] (Rec: 01/11/20 13:01 [facility] [id number]) Current Condition History of Current Condition Current Complaints sharp pain in her pubic bone History of Current Condition 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 Dr. Jonas wanted to treat her back, he sent her to doctor juan david. He did a steriod shot in her pubic bone and it didn' t help, for 2 days it helped but then things got bad again. She feels like pain has gotten worse. Now she has left sided pelvic floor, mostly in the left groin region and at the pubic bone. Under the joint and at the bottem. The pelvic floor pain had gone away but now afer the cortsione injection she has had constant pain midline pubic bone. Now pain wakes her up at night. Still trying to do some of the stabilization exercises but she feels very guarded in her pelvic floor. Past medical history includes history of breast cancer, back pain, osteopenia Treatment Goals Patient/Caregiver Goals Pt's goals are to reduce pain and to be able to continue being active. Prior Functional Status Baseline Function- ADL's Independent Baseline Function- Mobility Independent Current Functional Impairments (Reported) Functional Limitations- ADL's Pain with sitting in the pelvic floor region Functional Limitations- Mobility/Gait pain increased with walking and movements such as sit to stand. Uneven movements such as stepping up a big step cause pain into the pubic region. Functional Limitations- Recreation/ limited with recreational Hobbies activies due to pain in the pubic bone PT-OP-C Subjective Start: 01/11/20 12:48 Freq: Status: Active Protocol: Document 03/01/20 15:22 [facility] (Rec: 03/01/20 15:25 [facility] [id number]) OP-PT Subjective Patient Comments Patient Comments Pt reports she is feeling a little better, she doesn't have as much discomfort in the pelvic floor. She hasn't done her benjamin routine for 2 weeks. Patient Reported Progress Improving PT-OP-I Pelvic Floor Start: 01/11/20 12:48 Freq: Status: Active Protocol: Document 01/11/20 12:45 [facility] (Rec: 01/18/20 15:03 [facility] [id number]) Pelvic Floor Assessment Pelvic Clock Pelvic Clock 6-9 Guarding,Tenderness Pelvic Clock 9-12 Guarding,Tenderness Pelvic Clock Other pain at the transverse perineal musculatre on the left , this reproduces the pain that Markay reports stopped her from having intercourse Comments Pelvic Floor Comments pt is able to contract all areas of the pelvic floor and levator ani musculature however she has difficutly with relaxation following contraction. PT-OP-J Posture/Palpation/Skin Start: 01/11/20 12:48 Freq: Status: Active Protocol: Document 01/11/20 12:45 [facility] (Rec: 01/18/20 14:59 [facility] [id number]) Palpation Assessment Location Five Palpation Location right piriformis and gluteals Palpation Findings Soft Tissue Tightness, Tenderness Four Palpation Location left gluteals and piriformis Palpation Findings Soft Tissue Tightness Three Palpation Location left sacral AWILDA and Left PSIS, right sacral base Palpation Findings Tenderness Two Palpation Location left adductos Palpation Findings Muscle Guarding,Tenderness Palpation Details guarding of the adductors One Palpation Location pubic bone left side Palpation Details tenderness to palpation PT-OP-M Strength Start: 01/11/20 12:48 Freq: Status: Active Protocol: Document 01/11/20 12:45 [facility] (Rec: 01/18/20 15:04 [facility] [id number]) Trunk Strength Trunk Manual Muscle Testing Core Stabilization + ASLR test on the right for left side unlocking of the SI joint. The transverse abodominal muscle is contraction however the SI is still not fully supported due to ligamentous instability at the pubic bone PT-OP-Q Treatments Start: 01/11/20 12:48 Freq: Status: Active Protocol: Document 03/01/20 15:35 [facility] (Rec: 03/01/20 15:38 [facility] [id number]) Therapeutic Exercises Other Exercises crunches with ball squeeze Reps/Minutes x 10 reps plank exercise Other Exercise Name forearm plank Reps/Minutes hold 1 min Quadruped TA with arm lifts Reps/Minutes x 10 4 Other Exercise Name quadraped cat cow, sidebends 1 Other Exercise Name quadruped TA facilitation Side bilateral Reps/Minutes 10x 10 second hold Manual Therapy Treatment Soft Tissue Mobilization adductor release B Body Location adductor release bilaterally 2 Body Location MFR in the suprapubic fascia Comments tightness noted superior to the pubic bone B, tenderness to palpation PT-OP-T Assessment and Plan Start: 01/11/20 12:48 Freq: Status: Active Protocol: Document 03/01/20 16:30 [facility] (Rec: 03/01/20 16:35 [facility] [id number]) Physical Therapy Assessment Assessment Summary Assessment Breanne was not as sore today in her adductors or pelvic floor. We tried some additional stabilization today for her in stationary positions and she tolerated this well. She was tender on the mons pubis today and crucible furnace tender at the pubic symphysis but her pelvic floor and adductors were not as guarded Physical Therapy Plan Frequency and Duration Frequency of Treatment 2x/Week Duration of Treatment 8 Plan of Care Start Date 01/11/20 Plan of Care End Date 03/21/20
--- NOTE | 2020-03-13 17:16 | PT.OTN ---
Current Diagnoses Osteomyelitis, unspecified (03/13/20) Physical Therapy Treatment Note PT-OP-A Visit Information Start: 01/11/20 12:48 Freq: Status: Active Protocol: Document 03/13/20 15:15 [facility] (Rec: 03/13/20 15:15 [facility] [id number]) Out-Patient Physical Therapy Visit Information Visit Information Visit Type Treatment Note Visit Start Time 15:15 Visit Stop Time 16:00 Total Visit Minutes 45 Visit Number 9 Evaluation Information Evaluation Date 01/11/20 PT-OP-B Current Condition Start: 01/11/20 12:48 Freq: Status: Active Protocol: Document 01/11/20 12:48 [facility] (Rec: 01/11/20 13:01 [facility] [id number]) Current Condition History of Current Condition Current Complaints sharp pain in her pubic bone History of Current Condition 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 Dr. Jonas wanted to treat her back, he sent her to doctor juan david. He did a steriod shot in her pubic bone and it didn' t help, for 2 days it helped but then things got bad again. She feels like pain has gotten worse. Now she has left sided pelvic floor, mostly in the left groin region and at the pubic bone. Under the joint and at the bottem. The pelvic floor pain had gone away but now afer the cortsione injection she has had constant pain midline pubic bone. Now pain wakes her up at night. Still trying to do some of the stabilization exercises but she feels very guarded in her pelvic floor. Past medical history includes history of breast cancer, back pain, osteopenia Treatment Goals Patient/Caregiver Goals Pt's goals are to reduce pain and to be able to continue being active. Prior Functional Status Baseline Function- ADL's Independent Baseline Function- Mobility Independent Current Functional Impairments (Reported) Functional Limitations- ADL's Pain with sitting in the pelvic floor region Functional Limitations- Mobility/Gait pain increased with walking and movements such as sit to stand. Uneven movements such as stepping up a big step cause pain into the pubic region. Functional Limitations- Recreation/ limited with recreational Hobbies activies due to pain in the pubic bone PT-OP-C Subjective Start: 01/11/20 12:48 Freq: Status: Active Protocol: Document 03/13/20 15:16 [facility] (Rec: 03/13/20 15:30 [facility] [id number]) OP-PT Subjective Patient Comments Patient Comments Pt reports she saw the specialisit at and she wasnts to do a nerve block. [place]git[place] it Patient Reported Progress Improving PT-OP-I Pelvic Floor Start: 01/11/20 12:48 Freq: Status: Active Protocol: Document 01/11/20 12:45 [facility] (Rec: 01/18/20 15:03 [facility] [id number]) Pelvic Floor Assessment Pelvic Clock Pelvic Clock 6-9 Guarding,Tenderness Pelvic Clock 9-12 Guarding,Tenderness Pelvic Clock Other pain at the transverse perineal musculatre on the left , this reproduces the pain that Markay reports stopped her from having intercourse Comments Pelvic Floor Comments pt is able to contract all areas of the pelvic floor and levator ani musculature however she has difficutly with relaxation following contraction. PT-OP-J Posture/Palpation/Skin Start: 01/11/20 12:48 Freq: Status: Active Protocol: Document 01/11/20 12:45 [facility] (Rec: 01/18/20 14:59 [facility] [id number]) Palpation Assessment Location Five Palpation Location right piriformis and gluteals Palpation Findings Soft Tissue Tightness, Tenderness Four Palpation Location left gluteals and piriformis Palpation Findings Soft Tissue Tightness Three Palpation Location left sacral AWILDA and Left PSIS, right sacral base Palpation Findings Tenderness Two Palpation Location left adductos Palpation Findings Muscle Guarding,Tenderness Palpation Details guarding of the adductors One Palpation Location pubic bone left side Palpation Details tenderness to palpation PT-OP-M Strength Start: 01/11/20 12:48 Freq: Status: Active Protocol: Document 01/11/20 12:45 [facility] (Rec: 01/18/20 15:04 [facility] [id number]) Trunk Strength Trunk Manual Muscle Testing Core Stabilization + ASLR test on the right for left side unlocking of the SI joint. The transverse abodominal muscle is contraction however the SI is still not fully supported due to ligamentous instability at the pubic bone PT-OP-Q Treatments Start: 01/11/20 12:48 Freq: Status: Active Protocol: Document 03/13/20 16:59 [facility] (Rec: 03/13/20 17:16 [facility] [email or web address]) Manual Therapy Treatment Soft Tissue Mobilization adductor release B Body Location adductor release bilaterally 4 Body Location pelvic diaphragm MFR technique 2 Body Location MFR in the suprapubic fascia Comments tightness noted superior to the pubic bone B, tenderness to palpation Joint Mobilizations 2 Joint right pubic upslip MET Body Position Supine PT-OP-T Assessment and Plan Start: 01/11/20 12:48 Freq: Status: Active Protocol: Document 03/13/20 16:59 [facility] (Rec: 03/13/20 17:16 [facility] [email or web address]) Physical Therapy Assessment Assessment Summary Assessment Breanne did not have the guarding in her pelvic floor today that she has in the past . She is not as flared although she was tender at her pubic bone. Her pubic symphysis still presents as a unstable joint to me and something to stabilize her joint like prolotherapy may be very beneficial. Physical Therapy Plan Frequency and Duration Frequency of Treatment 2x/Week Duration of Treatment 8 Plan of Care Start Date 01/11/20 Plan of Care End Date 03/21/20 Therapeutic Interventions Therapeutic Interventions Home Exercise Program,Manual Therapy,Patient/Caregiver Education,Self-Care/Home Management,Soft Tissue Mobilization,Therapeutic Exercises Modalities Biofeedback Next Visit Focus/Plan Next Note Type Progress Note Next Visit Plan recheck alignment next visit.
--- NOTE | 2020-03-15 18:01 | PT.OTN ---
Current Diagnoses Osteomyelitis, unspecified (03/15/20) Physical Therapy Treatment Note PT-OP-A Visit Information Start: 01/11/20 12:48 Freq: Status: Active Protocol: Document 03/15/20 17:56 [facility] (Rec: 03/15/20 17:57 [facility] [id number]) Out-Patient Physical Therapy Visit Information Visit Information Visit Type Treatment Note Visit Start Time 15:15 Visit Stop Time 16:00 Total Visit Minutes 45 Visit Number 10 PT-OP-B Current Condition Start: 01/11/20 12:48 Freq: Status: Active Protocol: Document 01/11/20 12:48 [facility] (Rec: 01/11/20 13:01 [facility] [id number]) Current Condition History of Current Condition Current Complaints sharp pain in her pubic bone History of Current Condition 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 Dr. Jonas wanted to treat her back, he sent her to doctor juan david. He did a steriod shot in her pubic bone and it didn' t help, for 2 days it helped but then things got bad again. She feels like pain has gotten worse. Now she has left sided pelvic floor, mostly in the left groin region and at the pubic bone. Under the joint and at the bottem. The pelvic floor pain had gone away but now afer the cortsione injection she has had constant pain midline pubic bone. Now pain wakes her up at night. Still trying to do some of the stabilization exercises but she feels very guarded in her pelvic floor. Past medical history includes history of breast cancer, back pain, osteopenia Treatment Goals Patient/Caregiver Goals Pt's goals are to reduce pain and to be able to continue being active. Prior Functional Status Baseline Function- ADL's Independent Baseline Function- Mobility Independent Current Functional Impairments (Reported) Functional Limitations- ADL's Pain with sitting in the pelvic floor region Functional Limitations- Mobility/Gait pain increased with walking and movements such as sit to stand. Uneven movements such as stepping up a big step cause pain into the pubic region. Functional Limitations- Recreation/ limited with recreational Hobbies activies due to pain in the pubic bone PT-OP-C Subjective Start: 01/11/20 12:48 Freq: Status: Active Protocol: Document 03/15/20 17:58 [facility] (Rec: 03/15/20 18:01 [facility] [id number]) OP-PT Subjective Patient Comments Patient Comments Breanne reports she is doing better today and not feeling as much of the spasms PT-OP-I Pelvic Floor Start: 01/11/20 12:48 Freq: Status: Active Protocol: Document 01/11/20 12:45 [facility] (Rec: 01/18/20 15:03 [facility] [id number]) Pelvic Floor Assessment Pelvic Clock Pelvic Clock 6-9 Guarding,Tenderness Pelvic Clock 9-12 Guarding,Tenderness Pelvic Clock Other pain at the transverse perineal musculatre on the left , this reproduces the pain that Breanne reports stopped her from having intercourse Comments Pelvic Floor Comments pt is able to contract all areas of the pelvic floor and levator ani musculature however she has difficutly with relaxation following contraction. PT-OP-J Posture/Palpation/Skin Start: 01/11/20 12:48 Freq: Status: Active Protocol: Document 01/11/20 12:45 [facility] (Rec: 01/18/20 14:59 [facility] [id number]) Palpation Assessment Location Five Palpation Location right piriformis and gluteals Palpation Findings Soft Tissue Tightness, Tenderness Four Palpation Location left gluteals and piriformis Palpation Findings Soft Tissue Tightness Three Palpation Location left sacral AWILDA and Left PSIS, right sacral base Palpation Findings Tenderness Two Palpation Location left adductos Palpation Findings Muscle Guarding,Tenderness Palpation Details guarding of the adductors One Palpation Location pubic bone left side Palpation Details tenderness to palpation PT-OP-M Strength Start: 01/11/20 12:48 Freq: Status: Active Protocol: Document 01/11/20 12:45 [facility] (Rec: 01/18/20 15:04 [facility] [id number]) Trunk Strength Trunk Manual Muscle Testing Core Stabilization + ASLR test on the right for left side unlocking of the SI joint. The transverse abodominal muscle is contraction however the SI is still not fully supported due to ligamentous instability at the pubic bone PT-OP-Q Treatments Start: 01/11/20 12:48 Freq: Status: Active Protocol: Document 03/15/20 17:58 [facility] (Rec: 03/15/20 18:01 [facility] [email or web address]) Therapeutic Exercises Supine Exercises adductor squeeze with ball Comments x 10 reps Other Exercises 4 Other Exercise Name quadraped cat cow, sidebends 3 Other Exercise Name iliopsoas stretch with leg off ball and in half kneeling position 1 Other Exercise Name quadruped TA facilitation Side bilateral Reps/Minutes 10x 10 second hold Manual Therapy Treatment Soft Tissue Mobilization adductor release B Body Location adductor release bilaterally 2 Body Location MFR in the suprapubic fascia Comments tightness noted superior to the pubic bone B, tenderness to palpation PT-OP-T Assessment and Plan Start: 01/11/20 12:48 Freq: Status: Active Protocol: Document 03/15/20 17:58 [facility] (Rec: 03/15/20 18:01 [facility] [email or web address]) Physical Therapy Assessment Assessment Summary Assessment SI aligned today, right sided adductor guarding and tenderness above the pubic bone. Patient is awaiting her nerve block the 27 of March Physical Therapy Plan Frequency and Duration Frequency of Treatment 2x/Week Duration of Treatment 8 Plan of Care Start Date 01/11/20 Plan of Care End Date 03/21/20 Therapeutic Interventions Therapeutic Interventions Home Exercise Program,Manual Therapy,Patient/Caregiver Education,Self-Care/Home Management,Soft Tissue Mobilization,Therapeutic Exercises Modalities Biofeedback Next Visit Focus/Plan Next Note Type Progress Note Next Visit Plan recheck alignement and work on stabilization exercises for the SI joint
--- NOTE | 2020-03-20 16:22 | PT.OTN ---
Current Diagnoses Osteomyelitis, unspecified (03/20/20) Physical Therapy Treatment Note PT-OP-A Visit Information Start: 01/11/20 12:48 Freq: Status: Active Protocol: Document 03/20/20 15:24 [facility] (Rec: 03/20/20 15:25 [facility] [id number]) Out-Patient Physical Therapy Visit Information Visit Information Visit Type Treatment Note Visit Start Time 15:15 Visit Stop Time 16:00 Total Visit Minutes 45 Visit Number 11 PT-OP-B Current Condition Start: 01/11/20 12:48 Freq: Status: Active Protocol: Document 01/11/20 12:48 [facility] (Rec: 01/11/20 13:01 [facility] [id number]) Current Condition History of Current Condition Current Complaints sharp pain in her pubic bone History of Current 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 Dr. Jonas wanted to treat her back, he sent her to doctor juan david. He did a steriod shot in her pubic bone and it didn' t help, for 2 days it helped but then things got bad again. She feels like pain has gotten worse. Now she has left sided pelvic floor, mostly in the left groin region and at the pubic bone. Under the joint and at the bottem. The pelvic floor pain had gone away but now afer the cortsione injection she has had constant pain midline pubic bone. Now pain wakes her up at night. Still trying to do some of the stabilization exercises but she feels very guarded in her pelvic floor. Past medical history includes history of breast cancer, back pain, osteopenia Treatment Goals Patient/Caregiver Goals Pt's goals are to reduce pain and to be able to continue being active. Prior Functional Status Baseline Function- ADL's Independent Baseline Function- Mobility Independent Current Functional Impairments (Reported) Functional Limitations- ADL's Pain with sitting in the pelvic floor region Functional Limitations- Mobility/Gait pain increased with walking and movements such as sit to stand. Uneven movements such as stepping up a big step cause pain into the pubic region. Functional Limitations- Recreation/ limited with recreational Hobbies activies due to pain in the pubic bone PT-OP-C Subjective Start: 01/11/20 12:48 Freq: Status: Active Protocol: Document 03/20/20 15:24 [facility] (Rec: 03/20/20 15:25 [facility] [id number]) OP-PT Subjective Patient Comments Patient Comments Right sided pain today under the sitting bone and at the pubic bone in the front, it started Thursday. Has her nerve block on March 27. Patient Reported Progress Same PT-OP-I Pelvic Floor Start: 01/11/20 12:48 Freq: Status: Active Protocol: Document 01/11/20 12:45 [facility] (Rec: 01/18/20 15:03 [facility] [id number]) Pelvic Floor Assessment Pelvic Clock Pelvic Clock 6-9 Guarding,Tenderness Pelvic Clock 9-12 Guarding,Tenderness Pelvic Clock Other pain at the transverse perineal musculatre on the left , this reproduces the pain that Markay reports stopped her from having intercourse Comments Pelvic Floor Comments pt is able to contract all areas of the pelvic floor and levator ani musculature however she has difficutly with relaxation following contraction. PT-OP-J Posture/Palpation/Skin Start: 01/11/20 12:48 Freq: Status: Active Protocol: Document 01/11/20 12:45 [facility] (Rec: 01/18/20 14:59 [facility] [id number]) Palpation Assessment Location Five Palpation Location right piriformis and gluteals Palpation Findings Soft Tissue Tightness, Tenderness Four Palpation Location left gluteals and piriformis Palpation Findings Soft Tissue Tightness Three Palpation Location left sacral AWILDA and Left PSIS, right sacral base Palpation Findings Tenderness Two Palpation Location left adductos Palpation Findings Muscle Guarding,Tenderness Palpation Details guarding of the adductors One Palpation Location pubic bone left side Palpation Details tenderness to palpation PT-OP-M Strength Start: 01/11/20 12:48 Freq: Status: Active Protocol: Document 01/11/20 12:45 [facility] (Rec: 01/18/20 15:04 [facility] [id number]) Trunk Strength Trunk Manual Muscle Testing Core Stabilization + ASLR test on the right for left side unlocking of the SI joint. The transverse abodominal muscle is contraction however the SI is still not fully supported due to ligamentous instability at the pubic bone PT-OP-Q Treatments Start: 01/11/20 12:48 Freq: Status: Active Protocol: Document 03/20/20 15:24 [facility] (Rec: 03/25/20 16:22 [facility] [email or web address]) Manual Therapy Treatment Soft Tissue Mobilization adductor release B Body Location adductor release bilaterally 4 Body Location pelvic diaphragm MFR technique 2 Body Location MFR in the suprapubic fascia Comments tightness noted superior to the pubic bone B, tenderness to palpation PT-OP-T Assessment and Plan Start: 01/11/20 12:48 Freq: Status: Active Protocol: Document 03/20/20 15:24 [facility] (Rec: 03/25/20 16:22 [facility] [email or web address]) Physical Therapy Assessment Assessment Summary Assessment I held off on stabilization exercises today as Breanne seems to flare up following and has more guarding of her pelvic floor. SHe has a nerve block done Nov and we will recheck back in with her following that Physical Therapy Plan Frequency and Duration Frequency of Treatment 2x/Week Duration of Treatment 8 Plan of Care Start Date 01/11/20 Plan of Care End Date 03/21/20 Next Visit Focus/Plan Next Note Type Progress Note Next Visit Plan assess pts tolerance to nerve block and progress stabilization as tolerated
--- NOTE | 2020-04-03 18:52 | PT.OTN ---
Current Diagnoses Osteomyelitis, unspecified (03/29/20) Physical Therapy Treatment Note PT-OP-A Visit Information Start: 01/11/20 12:48 Freq: Status: Active Protocol: Document 03/29/20 16:00 [facility] (Rec: 03/29/20 16:00 AM[facility] [id number]) Out-Patient Physical Therapy Visit Information Visit Information Visit Type Treatment Note Visit Start Time 16:00 Visit Stop Time 16:45 Total Visit Minutes 45 Visit Number 12 Evaluation Information Evaluation Date 01/11/20 PT-OP-B Current Condition Start: 01/11/20 12:48 Freq: Status: Active Protocol: Document 01/11/20 12:48 AMH (Rec: 01/11/20 13:01 AMH [id number]) Current Condition History of Current Condition Current Complaints sharp pain in her pubic bone History of Current 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 Dr. Jonas wanted to treat her back, he sent her to doctor juan david. He did a steriod shot in her pubic bone and it didn' t help, for 2 days it helped but then things got bad again. She feels like pain has gotten worse. Now she has left sided pelvic floor, mostly in the left groin region and at the pubic bone. Under the joint and at the bottem. The pelvic floor pain had gone away but now afer the cortsione injection she has had constant pain midline pubic bone. Now pain wakes her up at night. Still trying to do some of the stabilization exercises but she feels very guarded in her pelvic floor. Past medical history includes history of breast cancer, back pain, osteopenia Treatment Goals Patient/Caregiver Goals Pt's goals are to reduce pain and to be able to continue being active. Prior Functional Status Baseline Function- ADL's Independent Baseline Function- Mobility Independent Current Functional Impairments (Reported) Functional Limitations- ADL's Pain with sitting in the pelvic floor region Functional Limitations- Mobility/Gait pain increased with walking and movements such as sit to stand. Uneven movements such as stepping up a big step cause pain into the pubic region. Functional Limitations- Recreation/ limited with recreational Hobbies activies due to pain in the pubic bone PT-OP-C Subjective Start: 01/11/20 12:48 Freq: Status: Active Protocol: Document 03/29/20 17:47 AMH (Rec: 03/29/20 17:55 AMH [id number]) OP-PT Subjective Patient Comments Patient Comments Breanne reports she had her nerve block of the ilioinguinal nerve on the left side 2 days ago. She reports she did not get relief with this and now feels less stable in her pubic joint. She has been wearing her SI belt. PT-OP-I Pelvic Floor Start: 01/11/20 12:48 Freq: Status: Active Protocol: Document 01/11/20 12:45 AM[facility] (Rec: 01/18/20 15:03 [facility] [id number]) Pelvic Floor Assessment Pelvic Clock Pelvic Clock 6-9 Guarding,Tenderness Pelvic Clock 9-12 Guarding,Tenderness Pelvic Clock Other pain at the transverse perineal musculatre on the left , this reproduces the pain that Breanne reports stopped her from having intercourse Comments Pelvic Floor Comments pt is able to contract all areas of the pelvic floor and levator ani musculature however she has difficutly with relaxation following contraction. PT-OP-J Posture/Palpation/Skin Start: 01/11/20 12:48 Freq: Status: Active Protocol: Document 01/11/20 12:45 AMH (Rec: 01/18/20 14:59 [facility] [id number]) Palpation Assessment Location Five Palpation Location right piriformis and gluteals Palpation Findings Soft Tissue Tightness, Tenderness Four Palpation Location left gluteals and piriformis Palpation Findings Soft Tissue Tightness Three Palpation Location left sacral AWILDA and Left PSIS, right sacral base Palpation Findings Tenderness Two Palpation Location left adductos Palpation Findings Muscle Guarding,Tenderness Palpation Details guarding of the adductors One Palpation Location pubic bone left side Palpation Details tenderness to palpation PT-OP-M Strength Start: 01/11/20 12:48 Freq: Status: Active Protocol: Document 01/11/20 12:45 AMH (Rec: 01/18/20 15:04 [facility] [id number]) Trunk Strength Trunk Manual Muscle Testing Core Stabilization + ASLR test on the right for left side unlocking of the SI joint. The transverse abodominal muscle is contraction however the SI is still not fully supported due to ligamentous instability at the pubic bone PT-OP-Q Treatments Start: 01/11/20 12:48 Freq: Status: Active Protocol: Document 03/29/20 17:47 AMH (Rec: 03/29/20 17:55 [facility] [id number]) Manual Therapy Treatment Soft Tissue Mobilization adductor release B Body Location adductor release bilaterally 4 Body Location pelvic diaphragm MFR technique 2 Body Location MFR in the suprapubic fascia Comments tightness noted superior to the pubic bone B, tenderness to palpation PT-OP-T Assessment and Plan Start: 01/11/20 12:48 Freq: Status: Active Protocol: Document 03/29/20 17:47 AMH (Rec: 03/29/20 17:55 [facility] [id number]) Physical Therapy Assessment Goals Five Impairment lacks higher level dynamic stabilzation program Short Term Goal (STG) Breanne is instructed in and is able to tolerate a higher level dynamic stabilization program for core stability. Breanne has only been able to tolerate isloation of her pelvic floor muscles only as dynamic stabilization throws off her pubic symphysis. STG Duration 6 weeks Four Impairment The patient lacks a home program for SI and pubic bone stabilization Short Term Goal (STG) Breanne will be given a home program for SI and pubic bone stabilization including pelvic floor training for the pubic bone and transverse abdominal training for the SI STG Duration 6 weeks Shelter Goal (LTG) Goal MET: Breanne is working on a home program and is able to facilitate her pelvic floor now Three Impairment Transverse perineal and levator ani guarding and spasm Shelter Goal (LTG) Breanne is able to fully relax her pelvic floor at rest and there is a overall decrease in levator ani guarding in the pelvic clock and transverse perineal muscle Breanne had made some progress with this however she was guarded again following the nerve block. Two Impairment muscle guarding and spasm of bilateral adductors Short Term Goal (STG) With manual therapy techniques and stretching there is no longer spasm and tenderness to palpation of the adductor musculature Again Breanne had made some progress but is now guarded again following nerve injection. STG Duration 4 weeks One Impairment pain at the pubic bone and pelvic floor with sitting and sit-stand Shelter Goal (LTG) Breanne reports no pain in sitting and is able to transfer from sit-stand without pain LTG Duration 8 weeks Assessment Summary Assessment Breanne showed increased guarding today of her adductors and pelvic floor. She gets relief with wearing a SI belt. I feel she is unstable at the pubic symphysis and needs further assistance with stabilization here. Prolotherapy was recommended to her by a specialist she saw a few years ago. I feel this may be a good fit for her. She does not have any further PT visits scheduled. We worked on calming down her pelvic floor muscle spasms and adductor spasms after her cortisone injection into the pubic symphysis flared her up. Now she seems to be flared again following the nerve block. She is describing more symptoms of pubic seperation. I am happy to continue PT to help with the guarding of her muscles but feels she needs further assessment for pubic symphysis stabilization via prolotherapy. Physical Therapy Plan Frequency and Duration Frequency of Treatment 2x/Week Duration of Treatment 8 Plan of Care Start Date 03/29/20 Plan of Care End Date 05/17/20 Therapeutic Interventions Therapeutic Interventions Home Exercise Program,Manual Therapy,Patient/Caregiver Education,Self-Care/Home Management,Soft Tissue Mobilization,Therapeutic Exercises Modalities Biofeedback Next Visit Focus/Plan Next Note Type Treatment Note Next Visit Plan continue to work on stabilization exercises for the SI joint.
--- NOTE | 2020-04-03 18:53 | PT.OPPOC ---
Physical, Occupational & Speech Therapy At [facility] Current Diagnoses Osteomyelitis, unspecified (03/29/20) Visit Care Team Role Provider Type Jayleen Crabtree MD Primary Care Provider Non-Staff Specialty: Internal Medicine Address: [address] [place] [address], [id number] Email: [email or web address] Sathish Craig MD Attending Provider Physician Referring Provider Specialty: Orthopedic Surgery Address: [address] [place] [address], [id number] Email: [email or web address] Plan Of Care PT-OP-T Assessment and Plan Start: 01/11/20 12:48 Freq: Status: Active Protocol: Document 03/29/20 17:47 AMH (Rec: 03/29/20 17:55 AM[facility] [email or web address]) Physical Therapy Assessment Goals Five Impairment lacks higher level dynamic stabilzation program Short Term Goal (STG) Breanne is instructed in and is able to tolerate a higher level dynamic stabilization program for core stability. Breanne has only been able to tolerate isolation of her pelvic floor muscles only as dynamic stabilization throws off her pubic symphysis. STG Duration 6 weeks Four Impairment The patient lacks a home program for SI and pubic bone stabilization Short Term Goal (STG) Breanne will be given a home program for SI and pubic bone stabilization including pelvic floor training for the pubic bone and transverse abdominal training for the SI STG Duration 6 weeks Group Home Goal (LTG) Goal MET: Breanne is working on a home program and is able to facilitate her pelvic floor now Three Impairment Transverse perineal and levator ani guarding and spasm Real Estate Office Manager Goal (LTG) Breanne is able to fully relax her pelvic floor at rest and there is a overall decrease in levator ani guarding in the pelvic clock and transverse perineal muscle Breanne had made some progress with this however she was guarded again following the nerve block. Two Impairment muscle guarding and spasm of bilateral adductors Short Term Goal (STG) With manual therapy techniques and stretching there is no longer spasm and tenderness to palpation of the adductor musculature Again Breanne had made some progress but is now guarded again following nerve injection. STG Duration 4 weeks One Impairment pain at the pubic bone and pelvic floor with sitting and sit-stand Group Home Goal (LTG) Breanne reports no pain in sitting and is able to transfer from sit-stand without pain LTG Duration 8 weeks Assessment Summary Assessment Breanne showed increased guarding today of her adductors and pelvic floor. She gets relief with wearing a SI belt. I feel she is unstable at the pubic symphysis and needs further assistance with stabilization here. Prolotherapy was recommended to her by a specialist she saw a few years ago. I feel this may be a good fit for her. She does not have any further PT visits scheduled. We worked on calming down her pelvic floor muscle spasms and adductor spasms after her cortisone injection into the pubic symphysis flared her up. Now she seems to be flared again following the nerve block. She is describing more symptoms of pubic separation. I am happy to continue PT to help with the guarding of her muscles but feels she needs further assessment for pubic symphysis stabilization via prolotherapy. Physical Therapy Plan Frequency and Duration Frequency of Treatment 2x/Week Duration of Treatment 8 Plan of Care Start Date 03/29/20 Plan of Care End Date 05/17/20 Therapeutic Interventions Therapeutic Interventions Home Exercise Program,Manual Therapy,Patient/Caregiver Education,Self-Care/Home Management,Soft Tissue Mobilization,Therapeutic Exercises Modalities Biofeedback Next Visit Focus/Plan Next Note Type Treatment Note Next Visit Plan continue to work on stabilization exercises for the SI joint. Plan of Care Dates Plan of Care Start Date 03/29/20 Plan of Care End Date 05/17/20 Electronically Signed by: Melia Rivera, PT 04/03/20 [id number] Please Sign and Return: I have reviewed this Plan of Care and certify that the skilled therapy services above are required to meet the patient?s needs. Physician Signature Date Printed Name and Credentials Clinical Instructor Signature Printed Name and Credentials
--- NOTE | 2020-04-10 18:21 | PT.OTN ---
Current Diagnoses Osteomyelitis, unspecified (04/05/20) Physical Therapy Treatment Note PT-OP-A Visit Information Start: 01/11/20 12:48 Freq: Status: Active Protocol: Document 04/05/20 10:38 AMH (Rec: 04/05/20 17:05 [facility] [id number]) Out-Patient Physical Therapy Visit Information Visit Information Visit Type Treatment Note Visit Start Time 10:30 Visit Stop Time 11:15 Total Visit Minutes 45 Visit Number 13 PT-OP-B Current Condition Start: 01/11/20 12:48 Freq: Status: Active Protocol: Document 01/11/20 12:48 AMH (Rec: 01/11/20 13:01 AMH [id number]) Current Condition History of Current Condition Current Complaints sharp pain in her pubic bone History of Current 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 Dr. Jonas wanted to treat her back, he sent her to doctor juan david. He did a steriod shot in her pubic bone and it didn' t help, for 2 days it helped but then things got bad again. She feels like pain has gotten worse. Now she has left sided pelvic floor, mostly in the left groin region and at the pubic bone. Under the joint and at the bottem. The pelvic floor pain had gone away but now afer the cortsione injection she has had constant pain midline pubic bone. Now pain wakes her up at night. Still trying to do some of the stabilization exercises but she feels very guarded in her pelvic floor. Past medical history includes history of breast cancer, back pain, osteopenia Treatment Goals Patient/Caregiver Goals Pt's goals are to reduce pain and to be able to continue being active. Prior Functional Status Baseline Function- ADL's Independent Baseline Function- Mobility Independent Current Functional Impairments (Reported) Functional Limitations- ADL's Pain with sitting in the pelvic floor region Functional Limitations- Mobility/Gait pain increased with walking and movements such as sit to stand. Uneven movements such as stepping up a big step cause pain into the pubic region. Functional Limitations- Recreation/ limited with recreational Hobbies activies due to pain in the pubic bone PT-OP-C Subjective Start: 01/11/20 12:48 Freq: Status: Active Protocol: Document 04/05/20 10:38 AMH (Rec: 04/05/20 10:43 [facility] [id number]) OP-PT Subjective Patient Comments Patient Comments Breanne reports that after the nerve block her pelvic floor seems to be in spasm and painful. She reports there is decreased support at the pubic bone and she can feel it pulling apart. She is liking the SI belt and it seems to help. She is also wishing to try a different PT that may have a new approach to look at her SI Patient Reported Progress Same PT-OP-I Pelvic Floor Start: 01/11/20 12:48 Freq: Status: Active Protocol: Document 01/11/20 12:45 AMH (Rec: 01/18/20 15:03 [facility] [id number]) Pelvic Floor Assessment Pelvic Clock Pelvic Clock 6-9 Guarding,Tenderness Pelvic Clock 9-12 Guarding,Tenderness Pelvic Clock Other pain at the transverse perineal musculatre on the left , this reproduces the pain that Breanne reports stopped her from having intercourse Comments Pelvic Floor Comments pt is able to contract all areas of the pelvic floor and levator ani musculature however she has difficutly with relaxation following contraction. PT-OP-J Posture/Palpation/Skin Start: 01/11/20 12:48 Freq: Status: Active Protocol: Document 01/11/20 12:45 AMH (Rec: 01/18/20 14:59 [facility] [id number]) Palpation Assessment Location Five Palpation Location right piriformis and gluteals Palpation Findings Soft Tissue Tightness, Tenderness Four Palpation Location left gluteals and piriformis Palpation Findings Soft Tissue Tightness Three Palpation Location left sacral AWILDA and Left PSIS, right sacral base Palpation Findings Tenderness Two Palpation Location left adductos Palpation Findings Muscle Guarding,Tenderness Palpation Details guarding of the adductors One Palpation Location pubic bone left side Palpation Details tenderness to palpation PT-OP-M Strength Start: 01/11/20 12:48 Freq: Status: Active Protocol: Document 01/11/20 12:45 AMH (Rec: 01/18/20 15:04 [facility] [id number]) Trunk Strength Trunk Manual Muscle Testing Core Stabilization + ASLR test on the right for left side unlocking of the SI joint. The transverse abodominal muscle is contraction however the SI is still not fully supported due to ligamentous instability at the pubic bone PT-OP-Q Treatments Start: 01/11/20 12:48 Freq: Status: Active Protocol: Document 04/05/20 10:38 AMH (Rec: 04/10/20 18:16 [facility] [id number]) Manual Therapy Treatment Soft Tissue Mobilization adductor release B Body Location adductor release bilaterally Comments left greater than right adductor spasm 4 Body Location pelvic diaphragm MFR technique 2 Body Location MFR in the suprapubic fascia Comments tightness noted superior to the pubic bone B, tenderness to palpation Self-Care/Home Management Treatment Education Patient Education Home Exercise Program Other Education Pt's HEP was reviewed today for stabilization of her SI joint. She demonstrates good knowledge of her HEP PT-OP-T Assessment and Plan Start: 01/11/20 12:48 Freq: Status: Active Protocol: Document 04/05/20 10:38 [facility] (Rec: 04/10/20 18:16 [facility] [id number]) Physical Therapy Assessment Assessment Summary Assessment Breanne has been seen for 13 visits in PT this round. She initially came back to PT after a cortisone injection into her pubic symphysis which flared her up and caused increased guarding of her adducors and pelvic floor muscles. She then under went a nerve block on the left ilioinguinal or iliohypergastric nerve ( pt not sure which one and I don't have a report). This caused a additional flare and more feelings of seperation at the pubic symphysis. I feel she has instability at the pubic symphysis and needs external stabilization. She does well with a SI belt which I dispensed to her however when we work on core stability exercises she ends up guarding in her pelvic floor. She is a good candidate for prolotherapy. She will be discharged at this time as she would like to try a different PT with new approach. Physical Therapy Plan Discharge Physical Therapy Discharge Reasons Plateau in Progress Discharge Comments DC PT due to pt requesting discharge and plateau in symptoms with PT
== END 2020-09-28 09:52 | disposition home or self-care (01) ==
LOC: PHYS 10:30
PROVIDERS: PCP Internal Medicine; Referring Provider Orthopaedic Surgery Orthopaedic Surgery of the Spine; Visit Provider Orthopaedic Surgery Orthopaedic Surgery of the Spine
DX: M86.9 Osteomyelitis, unspecified (principal)
CPT/HCPCS: 97110; 97140; 97161

== ENCOUNTER → 2020-06-22 09:31 | Outpatient (CLI) | payer MEDICARE, OTHER, SELFPAY ==
--- NOTE | 2020-06-22 09:36 | DI.MG.S_ITS ---
UNILATERAL RIGHT DIGITAL SCREENING MAMMOGRAM 3D/2D WITH CAD POST MASTECTOMY: 06/22/2020 CLINICAL: Routine screening. Personal history of left breast cancer. Family history of breast cancer. Comparison is made to exams dated: 06/21/2019 mammogram - [facility], 04/26/2018 mammogram - [facility], and 04/22/2017 mammogram - [facility]. There are scattered fibroglandular elements in right breast. Current study was also evaluated with a Computer Aided Detection (CAD) system. No significant masses, calcifications, or other findings are seen in the breast. There has been no significant interval change. IMPRESSION: NEGATIVE There is no mammographic evidence of malignancy. A 1 year screening mammogram is recommended. This exam was interpreted at Station ID: [id number]. NOTE: For mammograms, a report in lay terms will be sent to the patient. Approximately 15% of breast malignancies will not be visualized mammographically. In the management of a palpable breast mass, a negative mammogram must not discourage biopsy of a clinically suspicious lesion. Electronically Signed By: Henok valencia/traci:06/27/2020 07:52:19 letter sent: Normal Exam ACR BI-RADS Category 1: Negative [id number]
== END ==
PROVIDERS: PCP Internal Medicine; Referring Provider Internal Medicine; Visit Provider Internal Medicine
DX: Z12.31 Encounter for screening mammogram for malignant neoplasm of breast (principal); Z85.3 Personal history of malignant neoplasm of breast; Z80.3 Family history of malignant neoplasm of breast
CPT/HCPCS: 77063; 77067

== ENCOUNTER → 2020-07-04 09:35 | Outpatient (CLI) | payer MEDICARE, OTHER, SELFPAY ==
[2020-07-04 10:29] LABS: COVID19 -Nasal RAPID Negative (Negative)
== END ==
PROVIDERS: PCP Internal Medicine; Visit Provider Surgery
DX: Z01.812 Encounter for preprocedural laboratory examination (principal); Z20.822 Contact with and (suspected) exposure to COVID-19
CPT/HCPCS: 87635; C9803

== ENCOUNTER 2020-07-05 10:50 | Day surgery (SDC) | payer MEDICARE, OTHER, SELFPAY ==
[2020-07-05] VITALS (7 sets, daily range): BP systolic 108–137; BP diastolic 53–93; PULSE 61–89; RESP 12–17; TEMP 36.2; O2SAT 96–100; BMI 23.3
[2020-07-05] MEDS: LACTATED RINGERS 1,000 ML 200 ML IV (12:28)
--- NOTE | 2020-07-05 13:16 | P.HP_ITS ---
History of Present Illness History of Present Illness Date Patient Seen: 07/05/20 Time Patient Seen: 13:16 Chief complaint: SDC Narrative: The patient presents for colorectal sreening. He had previous colonoscopy most recently by years ago that was significant for polyps. No personal or family history of colon cancer. On further history denies any recent gastrointestinal symptoms. No nausea, vomiting, abdominal pain, loss of appetite, unexplained weight loss, change in bowel habits, diarrhea, constipation, melena, hematochezia, or bright red blood per rectum. Patient History Surgical History H/O section H/O mastectomy H/O oophorectomy Family & Social History Social History: household members spouse Tobacco & Substance use: Smoking Status Never smoker alcohol intake current alcohol intake frequency 0-2 drinks per day Substance Use Type does not use Meds Home Medications and Allergies Home Medications Medication Instructions Recorded Confirmed Type metoprolol tartrate 25 mg tablet 37.5 mg PO DAILY tab 12/05/19 07/05/20 History duloxetine 30 mg PO DAILY 07/05/20 07/05/20 History Allergies Allergy/AdvReac Type Severity Reaction Status Date / Time No Known Drug Allergies Allergy Verified 07/05/20 11:59 Review of Systems Review of Systems Narrative: A 10 point review of systems is negative except as noted in the HPI Exam Vital Signs (past 8 hours): - 07/05/20 12:18 Temperature 97.2 F L Pulse Rate 63 Respiratory Rate 16 Blood Pressure 129/76 Pulse Oximetry 100 Oxygen Delivery Method Room Air Narrative Exam Narrative: General-no acute distress, well nourished adult woman HEENT-moist mucous membranes, no scleral icterus Neck-supple, no lymphadenopathy Chest- non labored respirations, clear to auscultation bilaterally Cardiac-regular rate no peripheral edema Abdomen-soft, nontender, non distended Extremities-warm, well perfused Neurological-alert and oriented, no focal deficits Assessment & Plan Assessment and plan (1) Screening for colon cancer: Status: Acute Assessment & Plan narrative: The patient requires colorectal screening and colonoscopy is recommended. Technical details were discussed. Risks, benefits, alternatives explained. Risks including but not limited to myocardial infarction, aspiration, bleeding, pain, missed lesion, incomplete examination, need for further radiographic studies, colonic perforation, and need for major abdominal surgery were discussed. All questions were answered to their sat isfaction, and they are in agreement with this plan.
[2020-07-05] MEDS: MIDAZOLAM 5 MG/5 ML VIAL IV (13:19)
[2020-07-05] MEDS: fentaNYL 250 MCG/5 ML INJ IV (13:20)
--- NOTE | 2020-07-05 13:48 | P.OP.ENDO_ITS ---
Operative Date/Time/Diagnoses Date of procedure: 07/05/20 Time of procedure: 13:48 Pre-op diagnosis: Personal history of colonic polyps Post-op diagnosis: same Procedure & Clinicians Study performed: Colonoscopy Same procedure as scheduled: Yes Indications: 65-year-old woman personal history of colonic polyps here for screening colonoscopy Surgeon: Leif Collins Procedure Notes Procedure in detail: Medications: Conscious sedation using 5mg IV midazolam and 150mcg IV of fentanyl The history and physical was performed/updated and the patient is ASA class is 2. The procedure was discussed in detail with the patient. Potential risks co mplications including infection, bleeding, missed diagnosis, perforation, need for surgery, and were explained. Their questions were answered and informed consent was obtained. Patient was brought to the procedure room and placed standard monitoring equipment. The patient's vital signs were monitored continuously throughout the entire procedure. Prior to starting time-out was performed. The patient was placed in the left lateral recumbent position. Procedural sedation was administered. Examination began with a thorough inspection of the perianal area there was no evidence of fissures, fistulae, external hemorrhoids or cutaneous malignancy. The colonoscopy scope was then placed into the anal canal and was advanced to the cecum, which was identified by the ileocecal valve, the appendiceal orifice and the confluence of the taenia. The scope was then slowly withdrawn examining colon thoroughly in all directions, irrigating it of any residual stool. No masses or polyps Sigmoid diverticulosis Prior polypectomy sites observed The patient tolerated the procedure well. They will be discharged once criteria are met. The prep was of good/excellent quality. The withdrawl time was minutes. The sedation time was * minutes. Scope withdrawal time: 7 Sedation minutes: 25 Specimen(s): none sent Complications: none Impression: Normal colonoscopy Post-procedure Recommendations: Colonscopy in 10 years Disposition: same day surgery
== END 2020-07-05 14:32 | disposition home or self-care (01) ==
PROVIDERS: PCP Internal Medicine; Referring Provider Internal Medicine; Visit Provider Surgery
PROC: 0DJD8ZZ Inspection of Lower Intestinal Tract, Via Natural or Artificial Opening Endoscopic (ICD-10-PCS; CPT 45378; principal; 2020-07-05 13:00)
DX: Z12.11 Encounter for screening for malignant neoplasm of colon (principal); Z86.010 Personal history of colon polyps; K57.30 Diverticulosis of large intestine without perforation or abscess without bleeding
CPT/HCPCS: G0105; 99152; J2250; J3010

== ENCOUNTER → 2021-06-26 17:20 | Outpatient (CLI) | payer MEDICARE, OTHER, SELFPAY ==
--- NOTE | 2021-06-26 | DI.MG.S_ITS ---
UNILATERAL RIGHT DIGITAL SCREENING MAMMOGRAM 3D/2D WITH CAD: 06/26/2021 CLINICAL: Routine screening. Personal history of left breast cancer. Family history of breast cancer. Comparison is made to exams dated: 06/22/2020 mammogram, 06/21/2019 mammogram - [facility], and 04/26/2018 mammogram - [facility]. There are scattered fibroglandular elements in right breast. Current study was also evaluated with a Computer Aided Detection (CAD) system. No significant masses, calcifications, or other findings are seen in the breast. There has been no significant interval change. IMPRESSION: NEGATIVE There is no mammographic evidence of malignancy. A 1 year screening mammogram is recommended. This exam was interpreted at Station ID: [id number]. NOTE: For mammograms, a report in lay terms will be sent to the patient. Approximately 15% of breast malignancies will not be visualized mammographically. In the management of a palpable breast mass, a negative mammogram must not discourage biopsy of a clinically suspicious lesion. Electronically Signed By: Hamzah carpio/traci:06/27/2021 09:36:20 letter sent: Normal Exam ACR BI-RADS Category 1: Negative 3341F
== END ==
PROVIDERS: PCP Internal Medicine; Referring Provider Physician Assistant; Visit Provider Physician Assistant
DX: Z12.31 Encounter for screening mammogram for malignant neoplasm of breast (principal); Z85.3 Personal history of malignant neoplasm of breast; Z80.3 Family history of malignant neoplasm of breast
CPT/HCPCS: 77063; 77067

== ENCOUNTER → 2022-06-28 12:18 | Outpatient (CLI) | payer MEDICARE, OTHER, SELFPAY ==
--- NOTE | 2022-06-28 12:22 | DI.MG.S_ITS ---
UNILATERAL RIGHT DIGITAL SCREENING MAMMOGRAM 3D/2D WITH CAD: 06/28/2022 CLINICAL: Routine screening. Personal history of left breast cancer. Family history of breast cancer. Comparison is made to exams dated: 06/26/2021 mammogram, 06/22/2020 mammogram, and 06/21/2019 mammogram - [facility]. There are scattered areas of fibroglandular density in the right breast (category b / 25%-50% glandular tissue). Current study was also evaluated with a Computer Aided Detection (CAD) system. There are benign vascular calcifications in the right breast. No significant masses, calcifications, or other findings are seen in the breast. There has been no significant interval change. IMPRESSION: BENIGN There is no mammographic evidence of malignancy. A 1 year screening mammogram is recommended. This exam was interpreted at Station ID: [id number]. NOTE: For mammograms, a report in lay terms will be sent to the patient. Approximately 15% of breast malignancies will not be visualized mammographically. In the management of a palpable breast mass, a negative mammogram must not discourage biopsy of a clinically suspicious lesion. Electronically Signed By: Linda gleason/traci:06/30/2022 13:27:17 letter sent: Normal Exam ACR BI-RADS Category 2: Benign Finding(s) 3342F
== END ==
PROVIDERS: PCP Internal Medicine; Referring Provider Internal Medicine; Visit Provider Internal Medicine
DX: Z12.31 Encounter for screening mammogram for malignant neoplasm of breast (principal); Z85.3 Personal history of malignant neoplasm of breast; Z80.3 Family history of malignant neoplasm of breast
CPT/HCPCS: 77063; 77067

== ENCOUNTER → 2022-07-10 08:55 | Outpatient (CLI) | payer MEDICARE, OTHER, SELFPAY ==
[2022-07-10 10:26] LABS: Cholesterol 220 mg/dL (140-199); HDL Cholesterol 82 mg/dL (40-60); LDL Cholesterol Calculated 122 mg/dL (<100); Triglycerides 79 mg/dL (35-150)
[2022-07-11 08:25] LABS: Apolipoprotein B 100 mg/dL (<90)
== END ==
LOC: RAD 08:57 → LAB 08:58
PROVIDERS: PCP Internal Medicine; Referring Provider Nurse Practitioner; Visit Provider Nurse Practitioner
DX: I25.10 Atherosclerotic heart disease of native coronary artery without angina pectoris (principal)
CPT/HCPCS: 36415; 80061; 82172

== ENCOUNTER → 2022-08-25 09:11 | Outpatient (CLI) | payer MEDICARE, OTHER, SELFPAY ==
--- NOTE | 2022-08-25 | DI.NM.S_ITS ---
PROCEDURE: NM JOSUE PERF SPECT REST & STR Rest and exercise myocardial perfusion SPECT with gated imaging and ejection fraction RADIOPHARMACEUTICAL: 10.9 mCi Tc-99m sestamibi IV at rest and 25.3 mCi Tc-99m sestamibi IV at peak exercise. A one day-protocol was performed. 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 SPECT images were obtained. SPECT myocardial perfusion images were displayed in short axis, horizontal long axis, and vertical long axis views. Gated images were reviewed using [employer] software. COMPARISON: None. CARDIAC STRESS: A standard Francisco Javier treadmill exercise tolerance test was performed by the patient under the supervision of an attending staff. The patient exercised for 7 minutes and 20 seconds; functional aerobic impairment (BASILIA) is -21%. Hemodynamic data: There is normal blood pressure and heart rate response to exercise stress. Patient achieved 88% of maximum predicted heart rate at peak exercise. Symptoms: Patient denied chest pain during exercise. EKG: No diagnostic EKG changes of ischemia; no ectopy. FINDINGS: Raw data: There is good myocardial labeling by radiotracer. No significant motion artifacts. Kwzb-kr-jntup ratio is 0.33 (normal is less than 0.38 for sestamibi tracer, and less than 0.50 for thallium tracer). Left ventricle function: Gated images demonstrate normal left ventricle wall thickening. No segmental wall motion abnormality. No transient ischemic dilation; TID is 0.94 (normal less than 1.3). The left ventricle resting end-diastolic volume is 98mL. Left ventricle stress ejection fraction is 74%; normal values are above 45%. Myocardial perfusion: No perfusion defects on stress prone imaging. IMPRESSION: Low risk, normal treadmill nuclear stress test 1) No perfusion evidence of ischemia or infarction. 2) Normal left ventricular size, wall motion, and systolic function (EF post stress 74%). 3) No diagnostic ST changes during exercise or with recovery. 4) No angina during the study. 5) Good exercise tolerance (7.3 METs, BASILIA -21%). Target heart rate achieved. Appropriate BP response to exercise. 6) No prior nuclear stress test available for comparison. Dictated by: Meaghan Barnhart MD on 08/26/2022 at 15:36 Approved by: Meaghan Barnhart MD on 08/26/2022 at 15:39
== END ==
PROVIDERS: PCP Internal Medicine; Referring Provider Nurse Practitioner; Visit Provider Nurse Practitioner
DX: I25.10 Atherosclerotic heart disease of native coronary artery without angina pectoris (principal)
CPT/HCPCS: 78452; 93017; A9502

== ENCOUNTER → 2022-10-09 09:53 | Outpatient (CLI) | payer MEDICARE, OTHER, SELFPAY ==
[2022-10-09 13:04] LABS: Cholesterol 170 mg/dL (140-199); HDL Cholesterol 87 mg/dL (40-60); LDL Cholesterol Calculated 73 mg/dL (<100); Triglycerides 49 mg/dL (35-150)
== END ==
PROVIDERS: PCP Nurse Practitioner; Referring Provider Internal Medicine Cardiovascular Disease; Visit Provider Internal Medicine Cardiovascular Disease
DX: I25.10 Atherosclerotic heart disease of native coronary artery without angina pectoris (principal); I48.0 Paroxysmal atrial fibrillation; E78.00 Pure hypercholesterolemia, unspecified
CPT/HCPCS: 36415; 80061

== ENCOUNTER → 2023-07-06 15:17 | Outpatient (CLI) | payer MEDICARE, OTHER, SELFPAY ==
--- NOTE | 2023-07-06 15:19 | DI.RAD.S_ITS ---
Bone Density Report Name: MARYCHUY RAMOS Age: 68 Sex: Female Ethnicity: White Date of : 1955 Indication: postmenopausal; screening for osteoporosis; Referring Provider: CELINE SANCHEZ Study: Bone densitometry was performed. Exam Date: July 06, 2023 Accession number: [id number] Bone Density: Region BMD T-score Z-score Classification AP Spine(L1-L4) 0.906 -1.3 0.8 Osteopenia Femoral Neck (Left) 0.634 -1.9 -0.2 Osteopenia Total Hip (Left) 0.872 -0.6 0.9 Normal Femoral Neck (Right) 0.710 -1.3 0.5 Osteopenia Total Hip (Right) 0.822 -1.0 0.5 Normal Total Hip Mean 0.847 -0.8 0.7 Normal World Health Organization criteria for BMD impression classify patients as: Normal (T-score at or above -1.0), Osteopenia (T-score between -1.0 and -2.5), or Osteoporosis (T-score at or below -2.5). 10-year Fracture Risk(1): Major Osteoporotic Fracture 11% Hip Fracture 2.0% Reported Risk Factors: [place] (), Neck BMD=0.634, BMI=24.0 (1) FRAX(R) Version 3.08. Fracture probability calculated for an untreated patient. Fracture probability may be lower if the patient has received treatment. Previous Exams: -- Region Exam Age BMD T-score BMD Change BMD Change Date g/cm2 vs Baseline vs Previous -- AP Spine (L1-L4) 07/06/2023 68 0.906 -1.3 -0.080 (-8.1%)# -0.080 (-8.1%)# 06/24/2019 64 0.986 -0.6 Total Hip(Left) 07/06/2023 68 0.872 -0.6 -0.019 (-2.1%)# -0.019 (-2.1%)# 06/24/2019 64 0.892 -0.4 Total Hip(Right) 07/06/2023 68 0.822 -1.0 -0.040 (-4.7%)# -0.040 (-4.7%)# 06/24/2019 64 0.862 -0.7 -- *Denotes significance at 95% confidence level, LSC for AP Spine = 0.022 g/cm2, LSC for Total Hip = 0.027 g/cm2 # Denotes dissimilar scan types or analysis methods Impression: The patient has low bone mass, based on the Left Femoral Neck T-score. The patient has an estimated ten-year risk of hip fracture of 2% and an estimated ten-year risk of major fracture of 11%, based on the WHO FRAX algorithm. No significant bone loss was observed. Discussion: BONE DENSITY IS LOW AT ONE OR MORE SKELETAL SITES. This patient's lowest T-score is low at one or more skeletal sites. It meets the World Health Organization's (WHO) criteria for low bone mass (T-score between -1.0 and -2.5). The patient's 10-year risk of fracture as calculated by FRAX is less than the threshold where pharmacological therapy is recommended by the National Osteoporosis Foundation (NOF). However, all treatment decisions require clinical judgment and consideration of individual patient factors, including patient preferences, comorbidities, previous drug use, risk factors not captured in the FRAX model (e.g., frailty, falls, vitamin D deficiency, increased bone turnover, interval significant decline in bone density) and possible under or overestimation of fracture risk by FRAX. The patient should follow a healthful lifestyle (good nutrition with adequate calcium and vitamin D, and appropriate weight-bearing exercise). Follow-Up: Consider repeating this study in 2 to 3 years to reassess this patient's status, or sooner if there is some new clinical indication. Reported by: DWAINE PENDLETON M.D. on 07/06/2023 3:44:00 PM.
== END ==
PROVIDERS: PCP Nurse Practitioner; Referring Provider Nurse Practitioner; Visit Provider Nurse Practitioner
DX: M81.0 Age-related osteoporosis without current pathological fracture (principal)
CPT/HCPCS: 77080

== ENCOUNTER → 2023-07-08 16:30 | Outpatient (CLI) | payer MEDICARE, OTHER, SELFPAY ==
--- NOTE | 2023-07-08 | DI.MG.S_ITS ---
UNILATERAL RIGHT DIGITAL SCREENING MAMMOGRAM 3D/2D WITH CAD: 07/08/2023 CLINICAL: Routine screening. Family history of breast cancer. Breast cancer. Comparison is made to exams dated: 06/28/2022 mammogram, 06/26/2021 mammogram, and 06/22/2020 mammogram - [facility]. The right breast is heterogeneously dense, which may obscure small masses (category c / 51-75% glandular tissue). Current study was also evaluated with a Computer Aided Detection (CAD) system. There are benign vascular calcifications in the right breast. No significant masses, calcifications, or other findings are seen in the breast. There has been no significant interval change. IMPRESSION: BENIGN There is no mammographic evidence of malignancy. A 1 year screening mammogram is recommended. This exam was interpreted at Station ID: [id number]. NOTE: For mammograms, a report in lay terms will be sent to the patient. Approximately 15% of breast malignancies will not be visualized mammographically. In the management of a palpable breast mass, a negative mammogram must not discourage biopsy of a clinically suspicious lesion. Electronically Signed By: Yahir donahue/traci:07/09/2023 10:31:38 letter sent: Normal Exam ACR BI-RADS Category 2: Benign Finding(s) 3342F
== END ==
PROVIDERS: PCP Nurse Practitioner; Referring Provider Nurse Practitioner; Visit Provider Nurse Practitioner
DX: Z12.31 Encounter for screening mammogram for malignant neoplasm of breast (principal); Z80.3 Family history of malignant neoplasm of breast; Z85.3 Personal history of malignant neoplasm of breast; R92.331 Mammographic heterogeneous density, right breast
CPT/HCPCS: 77063; 77067

== ENCOUNTER → 2024-02-09 09:58 | Outpatient (CLI) | payer MEDICARE, OTHER, SELFPAY ==
[2024-02-09 11:04] LABS: Alanine Aminotransferase 16 IU/L (<35); Albumin 3.9 g/dL (3.5-5.0); Albumin Globulin Ratio 1.4 (1.0-2.8); Alkaline Phosphatase 58 U/L (38-126); Aspartate Aminotransferase 23 IU/L (14-36); BUN Creatinine Ratio 18.9 (6-22); Bilirubin Total 0.6 mg/dL (0.2-1.3); Blood Urea Nitrogen 18 mg/dL (7-17); Calcium 9.3 mg/dL (8.4-10.2); Carbon Dioxide 29 mmol/L (22-32); Chloride 103 mmol/L (98-107); Cholesterol 152 mg/dL (140-199); Estimated Glomerular Filt Rate > 60 mL/min (>60); Globulin 2.8 g/dL (1.7-4.1); Glucose 109 mg/dL (80-110); HDL Cholesterol 68 mg/dL (40-60); HEMOLYSIS < 15 (0-50); LDL Cholesterol Calculated 71 mg/dL (<100); Potassium 4.2 mmol/L (3.4-5.1); Sodium 135 mmol/L (137-145); Total Protein 6.7 g/dL (6.3-8.2); Triglycerides 64 mg/dL (35-150); VLDL Cholesterol Calculated 13 mg/dL (2-30)
== END ==
LOC: LAB 10:00
PROVIDERS: PCP Internal Medicine; Referring Provider Nurse Practitioner; Visit Provider Nurse Practitioner
DX: E78.5 Hyperlipidemia, unspecified (principal); I25.10 Atherosclerotic heart disease of native coronary artery without angina pectoris
CPT/HCPCS: 36415; 80053; 80061

== ENCOUNTER → 2024-07-12 17:14 | Outpatient (CLI) | payer MEDICARE, OTHER, SELFPAY ==
[2024-07-13 16:06] LABS: Influenza A - CEPHEID Flu A NEGATIVE (NEGATIVE); Influenza B - CEPHEID Flu B NEGATIVE (NEGATIVE); Respiratory Syncytial Virus Negative (Negative)
[2024-07-13 16:11] LABS: COVID-19 CEPHEID 4-PLEX PCR Negative (Negative)
== END ==
PROVIDERS: PCP Internal Medicine; Visit Provider Student in an Organized Health Care Education/Training Program
DX: R05.1 Acute cough (principal)
CPT/HCPCS: 0241U

== ENCOUNTER 2024-07-15 09:53 | Emergency (ER) | payer MEDICARE, OTHER, SELFPAY ==
[2024-07-15] VITALS (7 sets, daily range): BP systolic 117–154; BP diastolic 56–82; PULSE 65–73; RESP 18–26; TEMP 37.3; O2SAT 92–98; BMI 23.1
--- NOTE | 2024-07-15 10:43 | DI.RAD.S_ITS ---
PROCEDURE: XR CHEST 1V INDICATIONS: Shortness of breath TECHNIQUE: One view of the chest was acquired. COMPARISON: [facility], , CHEST 2 VIEW, 05/02/2016, 21:36. FINDINGS: Surgical changes and devices: Left axillary lymph node dissection. Lungs and pleura: Lungs are clear. No pleural effusions or pneumothorax. Mediastinum: Mediastinal contours appear normal. Heart size is normal. Bones and chest wall: No suspicious bony lesions. Overlying soft tissues appear unremarkable. IMPRESSION: No acute cardiopulmonary abnormality is seen. Dictated by: Oni Bello M.D. on 07/15/2024 at 11:28 Approved by: Oni Bello M.D. on 07/15/2024 at 11:29
--- NOTE | 2024-07-15 10:48 | EKG_ITS ---
[address] [address] Test Date: 2024-07-15 Pat Name: Breanne Rodriguez Department: 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
[2024-07-15 10:57] LABS: Add Manual Diff / Slide Review NO; Basophils Absolute Auto 0 /uL (0-100); Basophils Percent Auto 0.9 % (0-2); Eosinophils Absolute Auto 0 /uL (0-450); Eosinophils Percent Auto 0.1 % (2-4); Hematocrit 41.2 % (36-46); Hemoglobin 14.2 g/dL (12.0-16.0); Lymphocytes Absolute Auto 700 /uL (1100-4500); Lymphocytes Percent Auto 14.9 % (25-40); Mean Corpuscular HGB Conc 34.4 % (30-36); Mean Corpuscular Hemoglobin 32.2 PG (26-34); Mean Corpuscular Volume 93.6 fL (80-100); Monocytes Absolute Auto 400 /uL (0-900); Monocytes Percent Auto 8.8 % (3-14); Neutrophils Absolute Auto 3300 /uL (1500-7000); Neutrophils Percent Auto 75.3 % (50-75); Platelet Count 168 X10^3/uL (150-400); Red Cell Distribution Width 12.4 % (11.6-14.8); White Blood Cell Count 4.4 X10^3/uL (4.5-11.0)
[2024-07-15 11:04] LABS: INR 1.5 (0.9-1.3); Prothrombin Time 16.5 SECONDS (9.4-12.5)
[2024-07-15 11:11] LABS: Lactate (Lactic Acid) 0.9 mmol/L (0.7-2.1)
[2024-07-15 11:12] LABS: Alanine Aminotransferase 24 IU/L (<35); Albumin 4.2 g/dL (3.5-5.0); Albumin Globulin Ratio 1.5 (1.0-2.8); Alkaline Phosphatase 67 U/L (38-126); Aspartate Aminotransferase 32 IU/L (14-36); BUN Creatinine Ratio 18.5 (6-22); Bilirubin Total 0.3 mg/dL (0.2-1.3); Blood Urea Nitrogen 17 mg/dL (7-17); Calcium 9.5 mg/dL (8.4-10.2); Carbon Dioxide 29 mmol/L (22-32); Chloride 100 mmol/L (98-107); Estimated Glomerular Filt Rate > 60 mL/min (>60); Globulin 2.8 g/dL (1.7-4.1); Glucose 144 mg/dL (80-110); HEMOLYSIS < 15 (0-50); Potassium 4.4 mmol/L (3.4-5.1); Sodium 138 mmol/L (137-145)
--- NOTE | 2024-07-15 11:21 | ED.SOB ---
HPI - SOB/Dyspnea General Chief Complaint: Shortness of Breath/Dyspnea Stated Complaint: poss pneumonia Time Seen by Provider: 07/15/24 11:14 Source: patient Mode of arrival: Wheelchair Limitations: physical limitation History of Present Illness HPI Narrative: Patient is a middle-aged individual with a history of atrial fibrillation (status post-ablation) who presents with dizziness and tingling in the arms. The symptoms began this morning upon getting out of bed. The patient reports having flu-like symptoms since Thursday, including a fever of 102?F for two days, which was managed with Tylenol and cold medicine. The patient was tested for COVID-19, RSV, and other infections, all of which were negative. The patient also reports diarrhea but no vomiting. The dizziness is described as a sensation of impending fainting rather than vertigo. The patient has a history of pneumonia and states that the current symptoms feel similar to previous pneumonia episodes. Medications: Eliquis (apixaban) twice daily. Past Medical History: Atrial fibrillation (status post-ablation), recurrent pneumonia. Allergies: None reported. Related Data Home Medications Medication Instructions Recorded Confirmed duloxetine 30 mg capsule,delayed 30 mg PO DAILY 07/05/20 04/08/23 release metoprolol succinate 25 mg 25 mg PO DAILY 04/08/23 07/12/24 tablet,extended release 24 hr rosuvastatin 10 mg tablet 10 mg PO ONCE PM 04/08/23 07/12/24 rivaroxaban 2.5 mg tablet (Xarelto) 2.5 mg PO BID 07/12/24 07/12/24 Previous Rx's Medication Instructions Recorded Mastectomy bra and left sided See Rx Instructions .Route 11/03/23 breast prosthesis .COMPLEX #5 ea Allergies Allergy/AdvReac Type Severity Reaction Status Date / Time No Known Drug Allergies Allergy Verified 07/12/24 17:01 Review of Systems Review of Systems Narrative: Constitutional: Reports fever, dizziness, and tingling in the arms. Respiratory: Reports non-productive cough, no shortness of breath. Gastrointestinal: Reports diarrhea, no vomiting. Patient History Medical History History of pneumonia History of fracture of left ankle History of osteopenia History of malignant neoplasm of left breast Surgical History H/O section H/O oophorectomy H/O mastectomy Social History (System 11/09/17 @ 13:24 by Jason Hernández) household members: spouse Smoking Status: Never smoker alcohol intake: current Smoking Status: Never smoker alcohol intake frequency: 0-2 drinks per day Exam Narrative Exam Narrative: General: Well appearing, well nourished, in no distress. Vital Signs: BP 120/80, HR 80, RR 16, Temp 98.6?F, O2 Sat 98% Skin: Good turgor, no rash, unusual bruising or prominent lesions. Head: Normocephalic, atraumatic. HEENT: Conjunctiva clear, EOM intact, PERRL, Mucous membranes moist. Neck: Supple, normal ROM. Heart: Regular rate and rhythm, no murmur or gallop or rubs. Lungs: Clear to auscultation. No rales, rhonchi, or wheezes. Abdomen: Soft and nontender. Bowel sounds normal. No mass or hernia. Back: Spine normal without deformity or tenderness, no CVA tenderness. Extremities: No deformities, edema. Peripheral pulses intact. Neurologic: CN 2-12 normal. Normal sensation and motor exam. Psychiatric: Oriented X3. Normal mood and affect. Initial Vital Signs Initial Vital Signs: Vital Signs Temperature 99.2 F 07/15/24 10:16 Pulse Rate 65 07/15/24 10:16 Respiratory Rate 19 07/15/24 10:16 Blood Pressure 117/56 L 07/15/24 10:16 Pulse Oximetry 92 07/15/24 10:16 Oxygen Delivery Method Room Air 07/15/24 10:16 Course Orders Ordered: ED Orders 07/15/24 10:43 XR chest 1V Stat EKG-12 Lead Stat Measure peak expiratory flow ONCE RT Consult Eval and Treat NOW 07/15/24 10:48 Complete Blood Count AUTO DIFF Stat Comprehensive Metabolic Panel Stat Lactate (Lactic Acid) Stat NT-proBNP (BNP-Adult 18+) Stat Prothrombin Time INR Stat Troponin I Stat Discontinued Medications Lactated Ringer's (Lactated Ringers) 1,000 mls @ 1,000 mls/hr IV BOLUS ONE Stop: 07/15/24 12:47 Last Infusion: 07/15/24 13:23 Dose: Infused Documented By: Admin: 07/15/24 12:08 Dose: 1,000 mls/hr Documented By: LISETTE Vital Signs Vital signs: Vital Signs - 8 hr 07/15/24 10:16 07/15/24 11:30 07/15/24 12:00 Temperature 99.2 F Pulse Rate 65 70 68 Pulse Rate [Orthostatic Lying] Pulse Rate [Orthostatic Sitting] Pulse Rate [Orthostatic Standing] Respiratory Rate 19 26 H 21 Blood Pressure 117/56 L 139/69 125/69 Blood Pressure [Orthostatic Lying] Blood Pressure [Orthostatic Sitting] Blood Pressure [Orthostatic Standing] Pulse Oximetry 92 93 94 Oxygen Delivery Method Room Air 07/15/24 13:15 07/15/24 13:36 07/15/24 14:00 Temperature Pulse Rate 73 70 Pulse Rate [Orthostatic Lying] 68 Pulse Rate [Orthostatic Sitting] 72 Pulse Rate [Orthostatic Standing] 73 Respiratory Rate 21 20 Blood Pressure 154/78 H 145/74 H Blood Pressure [Orthostatic Lying] 152/73 H Blood Pressure [Orthostatic Sitting] 140/76 Blood Pressure [Orthostatic Standing] 139/71 Pulse Oximetry 98 96 Oxygen Delivery Method 07/15/24 14:30 Temperature Pulse Rate 70 Pulse Rate [Orthostatic Lying] Pulse Rate [Orthostatic Sitting] Pulse Rate [Orthostatic Standing] Respiratory Rate 18 Blood Pressure 151/82 H Blood Pressure [Orthostatic Lying] Blood Pressure [Orthostatic Sitting] Blood Pressure [Orthostatic Standing] Pulse Oximetry 95 Oxygen Delivery Method MDM - SOB/Dyspnea Lab Data 07/15/24 10:48 07/15/24 10:48 Labs: Lab Results 07/15/24 Range/Units 10:48 WBC 4.4 L (4.5-11.0) X10^3/uL RBC 4.40 (4.0-5.2) X10^6/uL Hgb 14.2 (12.0-16.0) g/dL Hct 41.2 (36-46) % MCV 93.6 (80-100) fL MCH 32.2 (26-34) PG MCHC 34.4 (30-36) % RDW 12.4 (11.6-14.8) % Plt Count 168 (150-400) X10^3/uL Neut % (Auto) 75.3 H (50-75) % Lymph % (Auto) 14.9 L (25-40) % Benzie % (Auto) 8.8 (3-14) % Eos % (Auto) 0.1 L (2-4) % Baso % (Auto) 0.9 (0-2) % Neut # (Auto) 3300 (1317-1905) /uL Lymph # (Auto) 700 L (5923-2256) /uL Benzie # (Auto) 400 (0-900) /uL Eos # (Auto) 0 (0-450) /uL Baso # (Auto) 0 (0-100) /uL PT 16.5 H (9.4-12.5) SECONDS INR 1.5 H (0.9-1.3) Sodium 138 (137-145) mmol/L Potassium 4.4 (3.4-5.1) mmol/L Chloride 100 (98-107) mmol/L Carbon Dioxide 29 (22-32) mmol/L BUN 17 (7-17) mg/dL Creatinine 0.92 (0.52-1.04) mg/dL Estimated GFR > 60 (>60) mL/min BUN/Creatinine Ratio 18.5 (6-22) Glucose 144 H (80-110) mg/dL Lactate 0.9 (0.7-2.1) mmol/L Calcium 9.5 (8.4-10.2) mg/dL Total Bilirubin 0.3 (0.2-1.3) mg/dL AST 32 (14-36) IU/L ALT 24 (<35) IU/L Alkaline Phosphatase 67 (38-126) U/L Troponin I < 0.012 (0.01-0.034) ng/mL NT-Pro-B Natriuret Pep 285 H (<125) pg/mL Total Protein 7.0 (6.3-8.2) g/dL Albumin 4.2 (3.5-5.0) g/dL Globulin 2.8 (1.7-4.1) g/dL Albumin/Globulin Ratio 1.5 (1.0-2.8) Patient's lab work reviewed, no significant leukocytosis found to be 4.4, hemoglobin 14.2 doubt anemia as the cause of patient's symptoms, patient's platelet count 168. ECG Data Attestation: I personally reviewed and interpreted this ECG as follows: Interpretation: Evaluated patient has EKG that shows a normal sinus rhythm with a rate of 67, no significant ST elevation or depression meeting STEMI criteria, RI interval 168, QTC 437, no signs of S1 Q3 T3 MDM Narrative Medical decision making narrative: INITIAL EVALUATION AND PLAN: - Chest X-ray to rule out pneumonia. - Lab work to check electrolytes. - Orthostatic vital signs to assess for orthostatic hypotension. - IV fluids to aid hydration and potentially alleviate dizziness. - Continue monitoring and reassess based on lab results and chest X-ray findings. - EKG reviewed, showing no concerning findings, good rhythm, and no tachycardia. Differential diagnosis includes but is not limited to: pneumonia, dehydration, electrolyte imbalance, orthostatic hypotension, arrhythmia. On evaluation patient does have positive orthostatics, believe that this may be contributing, patient does feel somewhat better after L of fluids but not 100% Patient evaluated through the [place] syncope risk score and deemed low risk due to history only of AFib but status ablation, normal vital signs negative troponin, no abnormalities on EKG today that are concerning no prolonged QRS duration, QTC prolongation or significantly abnormal axis. Suspect that patient's symptoms may be in the context of a recent upper respiratory tract infection and potential dehydration, we discussed conservative management as well as the need to return to the emergency department for worsening symptoms. Discharge Plan Departure Patient Disposition: Home Clinical Impression: Weakness Activity Restrictions/Additional Instructions: You were seen in the emergency department today unfortunately had a reassuring workup with normal labs, imaging, EKG and blood work. Please continue with Tylenol, ibuprofen and conservative management of a likely upper respiratory tract infection. There is no signs of a pneumonia today however if you have worsening fevers chills or symptoms please return to the ED. Please use a cane or walker as needed while you are feeling more weak. Please follow-up with your primary care doctor as soon as possible Prescriptions: No Action Xarelto 2.5 mg tablet 2.5 mg PO BID Mastectomy bra and left sided breast prosthesis See Rx Instructions .ROUTE .COMPLEX Qty: 5 0RF Rx Instructions: Left sided breast prosthesis. Fit and provide 5 mastectomy bras. rosuvastatin 10 mg tablet 10 mg PO ONCE PM metoprolol succinate 25 mg tablet extended release 24 hr 25 mg PO DAILY duloxetine 30 mg capsule,delayed release(DR/EC) 30 mg PO DAILY Patient Comments: tapering off Referrals: Ray Sarmiento MD [Primary Care Provider] - Stand Alone Forms: Patient Portal/API/Survey
[2024-07-15 11:23] LABS: NT-proBNP (BNP-Adult 18+) 285 pg/mL (<125); Troponin I < 0.012 ng/mL (0.01-0.034)
--- NOTE | 2024-07-15 11:32 | PC.NURSE ---
Pt reports dizziness; pt states this is how she knows she has pneumonia. Respirations regular and unlabored. Dry, intermittent cough noted.
[2024-07-15] MEDS: LACTATED RINGERS 1,000 ML 1000 ML IV (12:08)
== END 2024-07-15 14:55 | disposition home or self-care (01) ==
PROVIDERS: Emergency Provider Emergency Medicine; PCP Internal Medicine
DX: R53.1 Weakness (principal); R20.2 Paresthesia of skin; R50.9 Fever, unspecified; I48.91 Unspecified atrial fibrillation; Z79.01 Long term (current) use of anticoagulants; R06.02 Shortness of breath
CPT/HCPCS: 71045; 80053; 83605; 83880; 84484; 85025; 85610; 93005; 93010; 96360; 99284

== ENCOUNTER → 2024-08-29 14:55 | Outpatient (CLI) | payer MEDICARE, OTHER, SELFPAY ==
--- NOTE | 2024-08-29 14:56 | DI.MG.S_ITS ---
MM screening mammo unilat RT: 08/29/2024. BI-RADS: 1 CLINICAL: 69-year old female for right screening mammogram. No Tyrer-Cuzick risk score calculation due to the patient's personal history of breast cancer. Patient reports a history of left breast carcinoma diagnosed at age 42. Status-post left mastectomy with chemotherapy and hormonal therapy. No first-degree family history of breast cancer. Current reported family history of breast cancer: paternal aunt. The patient reports testing negative for BRCA gene mutation. PRIOR EXAMS 07/08/2023, 06/28/2022, 06/26/2021, 06/22/2020, 06/21/2019, 04/26/2018, 04/22/2017, 04/04/2016, 02/27/2015. MAMMOGRAPHY TECHNIQUE: 2D and 3D (tomosynthesis) digital mammographic views obtained, with additional images as needed for full coverage. Current study was also evaluated with a Computer Aided Detection (CAD) system. DENSITY Right: B. There are scattered areas of fibroglandular density. MAMMOGRAPHY FINDINGS Right: No suspicious mass, asymmetry, microcalcification, or other abnormality seen. No significant change from comparison. IMPRESSION: Right * No evidence of malignancy. RECOMMENDATIONS Right * Annual screening mammography. OVERALL ASSESSMENT CATEGORY BI-RADS-1: Negative. The [employer] recommends annual screening mammography beginning at age 40 for women with average risk of breast cancer. ELECTRONICALLY SIGNED: Anastasiya Melchor M.D. on 08/29/2024 at 05:52:28 PM PT Interpreting Station ID: [id number]
== END ==
PROVIDERS: PCP Internal Medicine; Referring Provider Internal Medicine; Visit Provider Internal Medicine
DX: Z12.31 Encounter for screening mammogram for malignant neoplasm of breast (principal); R92.321 Mammographic fibroglandular density, right breast; Z85.3 Personal history of malignant neoplasm of breast; Z90.12 Acquired absence of left breast and nipple; Z80.3 Family history of malignant neoplasm of breast
CPT/HCPCS: 77063; 77067